=== PATIENT | male | born 1965 | race Caucasian/White ===

== ENCOUNTER 2021-09-26 20:43 | Inpatient (IN) | payer OTHER, SELFPAY ==
[2021-09-26 20:51] VITALS: BMI 26.9
[2021-09-26] MEDS: QUEtiapine Fumarate 50 MG TABLET PO (22:37)
[2021-09-26] MEDS: Doxepin HCl 10 MG CAPSULE 20 MG PO (22:37)
[2021-09-26] MEDS: QUEtiapine Fumarate 200 MG TABLET PO (22:37)
[2021-09-26] MEDS: Zolpidem Tartrate 5 MG TABLET 10 MG PO (22:37)
[2021-09-26] MEDS: Gabapentin 400 MG CAPSULE 1200 MG PO (22:37)
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
[2021-09-26] MEDS: clonazePAM 1 MG TABLET PO (22:46)
[2021-09-26 23:12] VITALS: BP 153/99; PULSE 65; RESP 16; TEMP 36.4; O2SAT 95
[2021-09-27] MEDS: clonazePAM 1 MG TABLET PO ×4 (03:37→20:26)
[2021-09-27] MEDS: hydrOXYzine HCL 25 MG TABLET PO ×2 (04:13→20:27)
[2021-09-27] MEDS: QUEtiapine Fumarate 50 MG TABLET PO ×3 (08:37→20:22)
[2021-09-27] MEDS: Gabapentin 400 MG CAPSULE 1200 MG PO ×3 (08:37→20:21)
[2021-09-27] MEDS: lisinopriL 40 MG TABLET PO (08:38)
[2021-09-27] MEDS: Cyclobenzaprine HCl 10 MG TABLET PO (08:39)
[2021-09-27] MEDS: Loratadine 10 MG TABLET PO (08:41)
[2021-09-27 09:01] VITALS: BP 168/110; PULSE 85; RESP 16
[2021-09-27] MEDS: methADONE HCl 20 MG/2 ML ORAL.CONC 165 MG PO (09:55)
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
[2021-09-27] MEDS: NaPROXEN 500 MG TABLET PO ×2 (15:24→20:22)
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
[2021-09-27 20:20] VITALS: BP 137/87; PULSE 86; TEMP 36.4
[2021-09-27] MEDS: Zolpidem Tartrate 5 MG TABLET 10 MG PO (20:20)
[2021-09-27] MEDS: Doxepin HCl 10 MG CAPSULE 20 MG PO (20:21)
[2021-09-27] MEDS: QUEtiapine Fumarate 200 MG TABLET PO (20:22)
[2021-09-28] MEDS: Throat Lozenge, Medicated LOZENGE 1 LOZENGE MUCOUS MEM ×3 (04:29→20:39)
[2021-09-28] MEDS: clonazePAM 1 MG TABLET PO ×4 (04:29→20:34)
[2021-09-28 06:00] VITALS: BP 134/91; PULSE 79; TEMP 36.3; O2SAT 95
[2021-09-28] MEDS: Gabapentin 400 MG CAPSULE 1200 MG PO ×3 (08:44→20:35)
[2021-09-28] MEDS: methADONE HCl 20 MG/2 ML ORAL.CONC 165 MG PO (08:44)
[2021-09-28] MEDS: NaPROXEN 500 MG TABLET PO ×2 (08:45→20:33)
[2021-09-28] MEDS: lisinopriL 40 MG TABLET PO (08:45)
[2021-09-28] MEDS: Loratadine 10 MG TABLET PO (08:45)
[2021-09-28] MEDS: QUEtiapine Fumarate 50 MG TABLET PO ×3 (08:45→20:35)
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
[2021-09-28] MEDS: Cyclobenzaprine HCl 10 MG TABLET PO ×2 (14:37→20:39)
[2021-09-28 17:15] VITALS: BP 134/81; PULSE 81; TEMP 36.6
[2021-09-28] MEDS: Doxepin HCl 10 MG CAPSULE 20 MG PO (20:32)
[2021-09-28] MEDS: Zolpidem Tartrate 5 MG TABLET 10 MG PO (20:32)
[2021-09-28] MEDS: QUEtiapine Fumarate 200 MG TABLET PO (20:35)
[2021-09-29] MEDS: clonazePAM 1 MG TABLET PO ×4 (03:52→19:53)
[2021-09-29] MEDS: Throat Lozenge, Medicated LOZENGE 1 LOZENGE MUCOUS MEM (03:52)
[2021-09-29 06:00] VITALS: BP 143/93; PULSE 83; RESP 18; TEMP 36.9; O2SAT 96
[2021-09-29] MEDS: NaPROXEN 500 MG TABLET PO ×2 (06:25→17:32)
[2021-09-29] MEDS: Cyclobenzaprine HCl 10 MG TABLET PO ×3 (06:26→19:53)
[2021-09-29] MEDS: Gabapentin 400 MG CAPSULE 1200 MG PO ×3 (08:23→19:54)
[2021-09-29] MEDS: Loratadine 10 MG TABLET PO (08:24)
[2021-09-29] MEDS: methADONE HCl 20 MG/2 ML ORAL.CONC 165 MG PO (08:24)
[2021-09-29] MEDS: hydrOXYzine HCL 25 MG TABLET PO (08:24)
[2021-09-29] MEDS: QUEtiapine Fumarate 50 MG TABLET PO ×3 (08:24→19:54)
[2021-09-29] MEDS: lisinopriL 40 MG TABLET PO (08:24)
[2021-09-29] MEDS: Metoprolol Tartrate 100 MG TABLET PO (12:50)
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
[2021-09-29] MEDS: Lidocaine 4 % Patch ADH..PATCH 1 PATCH TRANSDERMA (18:10)
[2021-09-29 18:50] VITALS: BP 150/80; PULSE 65; RESP 16; TEMP 36.4; O2SAT 97
[2021-09-29] MEDS: traZODone HCL 50 MG TABLET PO (19:53)
[2021-09-29] MEDS: Doxepin HCl 10 MG CAPSULE 20 MG PO (19:53)
[2021-09-29] MEDS: Zolpidem Tartrate 5 MG TABLET 10 MG PO (19:54)
[2021-09-29] MEDS: QUEtiapine Fumarate 200 MG TABLET PO (19:54)
[2021-09-30] MEDS: traZODone HCL 50 MG TABLET PO ×2 (00:53→19:38)
[2021-09-30] MEDS: clonazePAM 1 MG TABLET PO ×4 (00:53→19:38)
[2021-09-30] MEDS: Throat Lozenge, Medicated LOZENGE 1 LOZENGE MUCOUS MEM ×2 (00:53→14:07)
[2021-09-30] MEDS: NaPROXEN 500 MG TABLET PO ×2 (05:39→19:37)
[2021-09-30 05:55] VITALS: BP 145/94; PULSE 69; RESP 18; TEMP 36.3; O2SAT 98
[2021-09-30] MEDS: Loratadine 10 MG TABLET PO (07:49)
[2021-09-30] MEDS: Metoprolol Tartrate 100 MG TABLET PO (07:49)
[2021-09-30] MEDS: Gabapentin 400 MG CAPSULE 1200 MG PO ×3 (07:49→19:39)
[2021-09-30] MEDS: lisinopriL 40 MG TABLET PO (07:49)
[2021-09-30] MEDS: Lidocaine 4 % Patch ADH..PATCH 1 PATCH TRANSDERMA (07:49)
[2021-09-30] MEDS: methADONE HCl 20 MG/2 ML ORAL.CONC 165 MG PO (07:50)
[2021-09-30] MEDS: QUEtiapine Fumarate 50 MG TABLET PO ×3 (07:50→19:37)
[2021-09-30] MEDS: Cyclobenzaprine HCl 10 MG TABLET PO ×3 (08:07→19:36)
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
[2021-09-30 16:20] VITALS: BP 106/69; PULSE 60; TEMP 36.4
[2021-09-30] MEDS: Doxepin HCl 10 MG CAPSULE 20 MG PO (19:37)
[2021-09-30] MEDS: QUEtiapine Fumarate 200 MG TABLET PO (19:38)
[2021-09-30] MEDS: Zolpidem Tartrate 5 MG TABLET 10 MG PO (19:39)
[2021-10-01] MEDS: clonazePAM 1 MG TABLET PO ×3 (01:41→13:44)
[2021-10-01] MEDS: traZODone HCL 50 MG TABLET PO (01:42)
[2021-10-01] MEDS: Throat Lozenge, Medicated LOZENGE 1 LOZENGE MUCOUS MEM (05:07)
[2021-10-01] MEDS: Cyclobenzaprine HCl 10 MG TABLET PO ×2 (05:50→13:44)
[2021-10-01] MEDS: NaPROXEN 500 MG TABLET PO (05:51)
[2021-10-01 06:00] VITALS: BP 135/87; PULSE 67; TEMP 37.2; O2SAT 98
[2021-10-01] MEDS: QUEtiapine Fumarate 50 MG TABLET PO (07:57)
[2021-10-01] MEDS: Loratadine 10 MG TABLET PO (07:57)
[2021-10-01] MEDS: lisinopriL 40 MG TABLET PO (07:57)
[2021-10-01] MEDS: Metoprolol Tartrate 100 MG TABLET PO (07:58)
[2021-10-01] MEDS: methADONE HCl 20 MG/2 ML ORAL.CONC 165 MG PO (07:58)
[2021-10-01] MEDS: Lidocaine 4 % Patch ADH..PATCH 1 PATCH TRANSDERMA (07:58)
[2021-10-01] MEDS: Gabapentin 400 MG CAPSULE 1200 MG PO (07:58)
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
== END 2021-10-01 14:35 | disposition other institution (70) | DRG 755 ==
PROVIDERS: Admitting Provider Psychiatry & Neurology Psychiatry; PCP Colon & Rectal Surgery; Visit Provider Psychiatry & Neurology Psychiatry
DX: F43.25 Adjustment disorder with mixed disturbance of emotions and conduct (principal); R45.851 Suicidal ideations; F11.20 Opioid dependence, uncomplicated; F32.A Depression, unspecified; I10 Essential (primary) hypertension; G89.29 Other chronic pain; F43.12 Post-traumatic stress disorder, chronic; G47.00 Insomnia, unspecified; Z88.6 Allergy status to analgesic agent; Z79.899 Other long term (current) drug therapy

== ENCOUNTER 2021-11-14 12:23 | Emergency (ER) | payer OTHER, SELFPAY ==
[2021-11-14] MEDS: Ondansetron ODT 4 MG TAB.RAPDIS TRANSLINGU (12:58)
[2021-11-14 13:01] VITALS: BP 175/90; PULSE 80; RESP 18; TEMP 36.6; O2SAT 97; BMI 25.2
[2021-11-14 13:15] LABS: MANUAL DIFF FLAG NO
[2021-11-14 13:17] LABS: Basophils Percent Auto 0.1 % (0-2); Hematocrit 36.3 % (42.0-52.0); Hemoglobin 12.1 g/dl (14.0-18.0); Imm Gran Abs Auto 0.02 X10*3/uL (0.00-0.03); Imm Gran Pct Auto 0.3 % (0.0-0.4); Lymphocytes Absolute Auto 1.1 X10*3/uL (1.2-4.9); Lymphocytes Percent Auto 14.2 % (20-40); Mean Corpuscular HGB Conc 33.3 g/dl (31.0-36.0); Mean Corpuscular Hemoglobin 30.4 pg (27.0-33.0); Mean Corpuscular Volume 91.2 fL (80.0-98.0); Mean Platelet Volume 10.2 fL (9.4-12.4); Monocytes Absolute Auto 0.4 X10*3/uL (0.1-1.2); Monocytes Percent Auto 5.6 % (2-11); Neutrophils Absolute Auto 6.1 x10*3/uL (2.0-8.3); Neutrophils Percent Auto 79.8 % (45-73); Platelet Count 299 X10*3/uL (160-400); Red Blood Count 3.98 X10*6/uL (4.60-5.80); Red Cell Distribution Width 13.2 % (11.0-16.0); White Blood Count 7.7 X10*3/uL (4.8-10.8)
[2021-11-14 13:31] LABS: Anion Gap 16 (12-20); Blood Urea Nitrogen 6 mg/dL (9-16); Carbon Dioxide 26 mmol/L (22-29); Chloride 101 mmol/L (96-108); Creatinine Clr Calc Pharmacy 86.1; Estimated Glomerular Filt Rate > 60; Glucose Random 123 mg/dL (60-115); Potassium 3.7 mmol/L (3.3-5.1); Sodium 139 mmol/L (135-145)
--- NOTE | 2021-11-14 17:10 | PC.NURSE ---
other staff members concerned about patient orientation. patient is no longer vomiting, and is ambulating without difficulty. RN reassessing patient, patient confused to date, but oriented to place and situation and self. patient reports he would like to leave, charge made aware of patient's confusion, attempting to convice patient to remain for further assessment. patient denies any alcohol use, and is displaying no other symptoms of possible withdrawal other then mild confusion
--- NOTE | 2021-11-14 17:38 | ED.GENADULT ---
HPI - General Adult General Chief complaint: Nausea/Vomiting/Diarrhea Stated complaint: NAUSEA/VOMITING TODAY PER EMS Time Seen by Provider: 11/14/21 17:29 Source: patient Mode of arrival: EMS Limitations: no limitations History of Present Illness HPI narrative: Patient ran out of his Ativan complaining of anxiety multiple complaints throat pain very vague about symptoms also complained of body pain all over patient noncompliant with his medication has not taken his medicine for last 2- 3 days on arrival patient's blood pressure was 175/90 Related Data Home Medications Medication Instructions Recorded Confirmed albuterol sulfate 90 mcg/actuation 1 puff PO QID PRN 09/26/21 09/26/21 aerosol inhaler (ProAir HFA) cyclobenzaprine 10 mg tablet 1 tab PO TID PRN 09/26/21 09/26/21 doxepin 10 mg capsule 2 cap PO BEDTIME 09/26/21 09/26/21 gabapentin 800 mg tablet 1.5 tab PO TID 09/26/21 09/26/21 lisinopril 40 mg tablet 1 tab PO DAILY 09/26/21 09/26/21 loratadine 10 mg tablet 1 tab PO DAILY 09/26/21 09/26/21 naproxen 500 mg tablet 1 tab PO BID PRN 09/26/21 09/26/21 quetiapine 50 mg tablet 1 tab PO TID 09/26/21 09/26/21 zolpidem 10 mg tablet 1 tab PO BEDTIME 09/26/21 09/26/21 Previous Rx's Medication Instructions Recorded hydroxyzine HCl 25 mg tablet 25 mg PO TID PRN 30 Days #90 tab 10/01/21 lidocaine 4 % topical patch 1 patch TRANSDERMAL DAILY PRN 30 10/01/21 (Lidocaine Pain Relief) Days #30 ea lorazepam 1 mg tablet (Ativan) 1 mg PO BID PRN 16 Days #20 tab 10/01/21 methadone 10 mg/mL oral 165 mg (16.5 mL) PO DAILY #0 ml 10/01/21 concentrate (Methadose) metoprolol tartrate 100 mg tablet 100 mg PO DAILY 30 Days #30 tab 10/01/21 naloxone 4 mg/actuation nasal 4 mg INTRANASAL Q2M PRN 1 Days #1 10/01/21 spray (Narcan) ea quetiapine 100 mg tablet 200 mg PO BEDTIME 30 Days #60 tab 10/01/21 trazodone 50 mg tablet 50 mg PO BEDTIME PRN 30 Days #30 10/01/21 tab Allergies Allergy/AdvReac Type Severity Reaction Status Date / Time acetaminophen [From Tylenol] Allergy Shakiness Verified 09/26/21 21:06 ibuprofen [From Motrin] Allergy Abdominal Verified 09/26/21 21:06 Pain bee pollen [bee stings] AdvReac Severe Anaphylaxis Verified 09/26/21 21:06 Review of Systems Review of Systems: Yes all other systems are reviewed and are negative [facility] Past Medical History Medical History Chronic post-traumatic stress disorder (PTSD) Insomnia Social History Social History Household Members: Family Housing: Homeless Patient Tobacco Use Status: Never used Tobacco Substance Use Type: Heroin Advance Directives: No Advance Directives Information Provided: Yes service: No Sexual orientation: Straight/Heterosexual Physical Exam ED Vital Signs: Vital Signs - 24 hr 11/14/21 13:01 11/14/21 18:53 Temperature 98 F 97.5 F Pulse Rate 80 74 Respiratory Rate 18 17 Blood Pressure 175/90 H 163/113 H Pulse Oximetry 97 97 BMI result Body Mass Index 25.2 Appearance: Alert. Oriented X3. No acute distress. Anxious Eyes: PERRLA, No Nystagmus ENT: Pharynx normal. Oral Mucosa moist Neck: Normal inspection. Neck supple. CVS: Normal heart rate and rhythm. Pulses normal. Respiratory: No respiratory distress. Equal air entry bilateral, no wheezing/rales/rhonchi Abdomen: Soft and nontender. Bowel sounds are present, no mass palpable, Skin: Skin warm and dry. Normal skin color. Normal skin turgor. Extremities: No lower extremity edema. No calf tenderness Neuro: Oriented X 3. No motor deficit. No sensory deficit.No cerebellar signs , cranial nerves II-XII intact Medical Decision Making MDM Narrative Medical decision making narrative: Patient with anxiety with stable labs discharge patient home give Ativan and oxycodone in the ER Lab Data Lab results reviewed: Yes I reviewed the patient's lab results. Result diagrams: 11/14/21 13:05 11/14/21 13:05 Labs: Lab Results 11/14/21 11/14/2122 Range/Units 13:05 13:05 18:46 WBC 7.7 (4.8-10.8) X10*3/uL RBC 3.98 L (4.60-5.80) X10*6/uL Hgb 12.1 L (14.0-18.0) g/dl Hct 36.3 L (42.0-52.0) % MCV 91.2 (80.0-98.0) fL MCH 30.4 (27.0-33.0) pg MCHC 33.3 (31.0-36.0) g/dl RDW 13.2 (11.0-16.0) % Plt Count 299 (160-400) X10*3/uL MPV 10.2 (9.4-12.4) fL Immature Gran % (Auto) 0.3 (0.0-0.4) % Neut % (Auto) 79.8 H (45-73) % Lymph % (Auto) 14.2 L (20-40) % [place] % (Auto) 5.6 (2-11) % Eos % (Auto) 0.0 (0-4) % Baso % (Auto) 0.1 (0-2) % Lymph # (Auto) 1.1 L (1.2-4.9) X10*3/uL [place] # (Auto) 0.4 (0.1-1.2) X10*3/uL Eos # (Auto) 0.0 (0.0-0.4) X10*3/uL Baso # (Auto) 0.0 (0.0-0.2) X10*3/uL Abs Immat Gran (auto) 0.02 (0.00-0.03) X10*3/uL Absolute Neuts (auto) 6.1 (2.0-8.3) x10*3/uL Absolute Nucleated RBC 0.000 (0.0-0.012) X10*3/uL Nucleated RBC % (auto) 0.0 (0.0-0.2) /100WBC Sodium 139 (135-145) mmol/L Potassium 3.7 (3.3-5.1) mmol/L Chloride 101 (96-108) mmol/L Carbon Dioxide 26 (22-29) mmol/L Anion Gap 16 (12-20) BUN 6 L (9-16) mg/dL Creatinine 0.98 (0.5-1.4) mg/dL Estim Creat Clear Calc 86.1 Estimated GFR > 60 Random Glucose 123 H (60-115) mg/dL Calcium 10.0 (8.4-10.2) mg/dL Urine Color YELLOW Urine Appearance HAZY Urine pH 7.0 (5.0-8.0) Ur Specific [place] 1.020 (1.005-1.025) Urine Protein TRACE (NEG-TRACE) MG/DL Urine Glucose (UA) NEG (NEG) MG/DL Urine Ketones 5 (NEG) MG/DL Urine Blood NEG (NEG) Urine Nitrite NEG (NEG) Ur Leukocyte Esterase NEG (NEG) Urine RBC 0 (0) /HPF Urine WBC 0 (0-4) /HPF Ur Squamous Epith Cells NONE /LPF Amorphous Sediment 2+ /LPF Urine Bacteria 1+ /LPF Discharge Plan Discharge Clinical Impression: Anxiety Patient Disposition: Home, Self-Care Instructions: Anxiety (ED) Additional Instructions: Take medication as prescribed by psychiatrist and follow with them Prescriptions: No Action cyclobenzaprine 10 mg tablet 1 tab PO TID PRN (Reason: Muscle Spasm) 0RF doxepin 10 mg capsule 2 cap PO BEDTIME 0RF gabapentin 800 mg tablet 1.5 tab PO TID 0RF zolpidem 10 mg tablet 1 tab PO BEDTIME 0RF albuterol sulfate [ProAir HFA] 90 mcg/actuation HFA aerosol inhaler 1 puff PO QID PRN (Reason: wheezing) 0RF lisinopril 40 mg tablet 1 tab PO DAILY 0RF loratadine 10 mg tablet 1 tab PO DAILY 0RF naproxen 500 mg tablet 1 tab PO BID PRN (Reason: pain) 0RF quetiapine 50 mg tablet 1 tab PO TID 0RF metoprolol tartrate 100 mg Tablet 100 mg PO DAILY 30 Days Qty: 30 0RF Protocol: Hold for SBP/HR < HOLD for SBP < : 90 HOLD for HR < : 60 hydroxyzine HCl 25 mg Tablet 25 mg PO TID PRN (Reason: Anxiety) 30 Days Qty: 90 0RF trazodone 50 mg Tablet 50 mg PO BEDTIME PRN (Reason: Insomnia) 30 Days Qty: 30 0RF Rx Instructions: take if Ambien wares off methadone [Methadose] 10 mg/mL Concentrate 165 mg PO DAILY Qty: 0 0RF lidocaine [Lidocaine Pain Relief] 4 % Adhesive Patch,Medicated 1 patch transdermal DAILY PRN (Reason: back pain) 30 Days Qty: 30 0RF Protocol: Apply to: Apply to: back quetiapine 100 mg tablet 200 mg PO BEDTIME 30 Days Qty: 60 0RF lorazepam [Ativan] 1 mg tablet 1 mg PO BID PRN (Reason: anxiety/benzo withdrawal) 16 Days Qty: 20 0RF naloxone [Narcan] 4 mg/actuation spray,non-aerosol 4 mg intranasal Q2M PRN (Reason: opioid overdose) 1 Days Qty: 1 0RF Rx Instructions: spray 1 dose into ONE nostril; alternate nostrils w each dose until help arrives Interventions: ED Discharge Assessment Last Done: 11/14/21 19:19 Discharge Date/Time: 11/14/21 19:19
[2021-11-14] MEDS: oxyCODONE HCl Immed Release 5 MG TABLET PO (18:41)
[2021-11-14] MEDS: LORazepam 1 MG TABLET 2 MG PO (18:41)
[2021-11-14 18:53] VITALS: BP 163/113; PULSE 74; RESP 17; TEMP 36.4; O2SAT 97
[2021-11-14 18:54] LABS: Appearance Urine HAZY; Color Urine YELLOW; Glucose Urine UA NEG (NEG); Leukocyte Esterase Urine NEG (NEG); Nitrite Urine NEG (NEG); Urine Blood NEG (NEG); Urine Ketones 5 MG/DL (NEG); Urine Protein TRACE MG/DL (NEG-TRACE)
[2021-11-14 19:00] LABS: Amorphous Sediment Urine 2+ /LPF; Bacteria Urine 1+ /LPF; RBC Urine 0 /HPF (0); WBC Urine 0 /HPF (0-4)
[2021-11-14] MEDS: lisinopriL 40 MG TABLET PO (19:24)
[2021-11-14] MEDS: Metoprolol Tartrate 100 MG TABLET PO (19:25)
== END 2021-11-14 19:19 | disposition home or self-care (01) ==
PROVIDERS: Emergency Provider Internal Medicine
DX: F41.9 Anxiety disorder, unspecified (principal); R11.2 Nausea with vomiting, unspecified; M79.10 Myalgia, unspecified site; Z91.14 Patient's other noncompliance with medication regimen
CPT/HCPCS: 36415; 80048; 81001; 85025; 99283; 99284

== ENCOUNTER 2021-11-15 00:16 | Inpatient (IN) | payer OTHER, SELFPAY ==
--- NOTE | 2021-11-15 | ECG_ITS ---
Test Reason : MED CLEARANCE Blood Pressure : / mmHG Vent. Rate : 074 BPM Atrial Rate : 074 BPM P-R Int : 134 ms QRS Dur : 104 ms QT Int : 398 ms P-R-T Axes : 053 015 053 degrees QTc Int : 441 ms Normal sinus rhythm Incomplete right bundle branch block Borderline ECG No previous ECGs available Referred By: Hodan Zaidi Electronically Signed By:AQUILES SABA MD
--- NOTE | 2021-11-15 00:27 | ED.PSYCH ---
HPI - Psych General Chief Complaint: Psychiatric Symptoms Stated Complaint: Psych Time Seen by Provider: 11/15/21 00:26 Source: patient and old records reviewed Mode of arrival: EMS Limitations: other (poor historian confusion) History of Present Illness MD complaint: anxiety and other (delusions, found wandering) Onset (ago): month(s) (1) Duration: constant History of same: Yes Relieving factors: none Exacerbating factors: none Context: other ( I haven't been right for about a month ) Associated psychiatric symptoms: delusions Associated symptoms: denies other symptoms Treatments prior to arrival: none Related Data Home Medications Medication Instructions Recorded Confirmed doxepin 10 mg capsule 2 cap PO BEDTIME 09/26/21 11/15/21 gabapentin 800 mg tablet 1.5 tab PO TID 09/26/21 11/15/21 lisinopril 40 mg tablet 1 tab PO DAILY 09/26/21 11/15/21 naproxen 500 mg tablet 1 tab PO BID PRN 09/26/21 11/15/21 albuterol sulfate 90 mcg/actuation 1 puff PO QID PRN 11/15/21 11/15/21 aerosol inhaler (ProAir HFA) clonazepam 1 mg tablet 1 tab PO QID PRN 11/15/21 11/15/21 loratadine 10 mg tablet 1 tab PO DAILY 11/15/21 11/15/21 metoprolol succinate 100 mg 1 tab PO DAILY 11/15/21 11/15/21 tablet,extended release 24 hr primidone 50 mg tablet 1 tab PO TID 11/15/21 11/15/21 quetiapine 50 mg tablet 1 tab PO TID 11/15/21 11/15/21 umeclidinium 62.5 mcg/actuation 1 puff PO DAILY 11/15/21 11/15/21 blister powder for inhalation (Incruse Ellipta) zolpidem 10 mg tablet 1 tab PO BEDTIME 11/15/21 11/15/21 Previous Rx's Medication Instructions Recorded hydroxyzine HCl 25 mg tablet 25 mg PO TID PRN 30 Days #90 tab 10/01/21 methadone 10 mg/mL oral 165 mg (16.5 mL) PO DAILY #0 ml 10/01/21 concentrate (Methadose) Allergies Allergy/AdvReac Type Severity Reaction Status Date / Time acetaminophen [From Tylenol] Allergy Shakiness Verified 09/26/21 21:06 ibuprofen [From Motrin] Allergy Abdominal Verified 09/26/21 21:06 Pain bee pollen [bee stings] AdvReac Severe Anaphylaxis Verified 09/26/21 21:06 Review of Systems Review of Systems: ROS unable to be obtained due to poor historian and confusion PMFSH Past Medical History Attestation statement: The following information was validated with the patient. Medical History Chronic post-traumatic stress disorder (PTSD) Insomnia Social History Social History Household Members: Family Housing: Homeless Patient Tobacco Use Status: Never used Tobacco Substance Use Type: Heroin Advance Directives: No Advance Directives Information Provided: Yes service: No Sexual orientation: Straight/Heterosexual Physical Exam Vital Signs: Vital Signs: Last Vital Signs Temp 97.8 F 11/15/21 00:32 Pulse 61 11/15/21 00:32 Resp 16 11/15/21 00:32 BP 157/105 H 11/15/21 00:32 Pulse Ox 97 11/15/21 00:32 BMI result Body Mass Index 26.6 Appearance: Alert. Oriented X3. Anxious mild acute distress. Clothes are wet Eyes: Pupils equal, round and reactive to light. ENT: Pharynx normal. Neck: Normal inspection. Neck supple. CVS: tachycardic heart rate and rhythm. Pulses normal. Respiratory: No respiratory distress. Breath sounds normal. Abdomen: Soft and nontender. Skin: Skin warm and dry. Normal skin color. Normal skin turgor. Extremities: No lower extremity edema. Neuro: Oriented X 3. No motor deficit. No sensory deficit. Cn2-12 intact Psych: started to mutter to himself about not following the master and listening to his dad I know what I'm saying is not right when asked how long this has been going on he states the last month Course Course Course Narrative: Physician observation started at 207am. Patient placed in physician observation because the patient needed more time for BHN to asses the need for psych admission. At the time observation was started the patient's vitals were stable, patient is alert and oriented but slightly anxious, Neuro: nonfocal, CV RRR, Lungs clear PRN ativan and olanzapine given his agitation and delusions MDM - Psych MDM Narrative Medical decision making narrative: 55 yo male with hx of PTSD, insomnia, susbstance abuse, HTN comes in with c/o delusions, muttering to himself, found wandering in the rain. Notes he hasn't been himself for a bout a month. Admitted back in September for anxiety, insomnia and PTSD - at this time will need labs, drug screen, PO ativan for anxiety, will order N consult. Lab Data Result diagrams: 11/15/21 01:27 11/15/21 01:27 Labs: Lab Results 11/15/21 11/15/21 11/15/21 Range/Units 00:47 01:27 01:27 WBC 11.3 H (4.8-10.8) X10*3/uL RBC 4.45 L (4.60-5.80) X10*6/uL Hgb 13.7 L (14.0-18.0) g/dl Hct 41.4 L (42.0-52.0) % MCV 93.0 (80.0-98.0) fL MCH 30.8 (27.0-33.0) pg MCHC 33.1 (31.0-36.0) g/dl RDW 13.2 (11.0-16.0) % Plt Count 299 (160-400) X10*3/uL MPV 10.6 (9.4-12.4) fL Immature Gran % (Auto) 0.4 (0.0-0.4) % Neut % (Auto) 83.2 H (45-73) % Lymph % (Auto) 11.6 L (20-40) % [place] % (Auto) 4.4 (2-11) % Eos % (Auto) 0.1 (0-4) % Baso % (Auto) 0.3 (0-2) % Lymph # (Auto) 1.3 (1.2-4.9) X10*3/uL [place] # (Auto) 0.5 (0.1-1.2) X10*3/uL Eos # (Auto) 0.0 (0.0-0.4) X10*3/uL Baso # (Auto) 0.0 (0.0-0.2) X10*3/uL Abs Immat Gran (auto) 0.05 H (0.00-0.03) X10*3/uL Absolute Neuts (auto) 9.4 H (2.0-8.3) x10*3/uL Absolute Nucleated RBC 0.000 (0.0-0.012) X10*3/uL Nucleated RBC % (auto) 0.0 (0.0-0.2) /100WBC Sodium 138 (135-145) mmol/L Potassium 3.5 (3.3-5.1) mmol/L Chloride 99 (96-108) mmol/L Carbon Dioxide 25 (22-29) mmol/L Anion Gap 18 (12-20) BUN 10 D (9-16) mg/dL Creatinine 1.08 (0.5-1.4) mg/dL Estim Creat Clear Calc 73.1 Estimated GFR > 60 Random Glucose 108 (60-115) mg/dL Calcium 10.2 (8.4-10.2) mg/dL Magnesium 1.8 (1.6-2.6) mg/dL Total Bilirubin 0.8 (0.0-1.0) mg/dL Direct Bilirubin 0.3 (0.0-0.5) mg/dL AST 16 (5-37) U/L ALT 7 (0-40) U/L Alkaline Phosphatase 75 (39-117) U/L Ammonia (13-55) umol/L Total Protein 8.6 H (6.5-8.0) g/dL Albumin 4.5 (3.5-5.0) g/dL TSH (0.32-4.0) uIU/mL Urine Opiates Screen (Not Detect) Urine Fentanyl Screen (Not Detect) Ur Barbiturates Screen (Not Detect) Ur Phencyclidine Scrn (Not Detect) Ur Amphetamines Screen (Not Detect) U Benzodiazepines Scrn (Not Detect) Urine Cocaine Screen (Not Detect) U Marijuana (THC) Screen (Not Detect) Ethyl Alcohol mg/dL COVID-19 (JABARI) Negative (Negative) COVID-19 Clin Com See Note 11/15/21 11/15/21 11/15/21 Range/Units 01:27 01:27 02:05 WBC (4.8-10.8) X10*3/uL RBC (4.60-5.80) X10*6/uL Hgb (14.0-18.0) g/dl Hct (42.0-52.0) % MCV (80.0-98.0) fL MCH (27.0-33.0) pg MCHC (31.0-36.0) g/dl RDW (11.0-16.0) % Plt Count (160-400) X10*3/uL MPV (9.4-12.4) fL Immature Gran % (Auto) (0.0-0.4) % Neut % (Auto) (45-73) % Lymph % (Auto) (20-40) % [place] % (Auto) (2-11) % Eos % (Auto) (0-4) % Baso % (Auto) (0-2) % Lymph # (Auto) (1.2-4.9) X10*3/uL [place] # (Auto) (0.1-1.2) X10*3/uL Eos # (Auto) (0.0-0.4) X10*3/uL Baso # (Auto) (0.0-0.2) X10*3/uL Abs Immat Gran (auto) (0.00-0.03) X10*3/uL Absolute Neuts (auto) (2.0-8.3) x10*3/uL Absolute Nucleated RBC (0.0-0.012) X10*3/uL Nucleated RBC % (auto) (0.0-0.2) /100WBC Sodium (135-145) mmol/L Potassium (3.3-5.1) mmol/L Chloride (96-108) mmol/L Carbon Dioxide (22-29) mmol/L Anion Gap (12-20) BUN (9-16) mg/dL Creatinine (0.5-1.4) mg/dL Estim Creat Clear Calc Estimated GFR Random Glucose (60-115) mg/dL Calcium (8.4-10.2) mg/dL Magnesium (1.6-2.6) mg/dL Total Bilirubin (0.0-1.0) mg/dL Direct Bilirubin (0.0-0.5) mg/dL AST (5-37) U/L ALT (0-40) U/L Alkaline Phosphatase (39-117) U/L Ammonia 27 (13-55) umol/L Total Protein (6.5-8.0) g/dL Albumin (3.5-5.0) g/dL TSH 1.68 (0.32-4.0) uIU/mL Urine Opiates Screen (Not Detect) Urine Fentanyl Screen (Not Detect) Ur Barbiturates Screen (Not Detect) Ur Phencyclidine Scrn (Not Detect) Ur Amphetamines Screen (Not Detect) U Benzodiazepines Scrn (Not Detect) Urine Cocaine Screen (Not Detect) U Marijuana (THC) Screen (Not Detect) Ethyl Alcohol < 10 mg/dL COVID-19 (JABARI) (Negative) COVID-19 Clin Com 11/15/21 Range/Units 03:46 WBC (4.8-10.8) X10*3/uL RBC (4.60-5.80) X10*6/uL Hgb (14.0-18.0) g/dl Hct (42.0-52.0) % MCV (80.0-98.0) fL MCH (27.0-33.0) pg MCHC (31.0-36.0) g/dl RDW (11.0-16.0) % Plt Count (160-400) X10*3/uL MPV (9.4-12.4) fL Immature Gran % (Auto) (0.0-0.4) % Neut % (Auto) (45-73) % Lymph % (Auto) (20-40) % [place] % (Auto) (2-11) % Eos % (Auto) (0-4) % Baso % (Auto) (0-2) % Lymph # (Auto) (1.2-4.9) X10*3/uL [place] # (Auto) (0.1-1.2) X10*3/uL Eos # (Auto) (0.0-0.4) X10*3/uL Baso # (Auto) (0.0-0.2) X10*3/uL Abs Immat Gran (auto) (0.00-0.03) X10*3/uL Absolute Neuts (auto) (2.0-8.3) x10*3/uL Absolute Nucleated RBC (0.0-0.012) X10*3/uL Nucleated RBC % (auto) (0.0-0.2) /100WBC Sodium (135-145) mmol/L Potassium (3.3-5.1) mmol/L Chloride (96-108) mmol/L Carbon Dioxide (22-29) mmol/L Anion Gap (12-20) BUN (9-16) mg/dL Creatinine (0.5-1.4) mg/dL Estim Creat Clear Calc Estimated GFR Random Glucose (60-115) mg/dL Calcium (8.4-10.2) mg/dL Magnesium (1.6-2.6) mg/dL Total Bilirubin (0.0-1.0) mg/dL Direct Bilirubin (0.0-0.5) mg/dL AST (5-37) U/L ALT (0-40) U/L Alkaline Phosphatase (39-117) U/L Ammonia (13-55) umol/L Total Protein (6.5-8.0) g/dL Albumin (3.5-5.0) g/dL TSH (0.32-4.0) uIU/mL Urine Opiates Screen Not Detected (Not Detect) Urine Fentanyl Screen POSITIVE H (Not Detect) Ur Barbiturates Screen POSITIVE H (Not Detect) Ur Phencyclidine Scrn Not Detected (Not Detect) Ur Amphetamines Screen Not Detected (Not Detect) U Benzodiazepines Scrn Not Detected (Not Detect) Urine Cocaine Screen POSITIVE H (Not Detect) U Marijuana (THC) Screen Not Detected (Not Detect) Ethyl Alcohol mg/dL COVID-19 (JABARI) (Negative) COVID-19 Clin Com Discharge Plan Discharge Clinical Impression: Anxiety, Polysubstance abuse Patient Disposition: Still a Patient Prescriptions: No Action clonazepam 1 mg tablet 1 tab PO QID PRN (Reason: Anxiety) 0RF quetiapine 50 mg tablet 1 tab PO TID 0RF metoprolol succinate 100 mg tablet extended release 24 hr 1 tab PO DAILY 0RF primidone 50 mg tablet 1 tab PO TID 0RF zolpidem 10 mg tablet 1 tab PO BEDTIME 0RF albuterol sulfate [ProAir HFA] 90 mcg/actuation HFA aerosol inhaler 1 puff PO QID PRN (Reason: wheezing) 0RF Incruse Ellipta 62.5 mcg/actuation blister with device 1 puff PO DAILY 0RF loratadine 10 mg tablet 1 tab PO DAILY 0RF doxepin 10 mg capsule 2 cap PO BEDTIME 0RF gabapentin 800 mg tablet 1.5 tab PO TID 0RF lisinopril 40 mg tablet 1 tab PO DAILY 0RF naproxen 500 mg tablet 1 tab PO BID PRN (Reason: pain) 0RF hydroxyzine HCl 25 mg Tablet 25 mg PO TID PRN (Reason: Anxiety) 30 Days Qty: 90 0RF methadone [Methadose] 10 mg/mL Concentrate 165 mg PO DAILY Qty: 0 0RF
[2021-11-15 00:32] VITALS: BP 157/105; PULSE 61; RESP 16; TEMP 36.6; O2SAT 97; BMI 26.6
[2021-11-15] MEDS: LORazepam 1 MG TABLET 2 MG PO (01:31)
[2021-11-15 01:34] LABS: Basophils Percent Auto 0.3 % (0-2); Eosinophils Percent Auto 0.1 % (0-4); Imm Gran Pct Auto 0.4 % (0.0-0.4); Lymphocytes Percent Auto 11.6 % (20-40); Mean Corpuscular Hemoglobin 30.8 pg (27.0-33.0); Mean Platelet Volume 10.6 fL (9.4-12.4); PLT CLUMP 1; Red Cell Distribution Width 13.2 % (11.0-16.0); SCAN SMEAR FLAG 1
[2021-11-15 01:35] LABS: Hematocrit 41.4 % (42.0-52.0); Hemoglobin 13.7 g/dl (14.0-18.0); Imm Gran Abs Auto 0.05 X10*3/uL (0.00-0.03); Lymphocytes Absolute Auto 1.3 X10*3/uL (1.2-4.9); Mean Corpuscular HGB Conc 33.1 g/dl (31.0-36.0); Monocytes Absolute Auto 0.5 X10*3/uL (0.1-1.2); Monocytes Percent Auto 4.4 % (2-11); Neutrophils Absolute Auto 9.4 x10*3/uL (2.0-8.3); Neutrophils Percent Auto 83.2 % (45-73); Red Blood Count 4.45 X10*6/uL (4.60-5.80)
[2021-11-15 01:36] LABS: White Blood Count 11.3 X10*3/uL (4.8-10.8)
[2021-11-15 01:37] LABS: COVID-19 Test Negative (Negative)
[2021-11-15 01:37] LABS: MANUAL DIFF FLAG NO
[2021-11-15 01:53] LABS: Platelet Count 299 X10*3/uL (160-400)
[2021-11-15 01:55] LABS: Ethanol < 10 mg/dL
[2021-11-15 01:59] LABS: Alanine Aminotransferase 7 U/L (0-40); Albumin Level 4.5 g/dL (3.5-5.0); Alkaline Phosphatase 75 U/L (39-117); Anion Gap 18 (12-20); Aspartate Amino Transferase 16 U/L (5-37); Bilirubin Direct 0.3 mg/dL (0.0-0.5); Bilirubin Total 0.8 mg/dL (0.0-1.0); Blood Urea Nitrogen 10 mg/dL (9-16); Calcium 10.2 mg/dL (8.4-10.2); Carbon Dioxide 25 mmol/L (22-29); Chloride 99 mmol/L (96-108); Creatinine Clr Calc Pharmacy 73.1; Estimated Glomerular Filt Rate > 60; Glucose Random 108 mg/dL (60-115); Magnesium 1.8 mg/dL (1.6-2.6); Potassium 3.5 mmol/L (3.3-5.1); Sodium 138 mmol/L (135-145); Total Protein 8.6 g/dL (6.5-8.0)
[2021-11-15 02:19] LABS: Ammonia 27 umol/L (13-55)
[2021-11-15 02:19] LABS: TSH reflex Free T4 1.68 uIU/mL (0.32-4.0)
[2021-11-15 04:04] LABS: Amphetamine Screen Urine Not Detected (Not Detect); Barbiturates, Urine POSITIVE (Not Detect); Benzodiazepines Screen Urine Not Detected (Not Detect); Cannabinoid Screen Urine Not Detected (Not Detect); Cocaine Screen Urine POSITIVE (Not Detect); Fentanyl, urine POSITIVE (Not Detect); Opiate Screen Urine Not Detected (Not Detect); Phencyclidine Screen Urine Not Detected (Not Detect)
[2021-11-15] MEDS: clonazePAM 1 MG TABLET PO ×3 (04:28→23:40)
[2021-11-15] MEDS: hydrOXYzine HCL 25 MG TABLET PO (04:28)
[2021-11-15] MEDS: OLANZapine 5 MG TABLET PO (04:29)
--- NOTE | 2021-11-15 05:42 | PC.NURSE ---
Patient was awake whole night, self dialoguing at time yelling at TV show, Olanzapine 5 mg PO, Klonopin 1 mg PO, and Hydroxyzine 25 mg PO, administered with little to no effect/med compliant/little to no effect, BHN referral completed/confirmed/pending evaluation in the morning, MAR updated, VSS, will continue to monitor.
--- NOTE | 2021-11-15 07:19 | PC.NURSE ---
patient appears to remain asleep at present respirations are even and unlabored patient appears in no distress
[2021-11-15] MEDS: QUEtiapine Fumarate 50 MG TABLET PO ×3 (08:05→20:46)
[2021-11-15] MEDS: Gabapentin 400 MG CAPSULE 1200 MG PO ×4 (08:05→20:54)
[2021-11-15] MEDS: Loratadine 10 MG TABLET PO (08:05)
[2021-11-15] MEDS: Metoprolol Succinate ER 100 MG TAB.ER.24H PO (08:06)
[2021-11-15] MEDS: Primidone 50 MG TABLET PO ×3 (08:06→20:46)
[2021-11-15] MEDS: lisinopriL 40 MG TABLET PO (08:06)
[2021-11-15 08:17] VITALS: BP 149/98; PULSE 81; RESP 18; O2SAT 99
[2021-11-15 12:18] VITALS: BP 144/103; PULSE 87; O2SAT 97
[2021-11-15] MEDS: Doxepin HCl 10 MG CAPSULE 20 MG PO (20:53)
[2021-11-15 22:54] VITALS: BP 140/88; PULSE 85; RESP 20; TEMP 37.5; O2SAT 98
[2021-11-15] MEDS: NaPROXEN 500 MG TABLET PO (23:42)
[2021-11-16] MEDS: QUEtiapine Fumarate 100 MG TABLET PO (00:27)
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
[2021-11-16 06:00] VITALS: BP 156/109; PULSE 101; RESP 20; TEMP 36.7; O2SAT 96
[2021-11-16] MEDS: clonazePAM 1 MG TABLET PO ×3 (06:02→20:28)
[2021-11-16 07:50] LABS: Estimated Average Glucose 82 mg/dL; Hemoglobin A1c % 4.5 %
[2021-11-16 07:55] LABS: Alanine Aminotransferase 6 U/L (0-40); Albumin Level 3.8 g/dL (3.5-5.0); Alkaline Phosphatase 62 U/L (39-117); Anion Gap 14 (12-20); Aspartate Amino Transferase 13 U/L (5-37); Bilirubin Total 0.7 mg/dL (0.0-1.0); Blood Urea Nitrogen 15 mg/dL (9-16); Calcium 10.1 mg/dL (8.4-10.2); Carbon Dioxide 26 mmol/L (22-29); Chloride 102 mmol/L (96-108); Cholesterol 224 mg/dL; Creatinine Clr Calc Pharmacy 83.1; Estimated Glomerular Filt Rate > 60; Glucose Fasting 103 mg/dL (60-99); HDL Cholesterol 47 mg/dL; LDL Cholesterol Calculated 160 mg/dl; Potassium 3.6 mmol/L (3.3-5.1); Sodium 138 mmol/L (135-145); Total Protein 7.1 g/dL (6.5-8.0); Triglycerides 87 mg/dL
[2021-11-16] MEDS: Metoprolol Succinate ER 100 MG TAB.ER.24H PO (08:27)
[2021-11-16] MEDS: Gabapentin 400 MG CAPSULE 1200 MG PO ×3 (08:27→20:27)
[2021-11-16] MEDS: lisinopriL 40 MG TABLET PO (08:28)
[2021-11-16] MEDS: QUEtiapine Fumarate 50 MG TABLET PO ×3 (08:28→20:26)
[2021-11-16] MEDS: Primidone 50 MG TABLET PO ×3 (08:28→20:25)
[2021-11-16] MEDS: NaPROXEN 500 MG TABLET PO ×2 (08:28→20:29)
[2021-11-16] MEDS: Loratadine 10 MG TABLET PO (08:28)
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
[2021-11-16] MEDS: hydrOXYzine HCL 25 MG TABLET PO (11:14)
[2021-11-16] MEDS: Buprenorphine/Naloxone 2/0.5mg FILM 1 FILM SUBLINGUAL ×3 (12:22→20:29)
[2021-11-16] MEDS: Propranolol HCL 10 MG TABLET PO ×2 (12:23→14:36)
[2021-11-16] MEDS: Cyclobenzaprine HCl 10 MG TABLET PO (13:12)
[2021-11-16 14:38] VITALS: BP 121/80; PULSE 83
[2021-11-16 16:28] VITALS: BP 132/81; PULSE 68; RESP 16; TEMP 36; O2SAT 98
[2021-11-16] MEDS: Doxepin HCl 25 MG CAPSULE 50 MG PO (20:24)
[2021-11-16] MEDS: Zolpidem Tartrate 5 MG TABLET PO (20:25)
[2021-11-16] MEDS: QUEtiapine Fumarate 300 MG TABLET PO (20:26)
[2021-11-17] MEDS: Buprenorphine/Naloxone 2/0.5mg FILM 1 FILM SUBLINGUAL ×4 (05:02→21:08)
[2021-11-17] MEDS: clonazePAM 1 MG TABLET PO ×4 (05:04→21:07)
[2021-11-17 06:00] VITALS: BP 106/63; PULSE 73; TEMP 36.1; O2SAT 97
[2021-11-17] MEDS: Loratadine 10 MG TABLET PO (08:07)
[2021-11-17] MEDS: Gabapentin 400 MG CAPSULE 1200 MG PO ×3 (08:07→21:00)
[2021-11-17] MEDS: Metoprolol Succinate ER 100 MG TAB.ER.24H PO (08:07)
[2021-11-17] MEDS: Primidone 50 MG TABLET PO ×3 (08:08→21:01)
[2021-11-17] MEDS: lisinopriL 40 MG TABLET PO (08:08)
[2021-11-17] MEDS: Cyclobenzaprine HCl 10 MG TABLET PO ×3 (08:08→21:05)
[2021-11-17] MEDS: QUEtiapine Fumarate 50 MG TABLET PO ×3 (08:08→21:01)
--- NOTE | 2021-11-17 11:26 | P.PNPSI_ITS ---
Subjective Subjective Date of Service: 11/17/21 Reason For Visit: Disorganization Interim History: pt says still anxious but feeling better; mood is better and no SI. Patient had trouble sleeping last night but agrees to try again tonight up taking Ambien only if needed or for early waking up. Also agrees to schedule propranolol to see if can stop tremor. Patient feels that Suboxone p.r.n. was helpful for back pain and wants to continue. Denies side effects from other medication increases Mental Status Exam Mental Status Exam Narrative: Pt is alert and oriented; behavior is cooperative; patient is not in distress; well groomed and with good hygiene, wearing baseball cap; mood is described as anxious and affect congruent; eye contact appropriate; Speech is normal rate, volume and prosody and not pressured; no psychomotor agitation/retardation present; thought process is organized and goal directed; Thought content is medications and homelessness; otherwise pertinent to relevant topics and without any delusional content, paranoid ideations or grandiosity; Denies any SI/HI; There is no evidence of perceptual disturbance. ?Patients insight and judgment are fair and adequate. Diagnostics Vital Signs (24Hr): Vital Signs - 24 hr 11/16/21 14:38 11/16/21 16:28 11/17/21 06:00 Temperature 96.8 F 97.0 F Pulse Rate 83 68 73 Respiratory Rate 16 Blood Pressure 121/80 132/81 106/63 Pulse Oximetry 98 97 BMI result Body Mass Index 26.6 Labs Results: 11/15/21 01:27 11/16/21 07:11 Labs: Laboratory Results - last 48 hr 11/16/21 11/16/21 07:11 07:11 Sodium 138 Potassium 3.6 Chloride 102 Carbon Dioxide 26 Anion Gap 14 BUN 15 Creatinine 0.95 Estim Creat Clear Calc 83.1 Estimated GFR > 60 Fasting Glucose 103 H Estimat Average Glucose 82 Hemoglobin A1c % 4.5 Calcium 10.1 Total Bilirubin 0.7 AST 13 ALT 6 Alkaline Phosphatase 62 Total Protein 7.1 Albumin 3.8 Triglycerides 87 Cholesterol 224 LDL Cholesterol, Calc 160 HDL Cholesterol 47 Medications Medications Current Medications Al Hydroxide/Mg Hydroxide (Magnesium Hydrox/Alum Hydrox 30 Ml Oral.Susp) 30 ml PO Q6H PRN PRN Reason: Heartburn/Nausea Albuterol Sulfate (Albuterol Sulfate 90 Mcg 8 Gm Inhaler) 1 puff INHALE QID PRN PRN Reason: wheezing Buprenorphine/Naloxone (Buprenorphine/Naloxone 2/0.5mg Film) 1 film SUBLINGUAL QID PRN PRN Reason: pain moderate to severe Last Admin: 11/17/21 11:19 Dose: 1 film Documented by: Clonazepam (Clonazepam 1 Mg Tablet) 1 mg PO QID PRN PRN Reason: Anxiety Last Admin: 11/17/21 11:19 Dose: 1 mg Documented by: Cyclobenzaprine HCl (Cyclobenzaprine Hcl 10 Mg Tablet) 10 mg PO TID PRN PRN Reason: muscle cramps Last Admin: 11/17/21 08:08 Dose: 10 mg Documented by: Diphenhydramine HCl (Diphenhydramine Hcl 25 Mg Tablet) 50 mg PO Q4H PRN PRN Reason: agitation Doxepin HCl (Doxepin Hcl 25 Mg Capsule) 50 mg PO BEDTIME [facility] Last Admin: 11/16/21 20:24 Dose: 50 mg Documented by: Gabapentin (Gabapentin 400 Mg Capsule) 1,200 mg PO TID [facility] Last Admin: 11/17/21 08:07 Dose: 1,200 mg Documented by: Haloperidol (Haloperidol 5 Mg Tablet) 5 mg PO Q4H PRN PRN Reason: agitation Hydroxyzine HCl (Hydroxyzine Hcl 25 Mg Tablet) 25 mg PO TID PRN PRN Reason: Anxiety Last Admin: 11/16/21 11:14 Dose: 25 mg Documented by: Lisinopril (Lisinopril 40 Mg Tablet) 40 mg PO DAILY [facility]; Protocol Last Admin: 11/17/21 08:08 Dose: 40 mg Documented by: Loratadine (Loratadine 10 Mg Tablet) 10 mg PO DAILY [facility] Last Admin: 11/17/21 08:07 Dose: 10 mg Documented by: Lorazepam (Lorazepam 1 Mg Tablet) 2 mg PO Q4H PRN PRN Reason: agitation Magnesium Hydroxide (Milk Of Magnesia 30 Ml Oral.Susp) 30 ml PO DAILY PRN PRN Reason: Constipation Metoprolol Succinate (Metoprolol Succinate Er 100 Mg Tab.Er.24h) 100 mg PO DAILY [facility]; Protocol Last Admin: 11/17/21 08:07 Dose: 100 mg Documented by: Naproxen (Naproxen 500 Mg Tablet) 500 mg PO BID PRN PRN Reason: Pain, Mild (Pain Scale 1-3) Last Admin: 11/16/21 20:29 Dose: 500 mg Documented by: Nicotine Polacrilex (Nicotine Polacrilex 2 Mg Gum) 4 mg BUCCAL Q2H PRN PRN Reason: Nicotine Cravings Primidone (Primidone 50 Mg Tablet) 50 mg PO TID [facility] Last Admin: 11/17/21 08:08 Dose: 50 mg Documented by: Propranolol HCl (Propranolol Hcl 10 Mg Tablet) 10 mg PO TID [facility]; Protocol Quetiapine Fumarate (Quetiapine Fumarate 50 Mg Tablet) 50 mg PO TID [facility] Last Admin: 11/17/21 08:08 Dose: 50 mg Documented by: Quetiapine Fumarate (Quetiapine Fumarate 300 Mg Tablet) 300 mg PO BEDTIME [facility] Last Admin: 11/16/21 20:26 Dose: 300 mg Documented by: Tiotropium [place] (Tiotropium [place] 18 Mcg Cap.W.Dev) 1 puff INHALE RDAILY [facility] Last Admin: 11/17/21 09:34 Dose: 1 puff Documented by: Zolpidem Tartrate (Zolpidem Tartrate 5 Mg Tablet) 5 mg PO BEDTIME PRN PRN Reason: Insomnia Last Admin: 11/16/21 20:25 Dose: 5 mg Documented by: Allergies Allergies Allergy/AdvReac Type Severity Reaction Status Date / Time acetaminophen [From Tylenol] Allergy Shakiness Verified 09/26/21 21:06 ibuprofen [From Motrin] Allergy Abdominal Verified 09/26/21 21:06 Pain bee pollen [bee stings] AdvReac Severe Anaphylaxis Verified 09/26/21 21:06 Assessment & Plan Assessment & Plan (1) Chronic post-traumatic stress disorder (PTSD): Status: Acute Code(s): F43.12 - Post-traumatic stress disorder, chronic (2) Polysubstance abuse: Status: Acute Code(s): F19.10 - Other psychoactive substance abuse, uncomplicated (3) Hypertension: Status: Acute Code(s): I10 - Essential (primary) hypertension Plan Patient is a 55-year-old male with history of PTSD, anxiety and substance abuse, sober for several years who presents for suicide attempt in the face of homelessness. Patient was recently discharged M October 01. Patient reports SI has resolved. He wants to remain on current medication regimen. Patient feels that his anxiety quickness to become in despair is situational and if he had housing this would not be an issue. Draw Furnace Tender discussed medication regimen and how he is on several controlled substances which in the face of recent suicide attempt is concerning. Patient says this is the 1st time he has ever attempted suicide in his life. He also says that this current regimen has been helping him for years and until he was on these medications which includes clonazepam 1 mg q.i.d., primidone, gabapentin and Ambien, he was unable to function, feeling and anxious mess and agoraphobic. Patient's is other medication trials have not worked. Draw Furnace Tender acquiesced and understands that patient has been on these medications for years that abrupt discontinuation is likely more dysregulated Ng which patient at a h igher risk than otherwise. However conventional mortgage underwriter and patient agreed to try and reduce some of these sedating medications. Patient agrees to try propranolol for tremor since primidone does not seem to work. He also agrees to increase Seroquel at bedtime to see if he can get away with using less or no Ambien. 4/10 little better. Still struggles with sleep. No medication side effects. No SI PLAN: CV Q 15 minute checks Continue Seroquel 50mg TID Continue seroqeul to 300mg qhs (up from 200mg) to see if can help with insomnia and thus need less or no Ambien Continue Doxepine to 50mg qhs (up from 20mg) to see if he can help with insomnia and also to reduce anxiety so will need less clonazepam SCHEDUle propranolol 10 mg t.i.d. . for tremor since primidone does not seem to be helping much and is a barbiturate Continue Suboxone 2/0.5 mg q.i.d. p.r.n. for moderate to severe pain Ambien 5 mg p.r.n. for continued insomnia I spent minutes with the patient and/or on the patient floor today, greater than?50% of which was spent counseling/coordinating care. Patient educated on: diagnosis and medication risk/benefits Reason for contiued inpatient stay Substantial Risk for: rapid decompensation
[2021-11-17] MEDS: Propranolol HCL 10 MG TABLET PO ×3 (12:09→21:01)
[2021-11-17 14:56] VITALS: BP 121/81; PULSE 69
[2021-11-17] MEDS: hydrOXYzine HCL 25 MG TABLET PO ×2 (14:58→21:06)
[2021-11-17 18:00] VITALS: BP 103/70; PULSE 70; RESP 18; TEMP 36.3; O2SAT 97
[2021-11-17] MEDS: Doxepin HCl 25 MG CAPSULE 50 MG PO (20:59)
[2021-11-17] MEDS: QUEtiapine Fumarate 300 MG TABLET PO (21:04)
[2021-11-17] MEDS: NaPROXEN 500 MG TABLET PO (21:07)
[2021-11-17] MEDS: Zolpidem Tartrate 5 MG TABLET PO (22:05)
[2021-11-18] MEDS: clonazePAM 1 MG TABLET PO ×4 (01:37→20:04)
[2021-11-18] MEDS: Buprenorphine/Naloxone 2/0.5mg FILM 1 FILM SUBLINGUAL ×4 (01:38→20:04)
[2021-11-18] MEDS: hydrOXYzine HCL 25 MG TABLET PO ×2 (05:48→12:00)
[2021-11-18] MEDS: Cyclobenzaprine HCl 10 MG TABLET PO ×3 (05:49→20:04)
[2021-11-18 08:27] VITALS: BP 110/69; PULSE 65; TEMP 36.2; O2SAT 97
[2021-11-18] MEDS: QUEtiapine Fumarate 50 MG TABLET PO ×3 (08:32→20:04)
[2021-11-18] MEDS: Loratadine 10 MG TABLET PO (08:32)
[2021-11-18] MEDS: Gabapentin 400 MG CAPSULE 1200 MG PO ×3 (08:32→20:03)
[2021-11-18] MEDS: Primidone 50 MG TABLET PO ×3 (08:33→20:03)
[2021-11-18] MEDS: Propranolol HCL 10 MG TABLET PO ×3 (08:33→20:03)
[2021-11-18] MEDS: Metoprolol Succinate ER 100 MG TAB.ER.24H PO (08:33)
[2021-11-18] MEDS: lisinopriL 40 MG TABLET PO (08:33)
--- NOTE | 2021-11-18 12:35 | HO.PSYCHPN ---
Subjective Subjective Date of Service: 11/18/21 Reason For Visit: Disorganization Interim History: Patient reports that he is still anxious however depression remains resolved and no SI. Patient is still having trouble sleeping. He thinks that on increased dose of Seroquel Ambien 5 mg is probably enough however he wishes there could be an Ambien p.r.n. later on if needed. Patient is looking for a place to live and hopefully getting his social security check. Mental Status Exam Mental Status Exam Narrative: Pt is alert and oriented; behavior is cooperative; patient is not in distress; well groomed and with good hygiene, hair combed; mood is described as anxious and affect congruent; eye contact appropriate; Speech is normal rate, volume and prosody and not pressured; no psychomotor agitation/retardation present; thought process is organized and goal directed; Thought content is on medication management and dealing with homelessness; otherwise pertinent to relevant topics and without any delusional content, paranoid ideations or grandiosity; Denies any SI/HI; There is no evidence of perceptual disturbance. ?Patients insight and judgment are fair and adequate. Diagnostics Vital Signs (24Hr): Vital Signs - 24 hr 11/17/21 14:56 11/17/21 18:00 11/18/21 08:27 Temperature 97.4 F 97.1 F Pulse Rate 69 70 65 Respiratory Rate 18 Blood Pressure 121/81 103/70 110/69 Pulse Oximetry 97 97 BMI result Body Mass Index 26.6 Labs Results: 11/15/21 01:27 11/16/21 07:11 Medications Medications Current Medications Al Hydroxide/Mg Hydroxide (Magnesium Hydrox/Alum Hydrox 30 Ml Oral.Susp) 30 ml PO Q6H PRN PRN Reason: Heartburn/Nausea Albuterol Sulfate (Albuterol Sulfate 90 Mcg 8 Gm Inhaler) 1 puff INHALE QID PRN PRN Reason: wheezing Buprenorphine/Naloxone (Buprenorphine/Naloxone 2/0.5mg Film) 1 film SUBLINGUAL Q2H PRN PRN Reason: pain moderate to severe Clonazepam (Clonazepam 1 Mg Tablet) 1 mg PO Q4H PRN PRN Reason: Anxiety Cyclobenzaprine HCl (Cyclobenzaprine Hcl 10 Mg Tablet) 10 mg PO TID PRN PRN Reason: muscle cramps Last Admin: 11/18/21 05:49 Dose: 10 mg Documented by: Diphenhydramine HCl (Diphenhydramine Hcl 25 Mg Tablet) 50 mg PO Q4H PRN PRN Reason: agitation Doxepin HCl (Doxepin Hcl 25 Mg Capsule) 50 mg PO BEDTIME [facility] Last Admin: 11/17/21 20:59 Dose: 50 mg Documented by: Gabapentin (Gabapentin 400 Mg Capsule) 1,200 mg PO TID [facility] Last Admin: 11/18/21 08:32 Dose: 1,200 mg Documented by: Haloperidol (Haloperidol 5 Mg Tablet) 5 mg PO Q4H PRN PRN Reason: agitation Hydroxyzine HCl (Hydroxyzine Hcl 25 Mg Tablet) 25 mg PO TID PRN PRN Reason: Anxiety Last Admin: 11/18/21 12:00 Dose: 25 mg Documented by: Lisinopril (Lisinopril 40 Mg Tablet) 40 mg PO DAILY [facility]; Protocol Last Admin: 11/18/21 08:33 Dose: 40 mg Documented by: Loratadine (Loratadine 10 Mg Tablet) 10 mg PO DAILY [facility] Last Admin: 11/18/21 08:32 Dose: 10 mg Documented by: Lorazepam (Lorazepam 1 Mg Tablet) 2 mg PO Q4H PRN PRN Reason: agitation Magnesium Hydroxide (Milk Of Magnesia 30 Ml Oral.Susp) 30 ml PO DAILY PRN PRN Reason: Constipation Metoprolol Succinate (Metoprolol Succinate Er 100 Mg Tab.Er.24h) 100 mg PO DAILY [facility]; Protocol Last Admin: 11/18/21 08:33 Dose: 100 mg Documented by: Naproxen (Naproxen 500 Mg Tablet) 500 mg PO BID PRN PRN Reason: Pain, Mild (Pain Scale 1-3) Last Admin: 11/17/21 21:07 Dose: 500 mg Documented by: Nicotine Polacrilex (Nicotine Polacrilex 2 Mg Gum) 4 mg BUCCAL Q2H PRN PRN Reason: Nicotine Cravings Primidone (Primidone 50 Mg Tablet) 50 mg PO TID [facility] Last Admin: 11/18/21 08:33 Dose: 50 mg Documented by: Propranolol HCl (Propranolol Hcl 10 Mg Tablet) 10 mg PO TID [facility]; Protocol Last Admin: 11/18/21 08:33 Dose: 10 mg Documented by: Quetiapine Fumarate (Quetiapine Fumarate 50 Mg Tablet) 50 mg PO TID [facility] Last Admin: 11/18/21 08:32 Dose: 50 mg Documented by: Quetiapine Fumarate (Quetiapine Fumarate 300 Mg Tablet) 300 mg PO BEDTIME [facility] Last Admin: 11/17/21 21:04 Dose: 300 mg Documented by: Tiotropium [place] (Tiotropium [place] 18 Mcg Cap.W.Dev) 1 puff INHALE RDAILY [facility] Last Admin: 11/18/21 09:24 Dose: 1 puff Documented by: Zolpidem Tartrate (Zolpidem Tartrate 5 Mg Tablet) 5 mg PO BEDTIME [facility] Stop: 11/21/21 21:01 Allergies Allergies Allergy/AdvReac Type Severity Reaction Status Date / Time acetaminophen [From Tylenol] Allergy Shakiness Verified 09/26/21 21:06 ibuprofen [From Motrin] Allergy Abdominal Verified 09/26/21 21:06 Pain bee pollen [bee stings] AdvReac Severe Anaphylaxis Verified 09/26/21 21:06 Assessment & Plan Assessment & Plan (1) Chronic post-traumatic stress disorder (PTSD): Status: Acute Code(s): F43.12 - Post-traumatic stress disorder, chronic (2) Polysubstance abuse: Status: Acute Code(s): F19.10 - Other psychoactive substance abuse, uncomplicated (3) Hypertension: Status: Acute Code(s): I10 - Essential (primary) hypertension Plan Patient is a 55-year-old male with history of PTSD, anxiety and substance abuse, sober for several years who presents for suicide attempt in the face of homelessness. Patient was recently discharged M October 01. Patient reports SI has resolved. He wants to remain on current medication regimen. Patient feels that his anxiety quickness to become in despair is situational and if he had housing this would not be an issue. Lacquerer discussed medication regimen and how he is on several controlled substances which in the face of recent suicide attempt is concerning. Patient says this is the 1st time he has ever attempted suicide in his life. He also says that this current regimen has been helping him for years and until he was on these medications which includes clonazepam 1 mg q.i.d., primidone, gabapentin and Ambien, he was unable to function, feeling and anxious mess and agoraphobic. Patient's is other medication trials have not worked. Lacquerer acquiesced and understands that patient has been on these medications for years that abrupt discontinuation is likely more dysregulated Ng which patient at a higher risk than otherwise. However justowriter operator and patient agreed to try and reduce some of these sedating medications. Patient agrees to try propranolol for tremor since primidone does not seem to work. He also agrees to increase Seroquel at bedtime to see if he can get away with using less or no Ambien. 11/17 little better. Still struggles with sleep. No medication side effects. No SI 11/18 still struggling with sleep, still anxious and will increase doxepin. No SI PLAN: CV Q 15 minute checks Continue Seroquel 50mg TID Continue seroqeul to 300mg qhs (up from 200mg) to see if can help with insomnia and thus need less or no Ambien Increased to Doxepine to 75mg qhs (up from 20mg) to see if he can help with insomnia and also to reduce anxiety so will need less clonazepam SCHEDUled propranolol 10 mg t.i.d. . for tremor since primidone does not seem to be helping much and is a barbiturate Continue Suboxone 2/0.5 mg q2h p.r.n 4 doses max per day. for moderate to severe pain Ambien 5 mg qhs. for insomnia I spent minutes with the patient and/or on the patient floor today, greater than?50% of which was spent counseling/coordinating care. Patient educated on: medication risk/benefits Informed Consent: understands Reason for contiued inpatient stay Substantial Risk for: stable for discharge and rapid decompensation
[2021-11-18 20:00] VITALS: BP 112/75; PULSE 73; TEMP 36.3; O2SAT 96
[2021-11-18] MEDS: Doxepin HCl 25 MG CAPSULE 75 MG PO (20:03)
[2021-11-18] MEDS: QUEtiapine Fumarate 300 MG TABLET PO (20:04)
[2021-11-19] MEDS: Zolpidem Tartrate 5 MG TABLET PO (00:01)
[2021-11-19] MEDS: clonazePAM 1 MG TABLET PO ×5 (03:36→20:49)
[2021-11-19] MEDS: Cyclobenzaprine HCl 10 MG TABLET PO ×2 (03:36→14:35)
[2021-11-19] MEDS: hydrOXYzine HCL 25 MG TABLET PO ×2 (03:36→12:38)
[2021-11-19 08:05] VITALS: BP 128/78; PULSE 84; TEMP 37; O2SAT 98
[2021-11-19] MEDS: Primidone 50 MG TABLET PO ×3 (08:10→20:49)
[2021-11-19] MEDS: Gabapentin 400 MG CAPSULE 1200 MG PO ×3 (08:10→20:49)
[2021-11-19] MEDS: Propranolol HCL 10 MG TABLET PO ×3 (08:10→20:48)
[2021-11-19] MEDS: Loratadine 10 MG TABLET PO (08:11)
[2021-11-19] MEDS: Buprenorphine/Naloxone 2/0.5mg FILM 1 FILM SUBLINGUAL ×2 (08:11→12:39)
[2021-11-19] MEDS: QUEtiapine Fumarate 50 MG TABLET PO ×3 (08:11→20:48)
[2021-11-19] MEDS: Metoprolol Succinate ER 100 MG TAB.ER.24H PO (08:11)
[2021-11-19] MEDS: lisinopriL 40 MG TABLET PO (09:24)
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
[2021-11-19] MEDS: NaPROXEN 500 MG TABLET PO (14:35)
[2021-11-19] MEDS: Buprenorphine/Naloxone 4/1 mg FILM 1 FILM SUBLINGUAL ×3 (15:13→20:49)
[2021-11-19] MEDS: Primidone 50 MG TABLET 25 MG PO (20:48)
[2021-11-19] MEDS: QUEtiapine Fumarate 300 MG TABLET PO (20:49)
[2021-11-19] MEDS: Doxepin HCl 25 MG CAPSULE 100 MG PO (20:49)
[2021-11-19 21:00] VITALS: BP 116/90; PULSE 90
[2021-11-20] MEDS: clonazePAM 1 MG TABLET PO ×4 (04:35→20:18)
[2021-11-20] MEDS: Buprenorphine/Naloxone 4/1 mg FILM 1 FILM SUBLINGUAL ×4 (04:35→20:18)
[2021-11-20] MEDS: hydrOXYzine HCL 25 MG TABLET PO (04:35)
[2021-11-20 07:45] VITALS: BP 123/78; PULSE 72; TEMP 36.6; O2SAT 97
[2021-11-20] MEDS: Metoprolol Succinate ER 100 MG TAB.ER.24H PO (08:09)
[2021-11-20] MEDS: Primidone 50 MG TABLET 25 MG PO ×3 (08:09→20:15)
[2021-11-20] MEDS: Primidone 50 MG TABLET PO (08:09)
[2021-11-20] MEDS: Gabapentin 400 MG CAPSULE 1200 MG PO ×3 (08:09→20:14)
[2021-11-20] MEDS: lisinopriL 40 MG TABLET PO (08:09)
[2021-11-20] MEDS: Propranolol HCL 10 MG TABLET PO ×3 (08:09→20:14)
[2021-11-20] MEDS: Loratadine 10 MG TABLET PO (08:09)
[2021-11-20] MEDS: QUEtiapine Fumarate 50 MG TABLET PO ×3 (08:09→20:15)
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
[2021-11-20] MEDS: NaPROXEN 500 MG TABLET PO (13:17)
[2021-11-20] MEDS: Cyclobenzaprine HCl 10 MG TABLET PO ×2 (13:17→18:47)
--- NOTE | 2021-11-20 18:26 | P.PNPSI_ITS ---
Subjective Subjective Date of Service: 11/20/21 Reason For Visit: Disorganization Interim History: Good mood and anxiety has resolved. Patient thinks it is largely due to the fact that he finally got his social security money Diagnostics Vital Signs (24Hr): Vital Signs - 24 hr 11/19/21 21:00 11/20/21 07:45 Temperature 97.9 F Pulse Rate 90 72 Blood Pressure 116/90 H 123/78 Pulse Oximetry 97 BMI result Body Mass Index 26.6 Labs Results: 11/15/21 01:27 11/16/21 07:11 Medications Medications Current Medications Al Hydroxide/Mg Hydroxide (Magnesium Hydrox/Alum Hydrox 30 Ml Oral.Susp) 30 ml PO Q6H PRN PRN Reason: Heartburn/Nausea Albuterol Sulfate (Albuterol Sulfate 90 Mcg 8 Gm Inhaler) 1 puff INHALE QID PRN PRN Reason: wheezing Buprenorphine/Naloxone (Buprenorphine/Naloxone 4/1 Mg Film) 1 film SUBLINGUAL Q4H PRN PRN Reason: mod to severe pain Last Admin: 11/20/21 14:35 Dose: 1 film Documented by: Clonazepam (Clonazepam 1 Mg Tablet) 1 mg PO Q2H PRN PRN Reason: moderate to severe anxiety Last Admin: 11/20/21 13:17 Dose: 1 mg Documented by: Cyclobenzaprine HCl (Cyclobenzaprine Hcl 10 Mg Tablet) 10 mg PO TID PRN PRN Reason: muscle cramps Last Admin: 11/20/21 13:17 Dose: 10 mg Documented by: Doxepin HCl (Doxepin Hcl 25 Mg Capsule) 100 mg PO BEDTIME [facility] Last Admin: 11/19/21 20:49 Dose: 100 mg Documented by: Gabapentin (Gabapentin 400 Mg Capsule) 1,200 mg PO TID [facility] Last Admin: 11/20/21 14:35 Dose: 1,200 mg Documented by: Hydroxyzine HCl (Hydroxyzine Hcl 25 Mg Tablet) 25 mg PO TID PRN PRN Reason: Anxiety Last Admin: 11/20/21 04:35 Dose: 25 mg Documented by: Lisinopril (Lisinopril 40 Mg Tablet) 40 mg PO DAILY [facility]; Protocol Last Admin: 11/20/21 08:09 Dose: 40 mg Documented by: Loratadine (Loratadine 10 Mg Tablet) 10 mg PO DAILY [facility] Last Admin: 11/20/21 08:09 Dose: 10 mg Documented by: Magnesium Hydroxide (Milk Of Magnesia 30 Ml Oral.Susp) 30 ml PO DAILY PRN PRN Reason: Constipation Metoprolol Succinate (Metoprolol Succinate Er 100 Mg Tab.Er.24h) 100 mg PO DAILY [facility]; Protocol Last Admin: 11/20/21 08:09 Dose: 100 mg Documented by: Naproxen (Naproxen 500 Mg Tablet) 500 mg PO BID PRN PRN Reason: Pain, Mild (Pain Scale 1-3) Last Admin: 11/20/21 13:17 Dose: 500 mg Documented by: Nicotine Polacrilex (Nicotine Polacrilex 2 Mg Gum) 4 mg BUCCAL Q2H PRN PRN Reason: Nicotine Cravings Primidone (Primidone 50 Mg Tablet) 25 mg PO BID [facility] Stop: 11/20/21 23:00 Last Admin: 11/20/21 13:19 Dose: 25 mg Documented by: Primidone (Primidone 50 Mg Tablet) 25 mg PO QID [facility] Propranolol HCl (Propranolol Hcl 10 Mg Tablet) 10 mg PO TID [facility]; Protocol Last Admin: 11/20/21 14:35 Dose: 10 mg Documented by: Quetiapine Fumarate (Quetiapine Fumarate 50 Mg Tablet) 50 mg PO TID [facility] Last Admin: 11/20/21 14:35 Dose: 50 mg Documented by: Quetiapine Fumarate (Quetiapine Fumarate 300 Mg Tablet) 300 mg PO BEDTIME [facility] Last Admin: 11/19/21 20:49 Dose: 300 mg Documented by: Tiotropium [place] (Tiotropium [place] 18 Mcg Cap.W.Dev) 1 puff INHALE RDAILY [facility] Last Admin: 11/20/21 09:16 Dose: 1 puff Documented by: Zolpidem Tartrate (Zolpidem Tartrate 5 Mg Tablet) 5 mg PO BEDTIME PRN PRN Reason: Insomnia Stop: 11/21/21 21:01 Allergies Allergies Allergy/AdvReac Type Severity Reaction Status Date / Time acetaminophen [From Tylenol] Allergy Shakiness Verified 09/26/21 21:06 ibuprofen [From Motrin] Allergy Abdominal Verified 09/26/21 21:06 Pain bee pollen [bee stings] AdvReac Severe Anaphylaxis Verified 09/26/21 21:06 Assessment & Plan Assessment & Plan (1) Chronic post-traumatic stress disorder (PTSD): Status: Acute Code(s): F43.12 - Post-traumatic stress disorder, chronic (2) Polysubstance abuse: Status: Acute Code(s): F19.10 - Other psychoactive substance abuse, uncomplicated (3) Hypertension: Status: Acute Code(s): I10 - Essential (primary) hypertension Plan Patient is a 55-year-old male with history of PTSD, anxiety and substance abuse, sober for several years who presents for suicide attempt in the face of homelessness. Patient was recently discharged M October 01. Patient reports SI has resolved. He wants to remain on current medication regimen. Patient feels that his anxiety quickness to become in despair is situational and if he had housing this would not be an issue. Career Portals Teacher discussed medication regimen and how he is on several controlled substances which in the face of recent suicide attempt is concerning. Patient says this is the 1st time he has ever attempted suicide in his life. He also says that this current regimen has been helping him for years and until he was on these medications which includes clonazepam 1 mg q.i.d., primidone, gabapentin and Ambien, he was unable to function, feeling and anxious mess and agoraphobic. Patient's is other medication trials have not worked. Career Portals Teacher acquiesced and understands that patient has been on these medications for years that abrupt discontinuation is likely more dysregulated Ng which patient at a higher risk than otherwise. However commercial insurance underwriter and patient agreed to try and reduce some of these sedating medications. Patient agrees to try propranolol for tremor since primidone does not seem to work. He also agrees to increase Seroquel at bedtime to see if he can get away with using less or no Ambien. 4/10 little better. Still struggles with sleep. No medication side effects. No SI 11/18 still struggling with sleep, still anxious and will increase doxepin. No SI 11/19 stable, no SI, anxious about where he will live but resigned to push through it, knowing that it will not be for ever and that her get back on his feet. Patient is appropriate for discharge not in imminent risk of harm to self or others PLAN: CV Q 15 minute checks Continue Seroquel 50mg TID Continue seroqeul to 300mg qhs (up from 200mg) to see if can help with insomnia and thus need less or no Ambien Increased to Doxepine to 100mg qhs (up from 20mg) to see if he can help with insomnia and also to reduce anxiety so will need less clonazepam SCHEDUled propranolol 10 mg t.i.d. . for tremor since primidone does not seem to be helping much and is a barbiturate Taper down Primidone; discussed gentle taper of 25mg per week Continue Suboxone 4/1 mg q2h p.r.n 4 doses max per day. for moderate to severe pain Ambien 5 mg qhs. for insomnia I spent minutes with the patient and/or on the patient floor today, greater than?50% of which was spent counseling/coordinating care.
[2021-11-20] MEDS: QUEtiapine Fumarate 300 MG TABLET PO (20:14)
[2021-11-20] MEDS: Doxepin HCl 25 MG CAPSULE 100 MG PO (20:14)
[2021-11-20] MEDS: Zolpidem Tartrate 5 MG TABLET PO (20:18)
[2021-11-20 20:20] VITALS: BP 102/60; PULSE 76; TEMP 36.8; O2SAT 95
[2021-11-21] MEDS: Cyclobenzaprine HCl 10 MG TABLET PO ×2 (02:54→08:24)
[2021-11-21] MEDS: clonazePAM 1 MG TABLET PO ×2 (02:54→08:24)
[2021-11-21] MEDS: NaPROXEN 500 MG TABLET PO (02:54)
[2021-11-21] MEDS: Buprenorphine/Naloxone 4/1 mg FILM 1 FILM SUBLINGUAL ×2 (02:54→08:24)
[2021-11-21] MEDS: QUEtiapine Fumarate 50 MG TABLET PO (08:18)
[2021-11-21] MEDS: Gabapentin 400 MG CAPSULE 1200 MG PO (08:18)
[2021-11-21] MEDS: Loratadine 10 MG TABLET PO (08:18)
[2021-11-21] MEDS: Metoprolol Succinate ER 100 MG TAB.ER.24H PO (08:18)
[2021-11-21] MEDS: lisinopriL 40 MG TABLET PO (08:18)
[2021-11-21] MEDS: Propranolol HCL 10 MG TABLET PO (08:18)
[2021-11-21 08:20] VITALS: BP 117/74; PULSE 76
--- NOTE | 2021-11-21 09:04 | PM.PSYDC ---
DS: Providers Provider Date of Service: 11/21/21 Date of admission: 11/15/21 22:10 Date of discharge: 11/21/21 Primary care physician: Unknown Physician Attending physician on admission: Abdoul Dale Attending physician on discharge: Abdoul Dale DS: Diagnosis Discharge Diagnosis (1) Adjustment disorder with mixed disturbance of emotions and conduct in remission: Status: Acute (2) Chronic post-traumatic stress disorder (PTSD): Status: Acute (3) Polysubstance abuse: Status: Acute (4) Hypertension: Status: Acute DS: Medications Discharge Medications Home Medications: Previous Rx's Medication Instructions Recorded albuterol sulfate 90 mcg/actuation 1 puff PO QID PRN 30 Days #6.7 g 11/20/21 aerosol inhaler (ProAir HFA) buprenorphine 4 mg-naloxone 1 mg 1 film SUBLINGUAL Q4H PRN #0 ea 11/20/21 sublingual film (Suboxone) clonazepam 1 mg tablet 1 mg PO QID PRN 15 Days #60 tab 11/20/21 cyclobenzaprine 10 mg tablet 10 mg PO TID PRN 30 Days #90 tab 11/20/21 doxepin 100 mg capsule 100 mg PO BEDTIME 30 Days #30 cap 11/20/21 gabapentin 800 mg tablet 1,200 mg PO TID 30 Days #135 tab 11/20/21 hydroxyzine HCl 25 mg tablet 25 mg PO TID PRN 30 Days #90 tab 11/20/21 lisinopril 40 mg tablet 40 mg PO DAILY 30 Days #30 tab 11/20/21 loratadine 10 mg tablet 10 mg PO DAILY 30 Days #30 tab 11/20/21 metoprolol succinate 100 mg 100 mg PO DAILY 30 Days #30 tab 11/20/21 tablet,extended release 24 hr naproxen 500 mg tablet 500 mg PO BID PRN 30 Days #60 tab 11/20/21 primidone 50 mg tablet 50 mg PO BID 30 Days #60 tab 11/20/21 propranolol 10 mg tablet 10 mg PO TID 30 Days #90 tab 11/20/21 quetiapine 300 mg tablet 300 mg PO BEDTIME 30 Days #30 tab 11/20/21 quetiapine 50 mg tablet 50 mg PO TID 30 Days #90 tab 11/20/21 umeclidinium 62.5 mcg/actuation 1 inh PO DAILY 30 Days #30 ea 11/20/21 blister powder for inhalation (Incruse Ellipta) zolpidem 5 mg tablet 5 mg PO BEDTIME PRN 30 Days #30 tab 11/20/21 Mental Status Exam Mental Status Exam Narrative: Pt is alert and oriented; behavior is cooperative; patient is not in distress; well groomed and with good hygiene, hair combed; mood is described as good and affect congruent; eye contact appropriate; Speech is normal rate, volume and prosody and not pressured; no psychomotor agitation/retardation present; thought process is organized and goal directed; Thought content is on discharge and dealing with homelessness; otherwise pertinent to relevant topics and without any delusional content, paranoid ideations or grandiosity; Denies any SI/HI; There is no evidence of perceptual disturbance. ?Patients insight and judgment are fair and adequate. Data Data Completed and Pending Completed studies during hospitalization [Text1]: 11/15/21 11/15/21 11/15/21 00:47 01:27 01:27 WBC 11.3 H RBC 4.45 L Hgb 13.7 L Hct 41.4 L MCV 93.0 MCH 30.8 MCHC 33.1 RDW 13.2 Plt Count 299 MPV 10.6 Immature Gran % (Auto) 0.4 Neut % (Auto) 83.2 H Lymph % (Auto) 11.6 L [place] % (Auto) 4.4 Eos % (Auto) 0.1 Baso % (Auto) 0.3 Lymph # (Auto) 1.3 [place] # (Auto) 0.5 Eos # (Auto) 0.0 Baso # (Auto) 0.0 Abs Immat Gran (auto) 0.05 H Absolute Neuts (auto) 9.4 H Absolute Nucleated RBC 0.000 Nucleated RBC % (auto) 0.0 Sodium 138 Potassium 3.5 Chloride 99 Carbon Dioxide 25 Anion Gap 18 BUN 10 D Creatinine 1.08 Estim Creat Clear Calc 73.1 Estimated GFR > 60 Random Glucose 108 Fasting Glucose Estimat Average Glucose Hemoglobin A1c % Calcium 10.2 Magnesium 1.8 Total Bilirubin 0.8 Direct Bilirubin 0.3 AST 16 ALT 7 Alkaline Phosphatase 75 Ammonia Total Protein 8.6 H Albumin 4.5 Triglycerides Cholesterol LDL Cholesterol, Calc HDL Cholesterol TSH Urine Opiates Screen Urine Fentanyl Screen Ur Barbiturates Screen Ur Phencyclidine Scrn Ur Amphetamines Screen U Benzodiazepines Scrn Urine Cocaine Screen U Marijuana (THC) Screen Ethyl Alcohol COVID-19 ([facility]) Negative COVID-19 Clin Com See Note 11/15/21 11/15/21 11/15/21 01:27 01:27 02:05 WBC RBC Hgb Hct MCV MCH MCHC RDW Plt Count MPV Immature Gran % (Auto) Neut % (Auto) Lymph % (Auto) [place] % (Auto) Eos % (Auto) Baso % (Auto) Lymph # (Auto) [place] # (Auto) Eos # (Auto) Baso # (Auto) Abs Immat Gran (auto) Absolute Neuts (auto) Absolute Nucleated RBC Nucleated RBC % (auto) Sodium Potassium Chloride Carbon Dioxide Anion Gap BUN Creatinine Estim Creat Clear Calc Estimated GFR Random Glucose Fasting Glucose Estimat Average Glucose Hemoglobin A1c % Calcium Magnesium Total Bilirubin Direct Bilirubin AST ALT Alkaline Phosphatase Ammonia 27 Total Protein Albumin Triglycerides Cholesterol LDL Cholesterol, Calc HDL Cholesterol TSH 1.68 Urine Opiates Screen Urine Fentanyl Screen Ur Barbiturates Screen Ur Phencyclidine Scrn Ur Amphetamines Screen U Benzodiazepines Scrn Urine Cocaine Screen U Marijuana (THC) Screen Ethyl Alcohol < 10 COVID-19 ([facility]) COVID-19 BriefMe 11/15/21 11/16/21 11/16/21 03:46 07:11 07:11 WBC RBC Hgb Hct MCV MCH MCHC RDW Plt Count MPV Immature Gran % (Auto) Neut % (Auto) Lymph % (Auto) [place] % (Auto) Eos % (Auto) Baso % (Auto) Lymph # (Auto) [place] # (Auto) Eos # (Auto) Baso # (Auto) Abs Immat Gran (auto) Absolute Neuts (auto) Absolute Nucleated RBC Nucleated RBC % (auto) Sodium 138 Potassium 3.6 Chloride 102 Carbon Dioxide 26 Anion Gap 14 BUN 15 Creatinine 0.95 Estim Creat Clear Calc 83.1 Estimated GFR > 60 Random Glucose Fasting Glucose 103 H Estimat Average Glucose 82 Hemoglobin A1c % 4.5 Calcium 10.1 Magnesium Total Bilirubin 0.7 Direct Bilirubin AST 13 ALT 6 Alkaline Phosphatase 62 Ammonia Total Protein 7.1 Albumin 3.8 Triglycerides 87 Cholesterol 224 LDL Cholesterol, Calc 160 HDL Cholesterol 47 TSH Urine Opiates Screen Not Detected Urine Fentanyl Screen POSITIVE H Ur Barbiturates Screen POSITIVE H Ur Phencyclidine Scrn Not Detected Ur Amphetamines Screen Not Detected U Benzodiazepines Scrn Not Detected Urine Cocaine Screen POSITIVE H U Marijuana (THC) Screen Not Detected Ethyl Alcohol COVID-19 ([facility]) COVID-19 Clin Com DS: Summary Hospital Course Hospital Course: Patient is a 55-year-old male with history of PTSD, anxiety and substance abuse, sober for several years who presents for suicide attempt in the face of homelessness.? Patient was recently discharged M October 01. Patient reports SI has resolved.? He wants to remain on current medication regimen.? Patient feels that his anxiety quickness to become in despair is situational and if he had housing this would not be an issue.? On admission, SI fully resolved however patient was anxious. Radio Control Crane Operator discussed medication regimen and how he is on several controlled substances which in the face of recent suicide attempt is concerning.? Patient says this is the 1st time he has ever attempted suicide in his life.? He also says that this current regimen has been helping him for years and until he was on these medications which includes clonazepam 1 mg q.i.d., primidone, gabapentin and Ambien, he was unable to function, feeling and anxious mess and agoraphobic.? Patient's is other medication trials have not worked.? Radio Control Crane Operator acquiesced and understands that patient has been on these medications for years that abrupt discontinuation is likely more dysregulated Ng which patient at a higher risk than otherwise.? However newswriter and patient agreed to try and reduce some of these sedating medications.? Patient agrees to try propranolol for tremor since primidone does not seem to work.? He also agrees to increase Seroquel at bedtime to see if he can get away with using less or no Ambien. Over the following days patient's mood improved and anxiety lessened. He had struggles sleeping however he eventually was able to sleep on increased Seroquel bedtime dose and Ambien 5 mg instead of his normal 10 mg. Patient also found that propranolol was helpful for the tremor and so primidone started to be tapered down. Patient has chronic pain and so Suboxone was started as a p.r.n. to good effect; patient also has history of prescription pain medicine abuse and Suboxone offers help in staying sober as patient deals with chronic pain. Doxepin was also increased to help lower anxiety and was well tolerated. Patient was appropriate with peers and staff throughout his stay in the unit. He did not attend group much but was forthcoming during 1 on 1 sessions. He demonstrated good behavioral and impulse control throughout his time in the unit. Patient was able to get his social security money and plan to go to a homeless snf while he looked for more permanent place to stay. Patient was future oriented and optimistic on discharge. He was in a good mood without any SI. [place] like the medications were working well and want to continue with them. He was not in imminent risk of harm to self or others and appropriate for discharge and to continue treatment in the outpatient community. Patient was discharged from his outpatient clinic since he had no shows, however this was during the time when he was hospitalized 1st at [facility] and then at [facility] for an intestinal infection. Radio Control Crane Operator called his [facility] clinic and informed them of the reason he had missed appointments and supervisor rework there said she would talk to the clinician's and patient about it. Time spent discussing smoking cessation with patient: 3 to 10 minutes (non-smoker) Status at Discharge Functional status at discharge: independent ambulation Overall status at discharge: patient is back to baseline Time Spent with Patient Time attestation: Total time spent providing and/or coordinating discharge services: Time spent: Greater than 30 minutes Discharge Plan Discharge Patient Disposition: [facility]pc Discharge Diagnosis: adjustment disorder with disturbance of mood and conduct Referrals: Therapy Intake: Marianna Alvares [Other] - 11/27/21 1:00 pm (This is an in-person appointment. You must attend the therapy intake appointment to attend the follow-up psychiatric med appointment ) Psychiatric Med Evaluation: Dr. Guido [Other] - 12/05/21 3:00 pm (This is an in-person appointment ) Suboxone: Yael Gardner NP [Other] - 11/21/21 11:15 am (This is an in-office appointment ) Physician,Unknown J [Primary Care Provider] - 1 Week Discharge Medications: New cyclobenzaprine 10 mg Tablet 10 mg PO TID PRN (Reason: muscle cramps) 30 Days Qty: 90 0RF propranolol 10 mg Tablet 10 mg PO TID 30 Days Qty: 90 0RF Protocol: Hold for SBP/HR < HOLD for SBP < : 90 HOLD for HR < : 60 doxepin 100 mg capsule 100 mg PO BEDTIME 30 Days Qty: 30 0RF primidone 50 mg Tablet 50 mg PO BID 30 Days Qty: 60 0RF buprenorphine-naloxone [Suboxone] 4-1 mg Film 1 film sublingual Q4H PRN (Reason: mod to severe pain) Qty: 0 0RF quetiapine 300 mg Tablet 300 mg PO BEDTIME 30 Days Qty: 30 0RF zolpidem 5 mg Tablet 5 mg PO BEDTIME PRN (Reason: Insomnia) 30 Days Qty: 30 0RF Continued hydroxyzine HCl 25 mg Tablet 25 mg PO TID PRN (Reason: Anxiety) 30 Days Qty: 90 0RF albuterol sulfate [ProAir HFA] 90 mcg/actuation HFA aerosol inhaler 1 puff PO QID PRN (Reason: wheezing) 30 Days Qty: 6.7 0RF Changed metoprolol succinate 100 mg tablet extended release 24 hr 100 mg PO DAILY 30 Days Qty: 30 0RF clonazepam 1 mg tablet 1 mg PO QID PRN (Reason: Anxiety) 15 Days Qty: 60 1RF gabapentin 800 mg tablet 1,200 mg PO TID 30 Days Qty: 135 0RF lisinopril 40 mg tablet 40 mg PO DAILY 30 Days Qty: 30 0RF loratadine 10 mg tablet 10 mg PO DAILY 30 Days Qty: 30 0RF naproxen 500 mg tablet 500 mg PO BID PRN (Reason: pain) 30 Days Qty: 60 0RF quetiapine 50 mg tablet 50 mg PO TID 30 Days Qty: 90 0RF Incruse Ellipta 62.5 mcg/actuation blister with device 1 inh PO DAILY 30 Days Qty: 30 0RF Discontinued primidone 50 mg tablet 1 tab PO TID 0RF zolpidem 10 mg tablet 1 tab PO BEDTIME 0RF doxepin 10 mg capsule 2 cap PO BEDTIME 0RF methadone [Methadose] 10 mg/mL Concentrate 165 mg PO DAILY Qty: 0 0RF Discharge Orders: Discharge Order (Routine); Ordered 11/21/21 Ordered By: Abdoul Dale Diet: regular diet Activity on Discharge: As tolerated Stand Alone Forms: Patient Portal Discharge page Care Plan Goals: Maintain mood and safe behaviors Take medications as prescribed Continue to pursue sobriety Practice coping skills Continue with outpatient providers and reach out to them as needed Health Concerns: Mood stability and behaviors Sobriety Chronic pain Hyptension Plan of Treatment: Follow up with your PCP, psychiatric provider and other outpatient providers regarding above concerns Take medications as prescribed Assessment: Risk assessment at time of discharge:? Patient was interviewed prior to discharge and found to be fully oriented and without any SI or HI. Patient has insight and demonstrates good judgment in terms of wanting to pursue treatment. Patient is not in imminent risk of harm to self or others and has a safety plan that includes presenting to the closest ER or calling 911 if feeling unsafe.? Patient has been observed closely by nursing and unit staff throughout admission; patient has not engaged in any behaviors that suggest dangerousness to self or others and has demonstrated appropriate behaviors and impulse control
== END 2021-11-21 11:00 | disposition home or self-care (01) | DRG 755 ==
LOC: HO.ED 00:48 → HO.PM5 22:18
PROVIDERS: Admitting Provider Psychiatry & Neurology Psychiatry; Emergency Provider Emergency Medicine; Visit Provider Psychiatry & Neurology Psychiatry
DX: F43.25 Adjustment disorder with mixed disturbance of emotions and conduct (principal); F19.10 Other psychoactive substance abuse, uncomplicated; F43.12 Post-traumatic stress disorder, chronic; I10 Essential (primary) hypertension; Z20.822 Contact with and (suspected) exposure to COVID-19; Z23 Encounter for immunization; Z59.02 Unsheltered homelessness; Z88.6 Allergy status to analgesic agent; Z91.51 Personal history of suicidal behavior; Z79.899 Other long term (current) drug therapy
CPT/HCPCS: 36415; 80048; 80053; 80061; 80076; 80307; 82077; 82140; 83036; 83735; 84443; 85025; 87635; 90686; 93005; 99285

== ENCOUNTER → 2021-11-21 11:07 | Outpatient (BNVA) | payer OTHER, SELFPAY | PROVIDERS: Visit Provider Nurse Practitioner Psychiatric/Mental Health | DX: Z51.81 Encounter for therapeutic drug level monitoring (principal); F11.20 Opioid dependence, uncomplicated | CPT/HCPCS: 80305; 99212 ==

== ENCOUNTER → 2021-11-28 10:47 | Outpatient (BNVA) | payer OTHER, SELFPAY | PROVIDERS: Visit Provider Nurse Practitioner Psychiatric/Mental Health | DX: Z51.81 Encounter for therapeutic drug level monitoring (principal); F11.20 Opioid dependence, uncomplicated | CPT/HCPCS: 80305; 99211 ==

== ENCOUNTER → 2021-12-05 10:40 | Outpatient (BNVA) | payer OTHER, SELFPAY | PROVIDERS: Visit Provider Nurse Practitioner Psychiatric/Mental Health | DX: Z51.81 Encounter for therapeutic drug level monitoring (principal); F11.20 Opioid dependence, uncomplicated | CPT/HCPCS: 80305; 99211 ==

== ENCOUNTER → 2021-12-12 10:43 | Outpatient (BNVA) | payer OTHER, SELFPAY | PROVIDERS: Visit Provider Nurse Practitioner Psychiatric/Mental Health | DX: Z51.81 Encounter for therapeutic drug level monitoring (principal); F11.20 Opioid dependence, uncomplicated | CPT/HCPCS: 80305; 99212 ==

== ENCOUNTER → 2022-01-02 10:19 | Outpatient (BNVA) | payer OTHER, SELFPAY | PROVIDERS: Visit Provider Nurse Practitioner Psychiatric/Mental Health | DX: Z51.81 Encounter for therapeutic drug level monitoring (principal); F11.20 Opioid dependence, uncomplicated | CPT/HCPCS: 80305; 99211 ==

== ENCOUNTER → 2022-01-09 10:41 | Outpatient (BNVA) | payer OTHER, SELFPAY | PROVIDERS: Visit Provider Nurse Practitioner Psychiatric/Mental Health | DX: Z51.81 Encounter for therapeutic drug level monitoring (principal); F11.20 Opioid dependence, uncomplicated | CPT/HCPCS: 80305; 99211 ==

== ENCOUNTER → 2022-01-23 10:14 | Outpatient (BNVA) | payer OTHER, SELFPAY | PROVIDERS: Visit Provider Nurse Practitioner Psychiatric/Mental Health | DX: Z51.81 Encounter for therapeutic drug level monitoring (principal); F11.20 Opioid dependence, uncomplicated | CPT/HCPCS: 80305; 99211 ==

== ENCOUNTER → 2022-02-06 13:20 | Outpatient (BNVA) | payer OTHER, SELFPAY | PROVIDERS: PCP Nurse Practitioner Family; Visit Provider Nurse Practitioner Psychiatric/Mental Health | DX: F11.20 Opioid dependence, uncomplicated (principal) | CPT/HCPCS: 80305; 99212 ==

== ENCOUNTER 2023-10-29 12:26 | Outpatient (REF) | payer OTHER, SELFPAY ==
--- NOTE | ~2023-10-29 | XR_ITS ---
EXAMINATION: XR CHEST CLINICAL INFORMATION: Cough, bloody phlegm. COMPARISON: None available. TECHNIQUE: 2 views of the chest were obtained. FINDINGS: S-shaped thoracolumbar scoliosis. Degenerative changes in the thoracic spine. Superior and inferior endplate concavities with anterior loss of height of several [id number] thoracic vertebral bodies of indeterminate age. Lung volumes are low. There is no gross pneumothorax. There is asymmetric volume loss in the left hemithorax with shift of mediastinal structures to the left. Left costophrenic angle blunting and left basilar opacity obscuring the cardiac apex. Cardiac silhouette appears borderline enlarged. Deformities along the posterior aspects of multiple left lower ribs may represent prior rib fractures. XR/XR chest 2V IMPRESSION: 1. Asymmetric volume loss in the left hemithorax with shift of mediastinal structures to the left. Left costophrenic angle blunting and left basilar opacity obscuring the cardiac apex. Correlation with clinical exam and history recommended to determine further management. Differential considerations include an inflammatory/infectious process, posttreatment changes, atelectasis/scar with possible small left pleural effusion/pleural thickening. CT scan of the chest could be considered for further evaluation. 2. Superior and inferior endplate concavities with anterior loss of height of several mid to lower thoracic vertebral bodies of indeterminate age. This study was presented today 11/04/2023 for interpretation. PSA staff will provide results to referring provider at this time.
[2023-10-29 14:27] LABS: Basophils Percent Auto 0.3 % (0-2); Eosinophils Absolute Auto 0.3 X10*3/uL (0.0-0.4); Hematocrit 35.1 % (42.0-52.0); Hemoglobin 11.7 g/dl (14.0-18.0); Imm Gran Pct Auto 3.2 % (0.0-0.4); Lymphocytes Absolute Auto 2.2 X10*3/uL (1.2-4.9); MANUAL DIFF FLAG SCAN; Mean Corpuscular HGB Conc 33.3 g/dl (31.0-36.0); Mean Corpuscular Hemoglobin 30.5 pg (27.0-33.0); Mean Corpuscular Volume 91.4 fL (80.0-98.0); Mean Platelet Volume 10.1 fL (9.4-12.4); Monocytes Absolute Auto 1.5 X10*3/uL (0.1-1.2); Monocytes Percent Auto 9.7 % (2-11); Neutrophils Absolute Auto 11.3 x10*3/uL (2.0-8.3); Neutrophils Percent Auto 70.8 % (45-73); Platelet Count 326 X10*3/uL (160-400); Red Blood Count 3.84 X10*6/uL (4.60-5.80); Red Cell Distribution Width 13.6 % (11.0-16.0); SCAN SMEAR FLAG 1; White Blood Count 15.9 X10*3/uL (4.8-10.8)
[2023-10-29 14:44] LABS: SLIDE REVIEW VERIFIED
[2023-10-29 15:50] LABS: Alanine Aminotransferase 13 U/L (0-40); Alkaline Phosphatase 101 U/L (39-117); Anion Gap 17 (12-20); Aspartate Amino Transferase 14 U/L (5-37); Bilirubin Total 0.4 mg/dL (0.0-1.0); Blood Urea Nitrogen 26 mg/dL (9-16); Calcium 9.9 mg/dL (8.4-10.2); Carbon Dioxide 27 mmol/L (22-29); Chloride 99 mmol/L (96-108); Cholesterol 161 mg/dL (<200); Estimated Glomerular Filt Rate 41; Glucose Random 91 mg/dL (60-115); HDL Cholesterol 31 mg/dL (>40); LDL Cholesterol Calculated 111 mg/dL (<100); Potassium 3.8 mmol/L (3.3-5.1); Sodium 139 mmol/L (135-145); Total Protein 7.4 g/dL (6.5-8.0); Triglycerides 97 mg/dL (<150)
[2023-10-29 16:08] LABS: Prostate Specific Antigen 0.24 ng/mL (<0.05-4.0)
== END 2023-10-29 12:27 | disposition home or self-care (01) ==
LOC: HO.XRAY 12:26
PROVIDERS: PCP Internal Medicine; Visit Provider Internal Medicine
DX: Z00.01 Encounter for general adult medical examination with abnormal findings (principal); Z12.5 Encounter for screening for malignant neoplasm of prostate; R09.02 Hypoxemia; J45.40 Moderate persistent asthma, uncomplicated; I10 Essential (primary) hypertension; F43.12 Post-traumatic stress disorder, chronic; Z86.010 Personal history of colon polyps
CPT/HCPCS: 36415; 71046; 80053; 80061; 84153; 85025

== ENCOUNTER 2023-11-10 13:29 | Outpatient (AMB) | payer OTHER, SELFPAY ==
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
[2023-11-10 13:33] VITALS: BP 146/78; PULSE 67; O2SAT 97; BMI 26.9
[2023-11-10 14:36] VITALS: PULSE 74; O2SAT 96
== END 2023-11-10 14:17 | disposition home or self-care (01) ==
PROVIDERS: PCP Internal Medicine; Referring Provider Internal Medicine; Visit Provider Nurse Practitioner Family
DX: J44.9 Chronic obstructive pulmonary disease, unspecified (principal); R06.00 Dyspnea, unspecified; R93.89 Abnormal findings on diagnostic imaging of other specified body structures
CPT/HCPCS: 94618; 99204

== ENCOUNTER → 2023-11-10 13:29 | Outpatient (BNVA) | payer OTHER, SELFPAY | PROVIDERS: PCP Internal Medicine; Referring Provider Internal Medicine; Visit Provider Nurse Practitioner Family | DX: J44.9 Chronic obstructive pulmonary disease, unspecified (principal); R06.00 Dyspnea, unspecified; R93.89 Abnormal findings on diagnostic imaging of other specified body structures; Z91.09 Other allergy status, other than to drugs and biological substances | CPT/HCPCS: 94618; 99202 ==

== ENCOUNTER 2023-11-18 12:46 | Outpatient (REF) | payer OTHER, SELFPAY ==
[2023-11-18 08:49] VITALS: PULSE 67; RESP 16; O2SAT 94
[2023-11-18 13:38] LABS: MANUAL DIFF FLAG NO
[2023-11-18 14:05] LABS: Basophils Absolute Auto 0.1 X10*3/uL (0.0-0.2); Basophils Percent Auto 0.7 % (0-2); Eosinophils Absolute Auto 0.4 X10*3/uL (0.0-0.4); Eosinophils Percent Auto 6.4 % (0-4); Hematocrit 36.5 % (42.0-52.0); Hemoglobin 12.2 g/dl (14.0-18.0); Imm Gran Abs Auto 0.03 X10*3/uL (0.00-0.03); Imm Gran Pct Auto 0.4 % (0.0-0.4); Lymphocytes Absolute Auto 1.9 X10*3/uL (1.2-4.9); Mean Corpuscular HGB Conc 33.4 g/dl (31.0-36.0); Mean Corpuscular Hemoglobin 30.3 pg (27.0-33.0); Mean Corpuscular Volume 90.8 fL (80.0-98.0); Mean Platelet Volume 10.7 fL (9.4-12.4); Monocytes Absolute Auto 0.6 X10*3/uL (0.1-1.2); Monocytes Percent Auto 8.9 % (2-11); Neutrophils Absolute Auto 3.7 x10*3/uL (2.0-8.3); Neutrophils Percent Auto 55.6 % (45-73); Platelet Count 217 X10*3/uL (160-400); Red Blood Count 4.02 X10*6/uL (4.60-5.80); Red Cell Distribution Width 13.8 % (11.0-16.0); White Blood Count 6.7 X10*3/uL (4.8-10.8)
--- NOTE | 2023-11-18 14:17 | PFT_ITS ---
Flows: FEV1: 90 % of predicted at 2.93 L FVC: 95 % of predicted at 3.91 L FEV1/FVC: 75 % Bronchodilator response: Absent Volumes: Total lung capacity: 96 % of predicted at 6.02 L Residual volume: 107 % of predicted at 1.97 L Slow vital capacity: 90 % of predicted at 4.06 L Expiratory reserve volume: 144 % of predicted at 1.62 L Diffusion capacity: Normal Impression: No obstructive or restrictive ventilatory defect. No bronchodilator response. Normal pulmonary function test. MTDD
[2023-11-19 13:48] LABS: Class Alternaria alternata 0; Class Aspergillus fumigatus 0; Class Bermuda Grass 0; Class Birch 0; Class Cat Dander 2; Class Cladosporium herbarum 0; Class Cockroach 0; Class Common Ragweed 0; Class Cottonwood 0; Class Derm. pterony 2; Class Dermatophagoides farinae 2; Class Dog Dander 0/1; Class Elm 0; Class Maple Box Elder 0; Class Mountain Cedar 0; Class Mouse Urine Protein 0; Class Mugwort 0; Class Oak 0; Class Penicillium crysogenum 0; Class Rough Pigweed 0; Class Sheep Sorrel 0; Class Sycamore 0; Class Timothy Grass 0; Class Walnut Tree 0; Class White Ash 0; Class White Mulberry 0; D001 IgE D pteronyssinus 2.74 kU/L; D002 - IgE D farinae 1.77 kU/L; E001 - IgE Cat Dander 0.75 kU/L; E005 - IgE Dog Dander 0.14 kU/L; E072-IgE Mouse Urine <0.10 kU/L; G002 IgE Bermuda Grass <0.10 kU/L; G006 - IgE Timothy Grass <0.10 kU/L; I006-IgE Cockroach, German <0.10 kU/L; Immunoglobulin E 42 kU/L (<OR=114); M001 IgE Penicillium chrysogen <0.10 kU/L; M002 - IgE Cladosporium herbar <0.10 kU/L; M003 - IgE Aspergillus fumigat <0.10 kU/L; M006 - IgE Alternaria alternat <0.10 kU/L; T001 IgE Maple/Box Elder <0.10 kU/L; T003 IgE Common Silver Birch <0.10 kU/L; T006 - IgE Cedar, Mountain <0.10 kU/L; T007 - IgE Oak, White <0.10 kU/L; T008 IgE Elm, American <0.10 kU/L; T010 - IgE Walnut <0.10 kU/L; T011 - IgE Maple Leaf Sycamore <0.10 kU/L; T014 - IgE Cottonwood <0.10 kU/L; T015 - IgE Ash, White <0.10 kU/L; T070 - IgE White Mulberry <0.10 kU/L; W001 - IgE Ragweed, Short <0.10 kU/L; W006 - IgE Mugwort <0.10 kU/L; W014 IgE Pigweed, Common <0.10 kU/L; W018 IgE Sheep Sorrel <0.10 kU/L
== END 2023-11-18 12:47 | disposition home or self-care (01) ==
LOC: HO.RESP 12:46
PROVIDERS: PCP Internal Medicine; Visit Provider Nurse Practitioner Family
DX: J44.9 Chronic obstructive pulmonary disease, unspecified (principal); R06.00 Dyspnea, unspecified; Z91.09 Other allergy status, other than to drugs and biological substances
CPT/HCPCS: 36415; 82785; 85025; 86003; 94010; 94640; 94727; 94729

== ENCOUNTER → 2023-11-18 14:17 | Outpatient (BNV) | payer OTHER, SELFPAY | PROVIDERS: PCP Internal Medicine; Visit Provider Internal Medicine Pulmonary Disease | DX: J44.9 Chronic obstructive pulmonary disease, unspecified (principal) | CPT/HCPCS: 94060; 94727; 94729 ==

== ENCOUNTER 2023-11-26 11:42 | Outpatient (REF) | payer OTHER, SELFPAY ==
[2023-11-26 14:03] LABS: Creatinine Urine 55.92 mg/dL; Total Protein Urine Random < 7 mg/dL (<12)
== END 2023-11-26 11:43 | disposition home or self-care (01) ==
LOC: HO.10HDLNP 11:42
PROVIDERS: Visit Provider Internal Medicine
DX: I12.9 Hypertensive chronic kidney disease with stage 1 through stage 4 chronic kidney disease, or unspecified chronic kidney disease (principal); J44.9 Chronic obstructive pulmonary disease, unspecified; R60.0 Localized edema; N18.9 Chronic kidney disease, unspecified
CPT/HCPCS: 82570; 84156

== ENCOUNTER → 2023-12-01 13:53 | Outpatient (BNV) | payer OTHER, SELFPAY | PROVIDERS: PCP Internal Medicine; Visit Provider Internal Medicine Cardiovascular Disease | DX: R06.00 Dyspnea, unspecified (principal) | CPT/HCPCS: 93306; 93356 ==

== ENCOUNTER → 2023-12-01 13:53 | Outpatient (REF) | payer OTHER, SELFPAY ==
--- NOTE | 2023-12-01 13:53 | CA_ITS ---
Transthoracic Echocardiogram Patient (Last, First, Middle): Chalino Santos M Gender: Male Date of : 1965 Age: 57 Procedure Date: 12/01/2023 Procedure Type: Transthoracic Echocardiogram Location: OP Height: 167.64 cm Weight: 81.65 kg BSA: 1.91 m2 Heart Rate: bpm BP: 104 / 60 mmHg Seasonal Driver: MAGALI Referring MD: Reema Sears GROUP EXERCISE MANAGER Associate Programmer: Jorge Lambert MD Symptoms: R06.00 - Dyspnea, unspecified Study Quality: Adequate ECG Rhythm: Sinus Conclusions: - 1. Normal LV systolic function with LVEF of 65-70% 2. Dilated right-sided chambers with normal RV systolic function 3. Moderately dilated left atrium 4. Normal cardiac valvular Dopplers 5. Upper limits of normal RV systolic pressure 6. Mildly dilated ascending aorta at 3.7 cm 7. No gross pericardial effusion Findings Left Ventricle Normal left ventricular size, thickness, and systolic function. The visually estimated ejection fraction is between 65-70%. Spectral Doppler is indicative of a normal filling pattern. Peak GLS is -21.3%, within normal limits. Right Ventricle Mildly increased right ventricular cavity size. There is normal right ventricular systolic function. Atria The left atrium is moderately dilated. Interatrial shunt cannot be excluded. The right atrium is mildly dilated. Aortic Valve Normal aortic valve structure and function. There is no aortic valve stenosis. There is no aortic valve regurgitation. Mitral Valve Normal mitral valve structure and function. There is trace mitral valve regurgitation. There is no mitral valve stenosis. Pulmonic Valve The pulmonic valve is normal. There is trace pulmonic valve regurgitation. Tricuspid Valve Normal tricuspid valve structure. There is trace tricuspid valve regurgitation. Normal right atrial pressure. There is no evidence of pulmonary hypertension. Great Vessels The pulmonary artery was not well visualized. There is mild dilatation of the ascending aorta measuring 3.70 cm. Venous The inferior vena cava is normal in size and collapses greater than 50% with inspiration. Pericardium/Pleural There is no evidence of pericardial effusion. Prior Study Comparison No prior study available for comparison. Measurements 2D Linear Measurements IVSd: 1.02 0.6-0.9/0.6-1.0 cm LVIDd: 3.94 3.9-5.3/4.2-5.9 cm LVIDd Index: 2.06 2.4-3.2/2.2-3.1 cm/m2 LVIDs: 2.39 2.0-3.6 cm LVPWd: 1.01 0.7-1.1 cm LA Diam: 4.50 2.7-3.8/3.0-4.0 cm LAIDs Index: 2.36 1.5-2.3 cm/m2 LV Mass: 157.68 67-162/88-224 g LV Mass Index: 82.55 43-95/49-115 g/m2 LVOT Diam: 2.10 3.0+(-)1.3 cm 2D Systolic Function EF 4C: 71.80 >55% EF 2C: 61.10 >55% EF BiP: 66.90 >55% Mitral Valve MV Pk E: 0.94 MV PK A: 0.56 MV Decel Time: 189.00 E/A: 1.70 E'Lateral: 14.30 E'Medial: 10.60 E/E' Med: 8.80 E/E' Lat: 6.60 PHT: 55.00 MVA PHT: 4.00 Decel [place]: 4.96 Aortic Valve AoV Pk Buck: 1.84 AoV Mn Buck: 1.31 AoV VTI: 0.40 AoV Pk Grad: 14.00 Aov Mn Grad: 7.00 CARLO Cont.VTI: 2.94 LVOT LVOT Pk Buck: 1.58 LVOT Mn Buck: 0.94 LVOT VTI: 0.34 LVOT Pk Grad: 10.00 LVOT Mn Grad: 4.00 LVOT Diam: 2.10 LVOT Area: 3.46 Diastolic Function MV Pk E: 0.94 MV Pk A: 0.56 E/A: 1.70 E'Medial: 10.60 E/E' Med: 8.80 E' Laterial: 14.30 E/E' Lat: 6.60 Right Ventricle TAPSE (mm): 34.10 TVS' Buck: 14.80 Tricuspid Valve TR Pk Buck: 2.96 TR Pk Grad: 35.00 RA Press: 3.00 RVSP: 38.00 Great Vessels Aorta Sinus of Valsalva: 3.39 2.0-3.5 cm Ao Asc: 3.70 2.1-3.4 cm Updated in Other Vendor System with Status of Final Jorge Lambert MD electronically signed on 12/01/2023 4:29:19 PM with status of Final
== END ==
LOC: HO.CARD 13:53
PROVIDERS: PCP Internal Medicine; Visit Provider Nurse Practitioner Family
DX: I10 Essential (primary) hypertension (principal); R06.00 Dyspnea, unspecified
CPT/HCPCS: 93306; 93356

== ENCOUNTER 2023-12-03 10:52 | Outpatient (AMB) | payer OTHER, SELFPAY ==
[2023-12-03 10:59] VITALS: BP 118/82; PULSE 80; O2SAT 95; BMI 28.5
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
== END 2023-12-03 11:24 | disposition home or self-care (01) ==
PROVIDERS: PCP Internal Medicine; Referring Provider Internal Medicine; Visit Provider Internal Medicine Hypertension Specialist
DX: I10 Essential (primary) hypertension (principal); N17.9 Acute kidney failure, unspecified
CPT/HCPCS: 99204

== ENCOUNTER → 2023-12-03 10:52 | Outpatient (BNVA) | payer OTHER, SELFPAY | PROVIDERS: PCP Internal Medicine; Referring Provider Internal Medicine; Visit Provider Internal Medicine Hypertension Specialist | DX: N17.9 Acute kidney failure, unspecified (principal); I10 Essential (primary) hypertension | CPT/HCPCS: 99202 ==

== ENCOUNTER 2023-12-03 11:39 | Outpatient (REF) | payer OTHER, SELFPAY ==
[2023-12-03 13:16] LABS: MANUAL DIFF FLAG NO
[2023-12-03 13:21] LABS: Basophils Percent Auto 0.6 % (0-2); Eosinophils Absolute Auto 0.5 X10*3/uL (0.0-0.4); Eosinophils Percent Auto 8.2 % (0-4); Hematocrit 37.6 % (42.0-52.0); Hemoglobin 12.9 g/dl (14.0-18.0); Imm Gran Abs Auto 0.01 X10*3/uL (0.00-0.03); Imm Gran Pct Auto 0.2 % (0.0-0.4); Lymphocytes Absolute Auto 1.2 X10*3/uL (1.2-4.9); Lymphocytes Percent Auto 18.5 % (20-40); Mean Corpuscular HGB Conc 34.3 g/dl (31.0-36.0); Mean Corpuscular Hemoglobin 30.5 pg (27.0-33.0); Mean Corpuscular Volume 88.9 fL (80.0-98.0); Mean Platelet Volume 10.1 fL (9.4-12.4); Monocytes Absolute Auto 0.5 X10*3/uL (0.1-1.2); Monocytes Percent Auto 8.5 % (2-11); Platelet Count 219 X10*3/uL (160-400); Red Blood Count 4.23 X10*6/uL (4.60-5.80); Red Cell Distribution Width 13.9 % (11.0-16.0); White Blood Count 6.2 X10*3/uL (4.8-10.8)
[2023-12-03 13:41] LABS: Alanine Aminotransferase 11 U/L (0-40); Albumin Level 4.2 g/dL (3.5-5.0); Alkaline Phosphatase 71 U/L (39-117); Anion Gap 8 (12-20); Aspartate Amino Transferase 18 U/L (5-37); Bilirubin Total 0.7 mg/dL (0.0-1.0); Blood Urea Nitrogen 16 mg/dL (9-16); Calcium 9.7 mg/dL (8.4-10.2); Carbon Dioxide 33 mmol/L (22-29); Chloride 104 mmol/L (96-108); Estimated Glomerular Filt Rate > 60; Glucose Random 105 mg/dL (60-115); Potassium 4.3 mmol/L (3.3-5.1); Sodium 141 mmol/L (135-145); Total Protein 7.5 g/dL (6.5-8.0)
[2023-12-03 13:57] LABS: TSH reflex Free T4 2.05 uIU/mL (0.32-4.0)
[2023-12-03 15:11] LABS: Parathyroid Hormone Intact 63.9 pg/mL (8.7-77.1)
[2023-12-03 15:14] LABS: Creatinine Urine 60.26 mg/dL; Total Protein Urine Random < 7 mg/dL (<12)
== END 2023-12-03 11:40 | disposition home or self-care (01) ==
LOC: HO.10HDL 11:39
PROVIDERS: Visit Provider Internal Medicine Hypertension Specialist
DX: N05.9 Unspecified nephritic syndrome with unspecified morphologic changes (principal); N18.30 Chronic kidney disease, stage 3 unspecified; N17.9 Acute kidney failure, unspecified
CPT/HCPCS: 36415; 80053; 82570; 83970; 84156; 84443; 85025

== ENCOUNTER 2023-12-17 11:53 | Outpatient (AMB) | payer OTHER, SELFPAY ==
[2023-12-17 11:54] VITALS: BP 138/82; PULSE 73; O2SAT 97; BMI 28.3
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
== END 2023-12-17 12:15 | disposition home or self-care (01) ==
PROVIDERS: PCP Internal Medicine; Visit Provider Internal Medicine Hypertension Specialist
DX: N17.9 Acute kidney failure, unspecified (principal); I10 Essential (primary) hypertension
CPT/HCPCS: 99214

== ENCOUNTER → 2023-12-17 11:53 | Outpatient (BNVA) | payer OTHER, SELFPAY | PROVIDERS: PCP Internal Medicine; Visit Provider Internal Medicine Hypertension Specialist | DX: I10 Essential (primary) hypertension (principal); N17.9 Acute kidney failure, unspecified | CPT/HCPCS: 99212 ==

== ENCOUNTER 2023-12-30 13:14 | Outpatient (AMB) | payer OTHER, SELFPAY ==
[2023-12-30 13:24] VITALS: BP 110/64; PULSE 64; O2SAT 99; BMI 27.4
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
== END 2023-12-30 13:56 | disposition home or self-care (01) ==
LOC: HO.HPSW 13:19
PROVIDERS: PCP Internal Medicine; Visit Provider Nurse Practitioner Family
DX: J44.9 Chronic obstructive pulmonary disease, unspecified (principal); R06.00 Dyspnea, unspecified; R93.89 Abnormal findings on diagnostic imaging of other specified body structures; Z91.09 Other allergy status, other than to drugs and biological substances
CPT/HCPCS: 99214

== ENCOUNTER → 2023-12-30 13:19 | Outpatient (BNVA) | payer OTHER, SELFPAY | PROVIDERS: PCP Internal Medicine; Visit Provider Nurse Practitioner Family | DX: J44.9 Chronic obstructive pulmonary disease, unspecified (principal); R06.00 Dyspnea, unspecified; R93.89 Abnormal findings on diagnostic imaging of other specified body structures; Z91.09 Other allergy status, other than to drugs and biological substances | CPT/HCPCS: 99212 ==

== ENCOUNTER 2024-01-06 12:17 | Outpatient (REF) | payer OTHER, SELFPAY ==
[2024-01-06 13:17] LABS: Anion Gap 14 (12-20); Blood Urea Nitrogen 32 mg/dL (9-16); Calcium 9.8 mg/dL (8.4-10.2); Carbon Dioxide 27 mmol/L (22-29); Chloride 107 mmol/L (96-108); Estimated Glomerular Filt Rate 49; Glucose Random 78 mg/dL (60-115); Potassium 4.3 mmol/L (3.3-5.1); Sodium 144 mmol/L (135-145)
[2024-01-08 08:19] LABS: Immunoglobulin E 48 kU/L (<OR=114)
== END 2024-01-06 12:18 | disposition home or self-care (01) ==
LOC: HO.LAB 12:17
PROVIDERS: Nurse Practitioner Family; PCP Internal Medicine; Visit Provider Internal Medicine Hypertension Specialist
DX: N17.9 Acute kidney failure, unspecified (principal); N18.9 Chronic kidney disease, unspecified; Z91.09 Other allergy status, other than to drugs and biological substances
CPT/HCPCS: 36415; 80048; 82785; 84300

== ENCOUNTER 2024-01-07 11:24 | Outpatient (AMB) | payer OTHER, SELFPAY ==
[2024-01-07 11:44] VITALS: BP 100/64; PULSE 78; O2SAT 95; BMI 28.3
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
== END 2024-01-07 12:02 | disposition home or self-care (01) ==
PROVIDERS: PCP Internal Medicine; Visit Provider Internal Medicine Hypertension Specialist
DX: N17.9 Acute kidney failure, unspecified (principal); I10 Essential (primary) hypertension
CPT/HCPCS: 99214

== ENCOUNTER → 2024-01-07 11:24 | Outpatient (BNVA) | payer OTHER, SELFPAY | PROVIDERS: PCP Internal Medicine; Visit Provider Internal Medicine Hypertension Specialist | DX: N17.9 Acute kidney failure, unspecified (principal); I10 Essential (primary) hypertension | CPT/HCPCS: 99212 ==

== ENCOUNTER 2024-01-20 11:21 | Outpatient (REF) | payer OTHER, SELFPAY ==
[2024-01-20 12:17] LABS: Anion Gap 15 (12-20); Blood Urea Nitrogen 20 mg/dL (9-16); Calcium 9.8 mg/dL (8.4-10.2); Carbon Dioxide 26 mmol/L (22-29); Chloride 104 mmol/L (96-108); Estimated Glomerular Filt Rate > 60; Glucose Random 146 mg/dL (60-115); Potassium 4.3 mmol/L (3.3-5.1); Sodium 141 mmol/L (135-145)
== END 2024-01-20 11:22 | disposition home or self-care (01) ==
LOC: HO.LAB 11:21
PROVIDERS: PCP Internal Medicine; Visit Provider Internal Medicine Hypertension Specialist
DX: N17.9 Acute kidney failure, unspecified (principal)
CPT/HCPCS: 36415; 80048

== ENCOUNTER 2024-01-27 14:49 | Outpatient (REF) | payer OTHER, SELFPAY | END 2024-01-27 14:50 | disposition home or self-care (01) | LOC: HO.CT 14:49 | PROVIDERS: PCP Internal Medicine; Visit Provider Nurse Practitioner Family | DX: Z13.89 Encounter for screening for other disorder (principal) ==

== ENCOUNTER 2024-01-28 10:01 | Outpatient (AMB) | payer OTHER, SELFPAY ==
[2024-01-28 10:02] VITALS: BP 118/80; PULSE 75; O2SAT 97; BMI 28.7
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
== END 2024-01-28 10:17 | disposition home or self-care (01) ==
PROVIDERS: PCP Internal Medicine; Visit Provider Internal Medicine Hypertension Specialist
DX: N17.9 Acute kidney failure, unspecified (principal); I10 Essential (primary) hypertension
CPT/HCPCS: 99214

== ENCOUNTER → 2024-01-28 10:01 | Outpatient (BNVA) | payer OTHER, SELFPAY | PROVIDERS: PCP Internal Medicine; Visit Provider Internal Medicine Hypertension Specialist | DX: I10 Essential (primary) hypertension (principal); N17.9 Acute kidney failure, unspecified; F43.10 Post-traumatic stress disorder, unspecified; Z59.00 Homelessness unspecified | CPT/HCPCS: 99212 ==

== ENCOUNTER 2024-01-28 10:21 | Outpatient (REF) | payer OTHER, SELFPAY ==
[2024-01-28 11:05] LABS: Appearance Urine Clear; Color Urine Yellow; Glucose Urine UA Negative (Negative); Leukocyte Esterase Urine Trace (Negative); Nitrite Urine Negative (Negative); PH 5.5 (5.0-9.0); Specific Gravity - Urine >= 1.030 (1.005-1.025); UMIC TRIGGER UA YES; Urine Blood Negative (Negative); Urine Ketones Trace mg/dL (Negative); Urine Protein Negative (Neg-Trace)
[2024-01-28 11:08] LABS: Bacteria Urine None Seen (None Seen); Hyaline Casts Urine 0-2 /LPF (0-2); RBC Urine 0-2 /HPF (0-2); Squamous Epithelial Cell Urine 0-2 /HPF (0-2); WBC Urine 0-5 /HPF (0-5)
== END 2024-01-28 10:22 | disposition home or self-care (01) ==
LOC: HO.10HDLNP 10:21
PROVIDERS: Visit Provider Internal Medicine Hypertension Specialist
DX: N17.9 Acute kidney failure, unspecified (principal)
CPT/HCPCS: 81001; 81003

== ENCOUNTER 2024-03-30 11:50 | Outpatient (REF) | payer OTHER, SELFPAY | END 2024-03-30 11:51 | disposition home or self-care (01) | LOC: HO.10HDL 11:50 | PROVIDERS: Visit Provider Internal Medicine Hypertension Specialist | DX: Z13.89 Encounter for screening for other disorder (principal) ==

== ENCOUNTER 2024-04-04 10:46 | Outpatient (AMB) | payer OTHER, SELFPAY ==
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
[2024-04-04 10:53] VITALS: BP 160/80; PULSE 78; BMI 28.0
== END 2024-04-04 11:18 | disposition home or self-care (01) ==
PROVIDERS: PCP Internal Medicine; Visit Provider Internal Medicine
DX: R07.2 Precordial pain (principal); R06.00 Dyspnea, unspecified; J44.9 Chronic obstructive pulmonary disease, unspecified; F11.90 Opioid use, unspecified, uncomplicated
CPT/HCPCS: 99204

== ENCOUNTER → 2024-04-04 10:46 | Outpatient (BNVA) | payer OTHER, SELFPAY | PROVIDERS: PCP Internal Medicine; Visit Provider Internal Medicine | DX: R07.2 Precordial pain (principal); R06.00 Dyspnea, unspecified; J44.9 Chronic obstructive pulmonary disease, unspecified; F11.90 Opioid use, unspecified, uncomplicated | CPT/HCPCS: 99202 ==

== ENCOUNTER 2024-04-04 11:21 | Outpatient (REF) | payer OTHER, SELFPAY ==
[2024-04-04 13:30] LABS: Alanine Aminotransferase 51 U/L (0-40); Albumin Level 4.5 g/dL (3.5-5.0); Alkaline Phosphatase 79 U/L (39-117); Anion Gap 12 (12-20); Aspartate Amino Transferase 159 U/L (5-37); Bilirubin Total 0.8 mg/dL (0.0-1.0); Blood Urea Nitrogen 10 mg/dL (9-16); Blood Urea Nitrogen 11 mg/dL (9-16); Calcium 10.2 mg/dL (8.4-10.2); Calcium 10.3 mg/dL (8.4-10.2); Carbon Dioxide 29 mmol/L (22-29); Carbon Dioxide 30 mmol/L (22-29); Chloride 103 mmol/L (96-108); Estimated Glomerular Filt Rate > 60; Glucose Random 74 mg/dL (60-115); Glucose Random 75 mg/dL (60-115); Potassium 4.4 mmol/L (3.3-5.1); Sodium 140 mmol/L (135-145); Sodium 141 mmol/L (135-145); Total Protein 7.4 g/dL (6.5-8.0)
== END 2024-04-04 11:22 | disposition home or self-care (01) ==
LOC: HO.10HDL 11:21
PROVIDERS: Referring Provider Internal Medicine; Visit Provider Internal Medicine Hypertension Specialist
DX: E78.2 Mixed hyperlipidemia (principal); N17.9 Acute kidney failure, unspecified; I12.9 Hypertensive chronic kidney disease with stage 1 through stage 4 chronic kidney disease, or unspecified chronic kidney disease; N18.9 Chronic kidney disease, unspecified; J44.9 Chronic obstructive pulmonary disease, unspecified
CPT/HCPCS: 36415; 80048; 80053

== ENCOUNTER 2024-05-03 09:31 | Outpatient (AMB) | payer OTHER, SELFPAY ==
[2024-05-03 09:32] VITALS: BP 126/82; PULSE 67; O2SAT 96; BMI 28.0
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
== END 2024-05-03 09:44 | disposition home or self-care (01) ==
PROVIDERS: PCP Internal Medicine; Visit Provider Internal Medicine Hypertension Specialist
DX: N17.9 Acute kidney failure, unspecified (principal); I10 Essential (primary) hypertension
CPT/HCPCS: 99214

== ENCOUNTER → 2024-05-03 09:31 | Outpatient (BNVA) | payer OTHER, SELFPAY | PROVIDERS: PCP Internal Medicine; Visit Provider Internal Medicine Hypertension Specialist | DX: N17.9 Acute kidney failure, unspecified (principal); I10 Essential (primary) hypertension | CPT/HCPCS: 99212 ==

== ENCOUNTER → 2024-05-20 10:47 | Outpatient (REF) | payer OTHER, SELFPAY ==
--- NOTE | 2024-05-20 10:50 | CA_ITS ---
Acquisition Time: 2024-05-20 10:56:51 Total Exercise Time: 00:07:15 Test Indications: Dyspnea Medications: SEE H Protocol: DEBBI Max HR: 146 BPM 89% of Pred: 163 BPM Max BP: 180/098 mmHG Max Work Load: 8.9 METS Exercise stress test with exercise 7 min 15 sec of Debbi protocol, achieving 84% MPHR, with moderate shortness of breath, no chest discomfort, with isolated PACs, with normotensive response to exercise, without EKG changes meeting criteria for ischemia at achieved workload. Echo images obtained by tech at rest and immediately post peak exercise. Definity contrast used. Test reviewed with Dr Lambert. Referred By: Daniel Rodarte Overread By: JENNIFER LUCIANO
== END ==
LOC: HO.CARD 10:47
PROVIDERS: PCP Internal Medicine; Visit Provider Internal Medicine
DX: R07.2 Precordial pain (principal)
CPT/HCPCS: 93350; Q9957

== ENCOUNTER → 2024-05-20 10:50 | Outpatient (BNV) | payer OTHER, SELFPAY | PROVIDERS: PCP Internal Medicine; Visit Provider Nurse Practitioner Family | DX: R06.02 Shortness of breath (principal) | CPT/HCPCS: 93016; 93018; 93350; 93352 ==

== ENCOUNTER 2024-06-23 13:40 | Outpatient (AMB) | payer OTHER, SELFPAY ==
[2024-06-23 13:58] VITALS: BP 110/70; PULSE 82; BMI 26.3
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
== END 2024-06-23 14:10 | disposition home or self-care (01) ==
PROVIDERS: PCP Internal Medicine; Visit Provider Internal Medicine
DX: R07.2 Precordial pain (principal); R06.00 Dyspnea, unspecified; J44.9 Chronic obstructive pulmonary disease, unspecified; F11.90 Opioid use, unspecified, uncomplicated
CPT/HCPCS: 99213

== ENCOUNTER → 2024-06-23 13:40 | Outpatient (BNVA) | payer OTHER, SELFPAY | PROVIDERS: PCP Internal Medicine; Visit Provider Internal Medicine | DX: R07.2 Precordial pain (principal); R06.02 Shortness of breath; J44.9 Chronic obstructive pulmonary disease, unspecified; F19.20 Other psychoactive substance dependence, uncomplicated | CPT/HCPCS: 99212 ==

== ENCOUNTER 2024-08-31 18:36 | Inpatient (IN) | payer OTHER, SELFPAY ==
[2024-08-31 18:47] VITALS: BP 124/90; BP 142/89; PULSE 88; PULSE 92; RESP 18; TEMP 36.1; O2SAT 97; BMI 29.9
--- NOTE | 2024-08-31 18:52 | PC.NURSE ---
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
[2024-08-31 19:44] LABS: MANUAL DIFF FLAG NO
[2024-08-31 19:53] LABS: Basophils Percent Auto 0.3 % (0-2); Eosinophils Absolute Auto 0.1 X10*3/uL (0.0-0.4); Eosinophils Percent Auto 0.9 % (0-4); Hematocrit 43.7 % (42.0-52.0); Hemoglobin 15.2 g/dl (14.0-18.0); Imm Gran Abs Auto 0.03 X10*3/uL (0.00-0.03); Imm Gran Pct Auto 0.3 % (0.0-0.4); Lymphocytes Absolute Auto 1.5 X10*3/uL (1.2-4.9); Lymphocytes Percent Auto 13.5 % (20-40); Mean Corpuscular HGB Conc 34.8 g/dl (31.0-36.0); Mean Corpuscular Hemoglobin 30.9 pg (27.0-33.0); Mean Corpuscular Volume 88.8 fL (80.0-98.0); Mean Platelet Volume 10.6 fL (9.4-12.4); Monocytes Absolute Auto 0.9 X10*3/uL (0.1-1.2); Monocytes Percent Auto 7.6 % (2-11); Neutrophils Absolute Auto 8.9 x10*3/uL (2.0-8.3); Neutrophils Percent Auto 77.4 % (45-73); Platelet Count 223 X10*3/uL (160-400); Red Blood Count 4.92 X10*6/uL (4.60-5.80); Red Cell Distribution Width 13.6 % (11.0-16.0); White Blood Count 11.4 X10*3/uL (4.8-10.8)
[2024-08-31 20:02] LABS: Alanine Aminotransferase 26 U/L (0-40); Albumin Level 4.5 g/dL (3.5-5.0); Alkaline Phosphatase 76 U/L (39-117); Anion Gap 13 (12-20); Aspartate Amino Transferase 104 U/L (5-37); Blood Urea Nitrogen 23 mg/dL (9-16); Carbon Dioxide 23 mmol/L (22-29); Chloride 110 mmol/L (96-108); Creatinine Clr Calc Pharmacy 64.3; Estimated Glomerular Filt Rate 55; Ethanol < 10 mg/dL; Glucose Random 100 mg/dL (60-115); Potassium 3.8 mmol/L (3.3-5.1); Sodium 142 mmol/L (135-145); Total Protein 7.6 g/dL (6.5-8.0)
[2024-08-31 20:09] LABS: Bilirubin Total 1.6 mg/dL (0.0-1.0)
--- NOTE | 2024-08-31 20:15 | ED.GENADULT ---
HPI - General Adult General Chief complaint: Psychiatric Symptoms Stated complaint: Si with plan, superficial cuts to wrist Time Seen by Provider: 08/31/24 18:40 Source: patient Mode of arrival: ambulatory Limitations: no limitations History of Present Illness ED Provider: Jason Urrutia HPI narrative: [age] year male history of COPD, PTSD, hypertension presents to the ED for suicide attempt. Patient was having argument with his son in his cut his left wrist. Patient is sent to the ED for evaluation. Related Data Home Medications ?Medication ?Instructions ?Recorded ?Confirmed clonazepam 1 mg tablet (Klonopin) 1 mg PO TID 02/06/22 09/01/24 zolpidem 10 mg tablet (Ambien) 10 mg PO BEDTIME 11/10/23 09/01/24 quetiapine 50 mg tablet (Seroquel) 50 mg PO TID 12/03/23 09/01/24 albuterol sulfate 90 mcg/actuation 2 inh inhalation Q3-4H PRN Wheezing 09/01/24 09/01/24 aerosol inhaler (Ventolin HFA) amoxicillin 500 mg-potassium 1 tab PO BID 09/01/24 09/01/24 clavulanate 125 mg tablet methylprednisolone 4 mg tablets in mg 09/01/24 a dose pack oxycodone 5 mg tablet 5 mg PO TID PRN Moderate Pain 09/01/24 09/01/24 (Scale Score 5-6) quetiapine 200 mg tablet 200 mg PO BID 09/01/24 09/01/24 Previous Rx's ?Medication ?Instructions ?Recorded cyclobenzaprine 10 mg tablet 10 mg PO TID PRN muscle cramps 30 11/20/21 days #90 tabs doxepin 100 mg capsule 100 mg PO BEDTIME 30 days #30 caps 11/20/21 gabapentin 800 mg tablet 1,200 mg (1.5 x 800 mg) PO TID 30 11/20/21 days #135 tabs fluticasone furoate 100 1 inh inhalation DAILY #60 ea 08/26/24 mcg-vilanterol 25 mcg/dose inhalation powder (Breo Ellipta) Allergies Allergy/AdvReac Type Severity Reaction Status Date / Time acetaminophen [From Tylenol] Allergy Shakiness Verified 08/31/24 18:50 ibuprofen [From Motrin] Allergy Abdominal Verified 08/31/24 18:50 Pain bee pollen [bee stings] AdvReac Severe Anaphylaxis Verified 08/31/24 18:50 Review of Systems Review of Systems: Cut left wrist. SI Yes all other systems are reviewed and are negative [facility] Past Medical History Medical History (Updated 09/01/24 @ 02:56 by CHARISMA Gilbert) Adjustment disorder with mixed disturbance of emotions and conduct in remission Insomnia Chronic post-traumatic stress disorder (PTSD) Family History Family History Maternal Grandfather Heart problem Mother High blood pressure Social History Social History Household Members: None Housing: Homeless Do you presently have visiting nurse or other home services: No Alcohol intake: former Patient Tobacco Use Status: Never used Tobacco Smoked in Last 30 Days: No e-Cigarette/Vaping Use: Never Used Second Hand Smoke Exposure: No Use of substances other than those prescribed or required for medical reasons: Yes Substance Use Type: Marijuana and Opiates Substance Use Frequency: Chronic Longstanding Last Used Substance: Unknown Any prior treatment program specific to substance use: No Advance Directives: No Advance Directives Information Provided: No Do you have a plan to hurt others: Vague service: No Sexual orientation: Straight/Heterosexual Physical Exam ED Vital Signs: Vital Signs - 24 hr 08/31/24 18:47 Temperature 97 F Pulse Rate 92 Respiratory Rate 18 Blood Pressure 142/89 H Pulse Oximetry 97 Oxygen Delivery Method Room Air BMI result Body Mass Index 29.9 Const General: cooperative, healthy appearing, comfortable, no acute distress, well developed, alert, awake and Physically active Orientation/consciousness: patient oriented x3 HENMT Head: Yes normal to inspection, Yes No palpable skull fracture present, Yes normocephalic and Yes atraumatic Eyes General: appearance normal, both eyes and all related structures Neck Neck: Yes normal visual inspection, Yes full ROM, Yes no lymphadenopathy, Yes no meningeal signs, Yes trachea midline, Yes supple, No anterior neck swelling and No tender Chest Chest palpation & inspection: normal inspection of the chest and normal palpation of entire chest wall Resp Effort & Inspection: normal respiratory effort and able to speak in complete sentences Auscultation: clear to auscultation bilaterally Cardio Jugular venous distension: no JVD Heart sounds: S1 normal heart sound present and S2 normal heart sound present GI Inspection: Yes normal to inspection Palpation (GI): Soft to palpation, not firm, nontender, no guarding and not rigid General: Yes no CVA tenderness Back/Spine/Pelvis Back: no CVA tenderness and No back tenderness Skin General skin exam: no rashes or lesions noted, elasticity normal and turgor normal Neuro General: patient oriented x3, gait normal, tone normal, moves all extremities, Normal light touch and pain sensation, no meningeal signs, no focal motor deficits, CN's II-XI intact bilaterally and normal sensation to monofilament Extrem General: Yes normal to inspection, Yes full ROM and Yes capillary refill normal Hand/finger images: 1. Superficial laceration no need for laceration repair. No active bleeding. No muscle tendon exposure. Negative for signs of ligament/nerve injury/tendon injury. Rest of extremity normal. Motor/neuro/vascular exam intact Psych Appearance: grossly normal, well kempt and not disheveled Medications Administered Discontinued Medications Generic Name Dose Route Start Last Admin Trade Name Freq PRN Reason Stop Dose Admin Cyclobenzaprine HCl 10 mg 09/01/24 01:27 09/01/24 01:56 Cyclobenzaprine Hcl 10 Mg Tablet PO 09/01/24 01:28 10 mg ONCE ONE Administration Loperamide HCl 4 mg 09/01/24 01:25 09/01/24 01:55 Loperamide Hcl 2 Mg Capsule PO 09/01/24 01:26 4 mg ONCE ONE Administration Medical Decision Making Medical Decision Making [facility] Narrative: 58-year-old male presents to ED for SI attempt. Patient states up-to-date with tetanus. Patient cut his wrist while arguing with the with the son. Labs care team consult placed. 2:55pm: Patient is accepted by care team for inpatient bed search. Care team consulted states patient is decompensating. Labs are baseline Differential Diagnosis Differential Diagnoses: The differential diagnosis associated with the presentation includes (SI, depression) Admission/Observation Consideration of admission/observation: Escalation of care including admission/observation considered Consult Healthcare Provider Management of the patient was discussed with: Refining Machine Operator (Care team Jaxon) Lab Data [facility] Lab Attestation statement: I reviewed the patient's lab results. 08/31/24 19:39 08/31/24 19:39 Labs: Lab Results 08/31/24 09/01/24 Range/Units 19:39 01:40 WBC 11.4 H (4.8-10.8) X10*3/uL RBC 4.92 (4.60-5.80) X10*6/uL Hgb 15.2 (14.0-18.0) g/dl Hct 43.7 (42.0-52.0) % MCV 88.8 (80.0-98.0) fL MCH 30.9 (27.0-33.0) pg MCHC 34.8 (31.0-36.0) g/dl RDW 13.6 (11.0-16.0) % Plt Count 223 (160-400) X10*3/uL MPV 10.6 (9.4-12.4) fL Immature Gran % (Auto) 0.3 (0.0-0.4) % Neut % (Auto) 77.4 H (45-73) % Lymph % (Auto) 13.5 L (20-40) % [place] % (Auto) 7.6 (2-11) % Eos % (Auto) 0.9 (0-4) % Baso % (Auto) 0.3 (0-2) % Lymph # (Auto) 1.5 (1.2-4.9) X10*3/uL [place] # (Auto) 0.9 (0.1-1.2) X10*3/uL Eos # (Auto) 0.1 (0.0-0.4) X10*3/uL Baso # (Auto) 0.0 (0.0-0.2) X10*3/uL Abs Immat Gran (auto) 0.03 (0.00-0.03) X10*3/uL Absolute Neuts (auto) 8.9 H (2.0-8.3) x10*3/uL Absolute Nucleated RBC 0.000 (0.0-0.012) X10*3/uL Nucleated RBC % (auto) 0.0 (0.0-0.2) /100WBC Sodium 142 (135-145) mmol/L Potassium 3.8 (3.3-5.1) mmol/L Chloride 110 H (96-108) mmol/L Carbon Dioxide 23 (22-29) mmol/L Anion Gap 13 (12-20) BUN 23 H (9-16) mg/dL Creatinine 1.33 (0.5-1.4) mg/dL Estim Creat Clear Calc 64.3 Estimated GFR 55 Random Glucose 100 (60-115) mg/dL Calcium 10.0 (8.4-10.2) mg/dL Total Bilirubin 1.6 H (0.0-1.0) mg/dL AST 104 H (5-37) U/L ALT 26 (0-40) U/L Alkaline Phosphatase 76 (39-117) U/L Total Protein 7.6 (6.5-8.0) g/dL Albumin 4.5 (3.5-5.0) g/dL Urine Color Dark Yellow Urine Appearance Cloudy Urine pH 5.5 (5.0-9.0) Ur Specific [place] >= 1.030 H (1.005-1.025) Urine Protein 30 (1+) H (Neg-Trace) mg/dL Urine Glucose (UA) Negative (Negative) mg/dL Urine Ketones 15 (Negative) mg/dL Urine Blood Negative (Negative) Urine Nitrite Negative (Negative) Ur Leukocyte Esterase Trace H (Negative) Urine RBC 0-2 (0-2) /HPF Urine WBC 6-10 H (0-5) /HPF Ur Squamous Epith Cells >20 (0-2) /HPF Urine Bacteria None Seen (None Seen) Hyaline Casts >20 (0-2) /LPF Urine Opiates Screen POSITIVE H (Not Detect) Ur Buprenorphine Scrn Not Detected (Not Detect) ng/mL Ur Oxycodone Screen Not Detected (Not Detect) ng/mL Urine Methadone Screen Not Detected (Not Detect) ng/mL Urine Fentanyl Screen POSITIVE H (Not Detect) Ur Barbiturates Screen Not Detected (Not Detect) Ur Phencyclidine Scrn Not Detected (Not Detect) Ur Amphetamines Screen Not Detected (Not Detect) U Benzodiazepines Scrn POSITIVE H (Not Detect) Urine Cocaine Screen Not Detected (Not Detect) U Marijuana (THC) Screen POSITIVE H (Not Detect) Ethyl Alcohol < 10 mg/dL Influenza Type A (PCR) NEGATIVE (Negative) Influenza Type B (PCR) NEGATIVE (Negative) RSV RNA Qual (PCR) NEGATIVE (Negative) SARS-CoV-2 RNA (RT-PCR) NEGATIVE (Negative) Independent Historian Clinical information obtained from an independent historian. History obtained from or confirmed by: EMS and Other (patinet) Discharge Plan Discharge Clinical Impression: Chronic post-traumatic stress disorder (PTSD) Patient Disposition: Admitted As Inpatient Interventions: Warren-Suicide Risk Severity Scale Last Done: 08/31/24 23:40 Print Language: Bolivian
--- NOTE | 2024-08-31 21:46 | PC.NURSE ---
patient was incontinent cleaned up and ambulated back to room
--- NOTE | 2024-08-31 23:14 | PC.NURSE ---
patient was incontinent again, cleaning up patient
--- NOTE | 2024-09-01 | ECG_ITS ---
Test Reason : CHECK QT Blood Pressure : */* mmHG Vent. Rate : 90 BPM Atrial Rate : 90 BPM P-R Int : 130 ms QRS Dur : 134 ms QT Int : 402 ms P-R-T Axes : 76 -15 13 degrees QTcB Int : 491 ms Normal sinus rhythm Right bundle branch block T wave abnormality, consider lateral ischemia Abnormal ECG When compared with ECG of 15-Nov-2021 20:12, Right bundle branch block has replaced Incomplete right bundle branch block Referred By: Hira Parikh Electronically Signed By: AQUILES SABA MD
--- NOTE | 2024-09-01 01:33 | PC.NURSE ---
third episode of incontinence
[2024-09-01 01:50] LABS: Appearance Urine Cloudy; Color Urine Dark Yellow; Glucose Urine UA Negative (Negative); Leukocyte Esterase Urine Trace (Negative); Nitrite Urine Negative (Negative); PH 5.5 (5.0-9.0); Specific Gravity - Urine >= 1.030 (1.005-1.025); UMIC TRIGGER UACC YES; Urine Blood Negative (Negative); Urine Ketones 15 mg/dL (Negative); Urine Protein 30 (1+) mg/dL (Neg-Trace)
[2024-09-01] MEDS: Loperamide HCl 2 MG CAPSULE 4 MG PO (01:55)
[2024-09-01] MEDS: Cyclobenzaprine HCl 10 MG TABLET PO ×4 (01:56→20:23)
[2024-09-01 01:58] LABS: Bacteria Urine None Seen (None Seen); Hyaline Casts Urine >20 /LPF (0-2); RBC Urine 0-2 /HPF (0-2); Squamous Epithelial Cell Urine >20 /HPF (0-2); UACC Culture Trigger YES
--- NOTE | 2024-09-01 02:01 | PC.NURSE ---
client complains about choice of analgesic, t/w informed client i was working on his med rec
[2024-09-01 02:09] LABS: Amphetamine Screen Urine Not Detected (Not Detect); Barbiturates, Urine Not Detected (Not Detect); Benzodiazepines Screen Urine POSITIVE (Not Detect); Buprenorphine Scr Not Detected (Not Detect); Cannabinoid Screen Urine POSITIVE (Not Detect); Cocaine Screen Urine Not Detected (Not Detect); Fentanyl, urine POSITIVE (Not Detect); Methadone Screen, Urine Not Detected (Not Detect); Opiate Screen Urine POSITIVE (Not Detect); Oxycodone Screen Urine Not Detected (Not Detect); Phencyclidine Screen Urine Not Detected (Not Detect)
[2024-09-01 02:25] LABS: Influenza A PCR NEGATIVE (Negative); Influenza B PCR NEGATIVE (Negative); Resp Syncy Virus RNA Qual PCR NEGATIVE (Negative); SARS COV2 PCR INHOUSE NEGATIVE (Negative)
[2024-09-01] MEDS: Gabapentin 400 MG CAPSULE 1200 MG PO ×3 (05:32→20:21)
[2024-09-01] MEDS: QUEtiapine Fumarate 200 MG TABLET PO ×2 (05:35→20:21)
[2024-09-01] MEDS: oxyCODONE HCl Immed Release 5 MG TABLET PO ×3 (05:35→16:50)
[2024-09-01] MEDS: Loperamide HCl 2 MG CAPSULE PO (05:35)
[2024-09-01] MEDS: clonazePAM 1 MG TABLET PO ×3 (05:36→20:21)
[2024-09-01] MEDS: Diphth,Pertus(ACell),Tet Adult 0.5 ML SYRINGE IM (05:36)
[2024-09-01 06:21] VITALS: BP 105/67; PULSE 99; RESP 16; O2SAT 95
--- NOTE | 2024-09-01 06:31 | PC.NURSE ---
late entry-during second or third episode of incontinence clean up in restroom attending staff relayed to me client had a little tumble in the rest room client was immediately attended by staff this did result in no injury to client, when t/w went and checked in with him client did request that i cover his abbrasion on r elbow area used 2 x 4 telfa on each with cloth tape and interior left wrist where client had cut himself prior to presentation here
--- NOTE | 2024-09-01 06:42 | PC.NURSE ---
locker 6
[2024-09-01 07:46] VITALS: BP 97/59; PULSE 97; RESP 20; TEMP 36.9; O2SAT 96
[2024-09-01 08:27] VITALS: PULSE 97; RESP 18; O2SAT 100
[2024-09-01] MEDS: Fluticasone/Vilanterol 100/25 BLST.W.DEV 1 PUFF INHALE (08:27)
[2024-09-01] MEDS: Acetaminophen 325 MG TABLET 975 MG PO (08:54)
--- NOTE | 2024-09-01 09:06 | MHC.CARE ---
Pt continues to meet the criteria for MADHAVI IPLOC secondary to intentionally slicing his wrists in a suicide atttempt. Pt continues to endorse SI and hopelessness. Provider in agreement.
--- NOTE | 2024-09-01 09:29 | PC.NURSE ---
Per Psychodramatist. at [facility]- pt. is taking this med. as follows: Methylprednisolone 4mg PO QID x6 days for 08/30 - 09/04
--- NOTE | 2024-09-01 13:31 | PC.NURSE ---
RN-RN report given to M5.
--- NOTE | 2024-09-01 14:38 | PHA.MEDREC ---
Pharmacy Consult ? Medication Reconciliation Pharmacy has reviewed the medication reconciliation completed by nursing.
[2024-09-01 14:54] VITALS: BP 120/81; PULSE 112; RESP 18; TEMP 36.9; O2SAT 97; BMI 25.7
[2024-09-01] MEDS: QUEtiapine Fumarate 50 MG TABLET PO ×2 (15:08→20:21)
[2024-09-01] MEDS: Flu Vacc TS2024-25(6mos up)/PF 0.5 ML SYRINGE IM (15:10)
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
[2024-09-01] MEDS: Magnesium Hydrox/Alum Hydrox 30 ML ORAL.SUSP PO (19:54)
[2024-09-01 20:00] VITALS: BP 137/94; PULSE 118; RESP 18; TEMP 36.3; O2SAT 98
[2024-09-01] MEDS: Zolpidem Tartrate 5 MG TABLET 10 MG PO (20:22)
[2024-09-01] MEDS: Doxepin HCl 25 MG CAPSULE 100 MG PO (20:24)
[2024-09-01] MEDS: hydrOXYzine HCL 25 MG TABLET PO (21:39)
[2024-09-01] MEDS: traZODone HCL 50 MG TABLET PO (21:39)
[2024-09-02] MEDS: oxyCODONE HCl Immed Release 5 MG TABLET PO ×3 (00:43→21:24)
[2024-09-02 08:16] VITALS: BP 113/82; PULSE 108; TEMP 36.6; O2SAT 97
[2024-09-02 09:00] LABS: Estimated Average Glucose 108 mg/dL; Hemoglobin A1C 124.1147 umol/L; Hemoglobin A1c % 5.4 % (<6.0); Total Hemoglobin (HGBA1C) 3467.8046 umol/L
[2024-09-02] MEDS: clonazePAM 1 MG TABLET PO ×3 (09:09→21:14)
[2024-09-02] MEDS: QUEtiapine Fumarate 200 MG TABLET PO ×2 (09:10→21:14)
[2024-09-02] MEDS: QUEtiapine Fumarate 50 MG TABLET PO ×3 (09:10→21:14)
[2024-09-02] MEDS: Gabapentin 400 MG CAPSULE 1200 MG PO ×3 (09:11→21:14)
[2024-09-02 09:20] LABS: Cholesterol 159 mg/dL (<200); HDL Cholesterol 53 mg/dL (>40); LDL Cholesterol Calculated 93 mg/dL (<100); Magnesium 1.9 mg/dL (1.6-2.6); Triglycerides 69 mg/dL (<150)
[2024-09-02 09:31] LABS: Free T4 (Free Thyroxine) 1.28 ng/dL (0.71-1.85); Thyroid Stimulating Hormone 0.71 uIU/mL (0.32-4.0)
[2024-09-02 09:43] LABS: Folate 10.5 ng/mL (> or = 4.0); Vitamin B12 286 pg/mL (200-900)
[2024-09-02] MEDS: Ondansetron ODT 4 MG TAB.RAPDIS TRANSLINGU (11:46)
[2024-09-02] MEDS: Loperamide HCl 2 MG CAPSULE PO (11:46)
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
[2024-09-02 20:00] VITALS: BP 120/76; PULSE 106; RESP 16; TEMP 36.4; O2SAT 97
[2024-09-02] MEDS: Zolpidem Tartrate 5 MG TABLET 10 MG PO (21:13)
[2024-09-02] MEDS: Doxepin HCl 25 MG CAPSULE 100 MG PO (21:13)
[2024-09-02] MEDS: Cyclobenzaprine HCl 10 MG TABLET PO (21:14)
[2024-09-02] MEDS: hydrOXYzine HCL 25 MG TABLET PO (21:14)
--- NOTE | 2024-09-03 05:54 | P.PNPSI_ITS ---
Subjective Subjective Date of Service: 09/03/24 Reason For Visit: mixed adjustment reaction, polysubstance use diso Interim History: Pt seen and discussed with his team. Pt reports today GI sx vomiting, diarrhea,low grade fever. Resting and reports no med changes are needed today Medication Compliance: Yes Side effects from medications: No Attending Groups: No Review of Systems Acute medical concerns: No Review of Systems Review of Systems GI sx Mental Status Exam Mental Status Exam Patient Appearance: Appropriate Patient Orientation: Person, Place, Time and Situation Level of Consciousness: Alert Patient Behavior: Appropriate, Talkative, Cooperative and Good Eye Contact Mood Description: Depressed Affect Description: Flat Patient Cognition Impaired: No Ability to Follow Directions: Good Speech Pattern: Spontaneous Speech Memory Description: Intact Hallucinations: None Delusions: Not Present Perceptual Disturbances: Depersonalization Thought Process: Rumination Thought Content: positive for Perseveration Judgement: Good Diagnostics Vital Signs (24Hr): Vital Signs - 24 hr 09/02/24 08:16 09/02/24 20:00 Temperature 97.8 F 97.6 F Pulse Rate 108 H 106 H Respiratory Rate 16 Blood Pressure 113/82 120/76 Pulse Oximetry 97 97 Oxygen Delivery Method Room Air Room Air BMI result Body Mass Index 25.7 Labs 08/31/24 19:39 08/31/24 19:39 Labs: Laboratory Results - last 48 hr 09/02/24 08:25 Estimat Average Glucose 108 Hemoglobin A1c % 5.4 Magnesium 1.9 Triglycerides 69 Cholesterol 159 LDL Cholesterol, Calc 93 HDL Cholesterol 53 Vitamin B12 286 Folate 10.5 TSH 0.71 Free T4 1.28 Medications Medications Current Medications Al Hydroxide/Mg Hydroxide (Magnesium Hydrox/Alum Hydrox 30 Ml Oral.Susp) 30 ml PO Q6H PRN PRN Reason: Heartburn/Nausea Last Admin: 09/01/24 19:54 Dose: 30 ml Albuterol Sulfate (Albuterol Sulfate 90 Mcg 8 Gm Inhaler) 2 puff INHALE Q3H PRN PRN Reason: Wheezing Clonazepam (Clonazepam 1 Mg Tablet) 1 mg PO TID [facility] Last Admin: 09/02/24 21:14 Dose: 1 mg Cyclobenzaprine HCl (Cyclobenzaprine Hcl 10 Mg Tablet) 10 mg PO TID PRN PRN Reason: muscle cramps Last Admin: 09/02/24 21:14 Dose: 10 mg Doxepin HCl (Doxepin Hcl 25 Mg Capsule) 100 mg PO BEDTIME [facility] Last Admin: 09/02/24 21:13 Dose: 100 mg Fluticasone/Vilanterol (Fluticasone/Vilanterol 100/25 Blst.W.Dev) 1 puff INHALE DAILY [facility] Last Admin: 09/02/24 10:47 Dose: Not Given Gabapentin (Gabapentin 400 Mg Capsule) 1,200 mg PO TID [facility] Last Admin: 09/02/24 21:14 Dose: 1,200 mg Hydroxyzine HCl (Hydroxyzine Hcl 25 Mg Tablet) 25 mg PO Q6H PRN PRN Reason: Anxiety Last Admin: 09/02/24 21:14 Dose: 25 mg Loperamide HCl (Loperamide Hcl 2 Mg Capsule) 2 mg PO Q4H PRN PRN Reason: Nausea and Vomiting Last Admin: 09/02/24 11:46 Dose: 2 mg Magnesium Hydroxide (Milk Of Magnesia 30 Ml Oral.Susp) 30 ml PO DAILY PRN PRN Reason: Constipation Nicotine (Nicotine 21 Mg Patch.Td24) 21 mg TRANSDERMA DAILY PRN PRN Reason: nicotine cravings Nicotine Polacrilex (Nicotine Polacrilex 2 Mg Gum) 4 mg BUCCAL Q2H PRN PRN Reason: Nicotine Cravings Ondansetron HCl (Ondansetron Odt 4 Mg Tab.Rapdis) 4 mg TRANSLINGU Q6H PRN PRN Reason: Nausea and Vomiting Last Admin: 09/02/24 11:46 Dose: 4 mg Oxycodone HCl (Oxycodone Hcl Immed Release 5 Mg Tablet) 5 mg PO TID PRN PRN Reason: Moderate Pain (Scale Score 5-6) Last Admin: 09/02/24 21:24 Dose: 5 mg Quetiapine Fumarate (Quetiapine Fumarate 200 Mg Tablet) 200 mg PO BID [facility] Last Admin: 09/02/24 21:14 Dose: 200 mg Quetiapine Fumarate (Quetiapine Fumarate 50 Mg Tablet) 50 mg PO TID [facility] Last Admin: 09/02/24 21:14 Dose: 50 mg Trazodone HCl (Trazodone Hcl 50 Mg Tablet) 50 mg PO BEDTIME MRX1 PRN PRN Reason: Insomnia Last Admin: 09/01/24 21:39 Dose: 50 mg Zolpidem Tartrate (Zolpidem Tartrate 5 Mg Tablet) 10 mg PO BEDTIME [facility] Last Admin: 09/02/24 21:13 Dose: 10 mg Allergies Allergies Allergy/AdvReac Type Severity Reaction Status Date / Time acetaminophen [From Tylenol] Allergy Shakiness Verified 08/31/24 18:50 ibuprofen [From Motrin] Allergy Abdominal Verified 08/31/24 18:50 Pain bee pollen [bee stings] AdvReac Severe Anaphylaxis Verified 08/31/24 18:50 Assessment & Plan Assessment & Plan (1) Chronic post-traumatic stress disorder (PTSD): Status: Acute Code(s): F43.12 - Post-traumatic stress disorder, chronic (2) Depression: Status: Acute Code(s): F32.A - Depression, unspecified (3) Substance abuse: Status: Acute Code(s): F19.10 - Other psychoactive substance abuse, uncomplicated Plan PTSD, Major Depression, Substance Abuse. 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
[2024-09-03 08:00] VITALS: BP 115/83; PULSE 101; TEMP 37.2; O2SAT 99
[2024-09-03] MEDS: Gabapentin 400 MG CAPSULE 1200 MG PO ×3 (08:42→22:21)
[2024-09-03] MEDS: QUEtiapine Fumarate 50 MG TABLET PO ×3 (08:43→22:20)
[2024-09-03] MEDS: QUEtiapine Fumarate 200 MG TABLET PO ×2 (08:43→22:21)
[2024-09-03] MEDS: clonazePAM 1 MG TABLET PO ×3 (08:43→22:20)
[2024-09-03] MEDS: oxyCODONE HCl Immed Release 5 MG TABLET PO ×2 (08:48→15:59)
[2024-09-03] MEDS: Fluticasone/Vilanterol 100/25 BLST.W.DEV 1 PUFF INHALE (12:48)
[2024-09-03 17:40] VITALS: TEMP 36.9
[2024-09-03 17:44] VITALS: TEMP 36.9
[2024-09-03 20:00] VITALS: BP 125/67; PULSE 68; RESP 16; TEMP 36.8; O2SAT 96
[2024-09-03] MEDS: Cyclobenzaprine HCl 10 MG TABLET PO (22:19)
[2024-09-03] MEDS: hydrOXYzine HCL 25 MG TABLET PO (22:19)
[2024-09-03] MEDS: Zolpidem Tartrate 5 MG TABLET 10 MG PO (22:20)
[2024-09-03] MEDS: Doxepin HCl 25 MG CAPSULE 100 MG PO (22:20)
[2024-09-04] MEDS: traZODone HCL 50 MG TABLET PO ×2 (03:43→21:05)
--- NOTE | 2024-09-04 03:51 | PC.NURSE ---
Patient said he is not allergic to Ibuprofen or Tylenol and would like them ordered. He would also like Lidocaine patches ordered.
[2024-09-04] MEDS: Cyclobenzaprine HCl 10 MG TABLET PO (07:08)
[2024-09-04] MEDS: oxyCODONE HCl Immed Release 5 MG TABLET PO ×3 (07:08→21:15)
[2024-09-04] MEDS: hydrOXYzine HCL 25 MG TABLET PO (07:09)
[2024-09-04 07:50] VITALS: BP 152/89; PULSE 106; TEMP 37.9; O2SAT 95
--- NOTE | 2024-09-04 08:45 | P.PNPSI_ITS ---
Subjective Subjective Date of Service: 09/04/24 Reason For Visit: mixed adjustment reaction, polysubstance use diso Interim History: LPt seen, discussed with his team. Today, reports GI sx resolved, however with difficulty swallowing and sore throat. Diagnostics ordered Reports mood sx are not increased Hoping for DC 09/06 Denies SI/HI/AH/VH. No sx of acute willis or psychosis. Medication Compliance: Yes Side effects from medications: No Attending Groups: Intermittent Review of Systems Acute medical concerns: No Medical Review of Systems: unchanged Review of Systems Review of Systems sore throat, difficulty swallowing. Mental Status Exam Mental Status Exam Patient Appearance: Appropriate Patient Orientation: Person, Place, Time and Situation Level of Consciousness: Alert Patient Behavior: Appropriate, Talkative, Cooperative and Good Eye Contact Mood Description: Depressed Affect Description: Flat Patient Cognition Impaired: No Ability to Follow Directions: Good Speech Pattern: Spontaneous Speech Memory Description: Intact Hallucinations: None Delusions: Not Present Perceptual Disturbances: Depersonalization Thought Process: Rumination Thought Content: positive for Perseveration Judgement: Good Diagnostics Vital Signs (24Hr): Vital Signs - 24 hr 09/03/24 17:40 09/03/24 17:44 09/03/24 20:00 Temperature 98.4 F 98.4 F 98.2 F Pulse Rate 68 Respiratory Rate 16 Blood Pressure 125/67 Pulse Oximetry 96 Oxygen Delivery Method Room Air 09/04/24 07:50 Temperature 100.3 F Pulse Rate 106 H Respiratory Rate Blood Pressure 152/89 H Pulse Oximetry 95 Oxygen Delivery Method Room Air BMI result Body Mass Index 25.7 Labs 08/31/24 19:39 08/31/24 19:39 Labs: Laboratory Results - last 48 hr 09/02/24 08:25 Estimat Average Glucose 108 Hemoglobin A1c % 5.4 Magnesium 1.9 Triglycerides 69 Cholesterol 159 LDL Cholesterol, Calc 93 HDL Cholesterol 53 Vitamin B12 286 Folate 10.5 TSH 0.71 Free T4 1.28 Medications Medications Current Medications Al Hydroxide/Mg Hydroxide (Magnesium Hydrox/Alum Hydrox 30 Ml Oral.Susp) 30 ml PO Q6H PRN PRN Reason: Heartburn/Nausea Last Admin: 09/01/24 19:54 Dose: 30 ml Albuterol Sulfate (Albuterol Sulfate 90 Mcg 8 Gm Inhaler) 2 puff INHALE Q3H PRN PRN Reason: Wheezing Clonazepam (Clonazepam 1 Mg Tablet) 1 mg PO TID [facility] Last Admin: 09/03/24 22:20 Dose: 1 mg Cyclobenzaprine HCl (Cyclobenzaprine Hcl 10 Mg Tablet) 10 mg PO TID PRN PRN Reason: muscle cramps Last Admin: 09/04/24 07:08 Dose: 10 mg Doxepin HCl (Doxepin Hcl 25 Mg Capsule) 100 mg PO BEDTIME [facility] Last Admin: 09/03/24 22:20 Dose: 100 mg Fluticasone/Vilanterol (Fluticasone/Vilanterol 100/25 Blst.W.Dev) 1 puff INHALE DAILY [facility] Last Admin: 09/03/24 12:48 Dose: 1 puff Gabapentin (Gabapentin 400 Mg Capsule) 1,200 mg PO TID [facility] Last Admin: 09/03/24 22:21 Dose: 1,200 mg Hydroxyzine HCl (Hydroxyzine Hcl 25 Mg Tablet) 25 mg PO Q6H PRN PRN Reason: Anxiety Last Admin: 09/04/24 07:09 Dose: 25 mg Loperamide HCl (Loperamide Hcl 2 Mg Capsule) 2 mg PO Q4H PRN PRN Reason: Nausea and Vomiting Last Admin: 09/02/24 11:46 Dose: 2 mg Magnesium Hydroxide (Milk Of Magnesia 30 Ml Oral.Susp) 30 ml PO DAILY PRN PRN Reason: Constipation Nicotine (Nicotine 21 Mg Patch.Td24) 21 mg TRANSDERMA DAILY PRN PRN Reason: nicotine cravings Nicotine Polacrilex (Nicotine Polacrilex 2 Mg Gum) 4 mg BUCCAL Q2H PRN PRN Reason: Nicotine Cravings Ondansetron HCl (Ondansetron Odt 4 Mg Tab.Rapdis) 4 mg TRANSLINGU Q6H PRN PRN Reason: Nausea and Vomiting Last Admin: 09/02/24 11:46 Dose: 4 mg Oxycodone HCl (Oxycodone Hcl Immed Release 5 Mg Tablet) 5 mg PO TID PRN PRN Reason: Moderate Pain (Scale Score 5-6) Last Admin: 09/04/24 07:08 Dose: 5 mg Quetiapine Fumarate (Quetiapine Fumarate 200 Mg Tablet) 200 mg PO BID [facility] Last Admin: 09/03/24 22:21 Dose: 200 mg Quetiapine Fumarate (Quetiapine Fumarate 50 Mg Tablet) 50 mg PO TID [facility] Last Admin: 09/03/24 22:20 Dose: 50 mg Trazodone HCl (Trazodone Hcl 50 Mg Tablet) 50 mg PO BEDTIME MRX1 PRN PRN Reason: Insomnia Last Admin: 09/04/24 03:43 Dose: 50 mg Zolpidem Tartrate (Zolpidem Tartrate 5 Mg Tablet) 10 mg PO BEDTIME [facility] Last Admin: 09/03/24 22:20 Dose: 10 mg Allergies Allergies Allergy/AdvReac Type Severity Reaction Status Date / Time acetaminophen [From Tylenol] Allergy Shakiness Verified 08/31/24 18:50 ibuprofen [From Motrin] Allergy Abdominal Verified 08/31/24 18:50 Pain bee pollen [bee stings] AdvReac Severe Anaphylaxis Verified 08/31/24 18:50 Assessment & Plan Assessment & Plan (1) Chronic post-traumatic stress disorder (PTSD): Status: Acute Code(s): F43.12 - Post-traumatic stress disorder, chronic (2) Depression: Status: Acute Code(s): F32.A - Depression, unspecified (3) Substance abuse: Status: Acute Code(s): F19.10 - Other psychoactive substance abuse, uncomplicated Plan PTSD, Major Depression, Substance Abuse. 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
[2024-09-04] MEDS: Gabapentin 400 MG CAPSULE 1200 MG PO ×3 (08:55→21:05)
[2024-09-04] MEDS: QUEtiapine Fumarate 200 MG TABLET PO ×2 (08:55→21:06)
[2024-09-04] MEDS: Fluticasone/Vilanterol 100/25 BLST.W.DEV 1 PUFF INHALE (08:55)
[2024-09-04] MEDS: clonazePAM 1 MG TABLET PO ×3 (08:55→21:06)
[2024-09-04] MEDS: QUEtiapine Fumarate 50 MG TABLET PO ×3 (09:00→21:06)
[2024-09-04] MEDS: Throat Lozenge, Medicated LOZENGE 1 LOZENGE MUCOUS MEM (13:28)
[2024-09-04 20:00] VITALS: BP 132/89; PULSE 115; TEMP 36.8; O2SAT 97
[2024-09-04] MEDS: Doxepin HCl 25 MG CAPSULE 100 MG PO (21:03)
[2024-09-04] MEDS: Zolpidem Tartrate 5 MG TABLET 10 MG PO (21:04)
[2024-09-05] MEDS: oxyCODONE HCl Immed Release 5 MG TABLET PO ×4 (03:50→20:32)
[2024-09-05] MEDS: hydrOXYzine HCL 25 MG TABLET PO ×2 (03:50→10:40)
[2024-09-05] MEDS: Cyclobenzaprine HCl 10 MG TABLET PO ×3 (03:51→16:35)
[2024-09-05 07:50] VITALS: BP 136/85; PULSE 100; RESP 18; TEMP 36.8; O2SAT 96
[2024-09-05] MEDS: QUEtiapine Fumarate 200 MG TABLET PO ×2 (08:28→20:32)
[2024-09-05] MEDS: QUEtiapine Fumarate 50 MG TABLET PO ×3 (08:28→20:32)
[2024-09-05] MEDS: Fluticasone/Vilanterol 100/25 BLST.W.DEV 1 PUFF INHALE (08:28)
[2024-09-05] MEDS: Gabapentin 400 MG CAPSULE 1200 MG PO ×3 (08:28→20:32)
[2024-09-05] MEDS: clonazePAM 1 MG TABLET PO ×5 (08:28→20:32)
--- NOTE | 2024-09-05 10:45 | P.PNPSI_ITS ---
Subjective Subjective Date of Service: 09/05/24 Reason For Visit: mixed adjustment reaction, polysubstance use diso Subjective Notes: Conditional Voluntary Healthcare Proxy: No Guardianship: No Medical Problems Affecting Mental Status: No Interim History: Prepared for discharge. Denies SI/HI/AH/VH No sx of acute willis or psychosis Review of meds. No prescriptions needed per pt except hydroxyzine Medication Compliance: Yes Side effects from medications: No Attending Groups: Intermittent Review of Systems Acute medical concerns: No Review of Systems Review of Systems Arm is sore from flu shot Yes all other systems are reviewed and are negative Mental Status Exam Mental Status Exam Patient Appearance: Appropriate Patient Orientation: Person, Place, Time and Situation Level of Consciousness: Alert Patient Behavior: Appropriate, Talkative, Cooperative and Good Eye Contact Mood Description: Depressed Affect Description: Flat Patient Cognition Impaired: No Ability to Follow Directions: Good Speech Pattern: Spontaneous Speech Memory Description: Intact Hallucinations: None Delusions: Not Present Perceptual Disturbances: Depersonalization Thought Process: Rumination Thought Content: positive for Perseveration Judgement: Good Diagnostics Vital Signs (24Hr): Vital Signs - 24 hr 09/04/24 20:00 09/05/24 07:50 Temperature 98.2 F 98.3 F Pulse Rate 115 H 100 Respiratory Rate 18 Blood Pressure 132/89 136/85 Pulse Oximetry 97 96 Oxygen Delivery Method Room Air Room Air BMI result Body Mass Index 25.7 Labs 08/31/24 19:39 08/31/24 19:39 Medications Medications Current Medications Al Hydroxide/Mg Hydroxide (Magnesium Hydrox/Alum Hydrox 30 Ml Oral.Susp) 30 ml PO Q6H PRN PRN Reason: Heartburn/Nausea Last Admin: 09/01/24 19:54 Dose: 30 ml Albuterol Sulfate (Albuterol Sulfate 90 Mcg 8 Gm Inhaler) 2 puff INHALE Q3H PRN PRN Reason: Wheezing Benzocaine (Throat Lozenge, Medicated Lozenge) 1 lozenge MUCOUS MEM Q2H PRN PRN Reason: Sore Throat Last Admin: 09/04/24 13:28 Dose: 1 lozenge Clonazepam (Clonazepam 1 Mg Tablet) 1 mg PO TID [facility] Last Admin: 09/05/24 08:28 Dose: 1 mg Cyclobenzaprine HCl (Cyclobenzaprine Hcl 10 Mg Tablet) 10 mg PO TID PRN PRN Reason: muscle cramps Last Admin: 09/05/24 10:40 Dose: 10 mg Doxepin HCl (Doxepin Hcl 25 Mg Capsule) 100 mg PO BEDTIME [facility] Last Admin: 09/04/24 21:03 Dose: 100 mg Fluticasone/Vilanterol (Fluticasone/Vilanterol 100/25 Blst.W.Dev) 1 puff INHALE DAILY [facility] Last Admin: 09/05/24 08:28 Dose: 1 puff Gabapentin (Gabapentin 400 Mg Capsule) 1,200 mg PO TID [facility] Last Admin: 09/05/24 08:28 Dose: 1,200 mg Hydroxyzine HCl (Hydroxyzine Hcl 25 Mg Tablet) 25 mg PO Q6H PRN PRN Reason: Anxiety Last Admin: 09/05/24 10:40 Dose: 25 mg Loperamide HCl (Loperamide Hcl 2 Mg Capsule) 2 mg PO Q4H PRN PRN Reason: Nausea and Vomiting Last Admin: 09/02/24 11:46 Dose: 2 mg Magnesium Hydroxide (Milk Of Magnesia 30 Ml Oral.Susp) 30 ml PO DAILY PRN PRN Reason: Constipation Nicotine (Nicotine 21 Mg Patch.Td24) 21 mg TRANSDERMA DAILY PRN PRN Reason: nicotine cravings Nicotine Polacrilex (Nicotine Polacrilex 2 Mg Gum) 4 mg BUCCAL Q2H PRN PRN Reason: Nicotine Cravings Ondansetron HCl (Ondansetron Odt 4 Mg Tab.Rapdis) 4 mg TRANSLINGU Q6H PRN PRN Reason: Nausea and Vomiting Last Admin: 09/02/24 11:46 Dose: 4 mg Oxycodone HCl (Oxycodone Hcl Immed Release 5 Mg Tablet) 5 mg PO TID PRN PRN Reason: Moderate Pain (Scale Score 5-6) Last Admin: 09/05/24 10:40 Dose: 5 mg Quetiapine Fumarate (Quetiapine Fumarate 200 Mg Tablet) 200 mg PO BID [facility] Last Admin: 09/05/24 08:28 Dose: 200 mg Quetiapine Fumarate (Quetiapine Fumarate 50 Mg Tablet) 50 mg PO TID [facility] Last Admin: 09/05/24 08:28 Dose: 50 mg Trazodone HCl (Trazodone Hcl 50 Mg Tablet) 50 mg PO BEDTIME MRX1 PRN PRN Reason: Insomnia Last Admin: 09/04/24 21:05 Dose: 50 mg Zolpidem Tartrate (Zolpidem Tartrate 5 Mg Tablet) 10 mg PO BEDTIME [facility] Last Admin: 09/04/24 21:04 Dose: 10 mg Allergies Allergies Allergy/AdvReac Type Severity Reaction Status Date / Time ibuprofen [From Motrin] Allergy Abdominal Verified 08/31/24 18:50 Pain bee pollen [bee stings] AdvReac Severe Anaphylaxis Verified 08/31/24 18:50 Assessment & Plan Assessment & Plan (1) Chronic post-traumatic stress disorder (PTSD): Status: Acute Code(s): F43.12 - Post-traumatic stress disorder, chronic (2) Depression: Status: Acute Code(s): F32.A - Depression, unspecified (3) Substance abuse: Status: Acute Code(s): F19.10 - Other psychoactive substance abuse, uncomplicated Plan PTSD, Major Depression, Substance Abuse. 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
[2024-09-05] MEDS: Lidocaine 4 % Patch ADH..PATCH 2 PATCH TRANSDERMA (15:19)
[2024-09-05] MEDS: Acetaminophen 325 MG TABLET 650 MG PO (18:58)
[2024-09-05 19:40] VITALS: BP 155/96; PULSE 99; RESP 16; TEMP 36.9; O2SAT 97
[2024-09-05] MEDS: traZODone HCL 50 MG TABLET PO (20:32)
[2024-09-05] MEDS: Zolpidem Tartrate 5 MG TABLET 10 MG PO (20:32)
[2024-09-05] MEDS: Doxepin HCl 25 MG CAPSULE 100 MG PO (20:32)
[2024-09-06] MEDS: Cyclobenzaprine HCl 10 MG TABLET PO (00:24)
[2024-09-06] MEDS: hydrOXYzine HCL 25 MG TABLET PO (00:24)
[2024-09-06] MEDS: Acetaminophen 325 MG TABLET 650 MG PO (00:24)
[2024-09-06] MEDS: traZODone HCL 50 MG TABLET PO (00:25)
[2024-09-06] MEDS: oxyCODONE HCl Immed Release 5 MG TABLET PO (04:30)
[2024-09-06 08:00] VITALS: BP 146/87; PULSE 95; RESP 18; O2SAT 98
--- NOTE | 2024-09-06 08:45 | P.DS_ITS ---
DS: Providers Provider Date of admission: 09/01/24 13:17 Primary care physician: Amber Pacheco MD DS: Diagnosis Discharge Diagnosis (1) Chronic post-traumatic stress disorder (PTSD): Status: Acute (2) Depression: Status: Acute (3) Substance abuse: Status: Acute DS: Medications Discharge Medications Home Medications: Home Medications ?Medication ?Instructions ?Recorded ?Confirmed clonazepam 1 mg tablet (Klonopin) 1 mg PO TID 02/06/22 09/01/24 zolpidem 10 mg tablet (Ambien) 10 mg PO BEDTIME 11/10/23 09/01/24 quetiapine 50 mg tablet (Seroquel) 50 mg PO TID 12/03/23 09/01/24 albuterol sulfate 90 mcg/actuation 2 inh inhalation Q3-4H PRN Wheezing 09/01/24 09/01/24 aerosol inhaler (Ventolin HFA) methylprednisolone 4 mg tablets in 4 mg PO QID 09/01/24 09/01/24 a dose pack oxycodone 5 mg tablet 5 mg PO TID PRN Moderate Pain 09/01/24 09/01/24 (Scale Score 5-6) quetiapine 200 mg tablet 200 mg PO BID 09/01/24 09/01/24 Previous Rx's ?Medication ?Instructions ?Recorded cyclobenzaprine 10 mg tablet 10 mg PO TID PRN muscle cramps 30 11/20/21 days #90 tabs doxepin 100 mg capsule 100 mg PO BEDTIME 30 days #30 caps 11/20/21 gabapentin 800 mg tablet 1,200 mg (1.5 x 800 mg) PO TID 30 11/20/21 days #135 tabs fluticasone furoate 100 1 inh inhalation DAILY #60 ea 08/26/24 mcg-vilanterol 25 mcg/dose inhalation powder (Breo Ellipta) acetaminophen 325 mg tablet 650 mg (2 x 325 mg) PO Q6H PRN 09/06/24 Pain, Mild (Pain Scale 1-3) #0 tabs hydroxyzine HCl 25 mg tablet 25 mg PO Q6H PRN Anxiety #60 tabs 09/06/24 lidocaine 4 % topical patch 2 patch transdermal DAILY #60 ea 09/06/24 (Lidocaine Pain Relief) Data Data Completed and Pending Completed studies during hospitalization [Text1]: 08/31/24 09/01/24 09/02/24 19:39 01:40 08:25 WBC 11.4 H RBC 4.92 Hgb 15.2 Hct 43.7 MCV 88.8 MCH 30.9 MCHC 34.8 RDW 13.6 Plt Count 223 MPV 10.6 Immature Gran % (Auto) 0.3 Neut % (Auto) 77.4 H Lymph % (Auto) 13.5 L [place] % (Auto) 7.6 Eos % (Auto) 0.9 Baso % (Auto) 0.3 Lymph # (Auto) 1.5 [place] # (Auto) 0.9 Eos # (Auto) 0.1 Baso # (Auto) 0.0 Abs Immat Gran (auto) 0.03 Absolute Neuts (auto) 8.9 H Absolute Nucleated RBC 0.000 Nucleated RBC % (auto) 0.0 Sodium 142 Potassium 3.8 Chloride 110 H Carbon Dioxide 23 Anion Gap 13 BUN 23 H Creatinine 1.33 Estim Creat Clear Calc 64.3 Estimated GFR 55 Random Glucose 100 Estimat Average Glucose 108 Hemoglobin A1c % 5.4 Calcium 10.0 Magnesium 1.9 Total Bilirubin 1.6 H AST 104 H ALT 26 Alkaline Phosphatase 76 Total Protein 7.6 Albumin 4.5 Triglycerides 69 Cholesterol 159 LDL Cholesterol, Calc 93 HDL Cholesterol 53 Vitamin B12 286 Folate 10.5 TSH 0.71 Free T4 1.28 Urine Color Dark Yellow Urine Appearance Cloudy Urine pH 5.5 Ur Specific [place] >= 1.030 H Urine Protein 30 (1+) H Urine Glucose (UA) Negative Urine Ketones 15 Urine Blood Negative Urine Nitrite Negative Ur Leukocyte Esterase Trace H Urine RBC 0-2 Urine WBC 6-10 H Ur Squamous Epith Cells >20 Urine Bacteria None Seen Hyaline Casts >20 Urine Opiates Screen POSITIVE H Ur Buprenorphine Scrn Not Detected Ur Oxycodone Screen Not Detected Urine Methadone Screen Not Detected Urine Fentanyl Screen POSITIVE H Ur Barbiturates Screen Not Detected Ur Phencyclidine Scrn Not Detected Ur Amphetamines Screen Not Detected U Benzodiazepines Scrn POSITIVE H Urine Cocaine Screen Not Detected U Marijuana (THC) Screen POSITIVE H Ethyl Alcohol < 10 Influenza Type A (PCR) NEGATIVE Influenza Type B (PCR) NEGATIVE RSV RNA Qual (PCR) NEGATIVE SARS-CoV-2 RNA (RT-PCR) NEGATIVE 09/04/24 13:25 Throat Throat Culture - Preliminary Culture in progress. 09/01/24 Unknown Urine clean catch - Clean Catch Midstream Urine Culture - Final DS: Summary Time Spent with Patient Time attestation: Total time managing care of this patient today ____ minutes. Discharge Plan Discharge Anticipated Discharge Date/Time: 09/06/24 12:00 Patient Disposition: Home, Self-Care Discharge Diagnosis: PTSD Depression Polysubstance Use Disorder Referrals: [facility] Psychiatry with Abdoul Gould [Other] - 09/30/24 11:30 am Amber Pacheco MD [Primary Care Provider] - 1 Week Discharge Medications: New acetaminophen 325 mg Tablet 650 mg PO Q6H PRN (Reason: Pain, Mild (Pain Scale 1-3)) Qty: 0 0RF lidocaine [Lidocaine Pain Relief] 4 % Adhesive Patch,Medicated 2 patch transdermal DAILY Qty: 60 0RF Protocol: Apply to: Apply to: arm, back hydroxyzine HCl 25 mg Tablet 25 mg PO Q6H PRN (Reason: Anxiety) Qty: 60 0RF Continued fluticasone furoate-vilanterol [Breo Ellipta] 100-25 mcg/dose blister with device 1 inh inhalation DAILY Qty: 60 6RF cyclobenzaprine 10 mg Tablet 10 mg PO TID PRN (Reason: muscle cramps) 30 Days Qty: 90 0RF doxepin 100 mg capsule 100 mg PO BEDTIME 30 Days Qty: 30 0RF gabapentin 800 mg tablet 1,200 mg PO TID 30 Days Qty: 135 0RF quetiapine 200 mg tablet 200 mg PO BID methylprednisolone 4 mg tablets,dose pack 4 mg PO QID Patient Comments: Per Compliance Manager. at [facility]- pt. is taking this med. as follows: Methylprednisolone 4mg PO QID x6 days for 08/30 - 09/04 oxycodone 5 mg tablet 5 mg PO TID PRN (Reason: Moderate Pain (Scale Score 5-6)) albuterol sulfate [Ventolin HFA] 90 mcg/actuation HFA aerosol inhaler 2 inh INHALATION Q3-4H PRN (Reason: Wheezing) clonazepam [Klonopin] 1 mg tablet 1 mg PO TID zolpidem [Ambien] 10 mg tablet 10 mg PO BEDTIME quetiapine [Seroquel] 50 mg tablet 50 mg PO TID Discontinued amoxicillin-pot clavulanate 500-125 mg tablet 1 tab PO BID Discharge Orders: Discharge Order (Routine); Ordered 09/06/24 Ordered By: Clary Rachel Diet: Advance to usual diet Activity on Discharge: As tolerated Stand Alone Forms: Patient Portal Discharge page Print Language: Mauritanian Care Plan Goals: Mood and Behavioral Stabilization Abstinence from Substances Health Concerns: Mood and Behavioral Stabilization Abstinence from Substances Plan of Treatment: Attend scheduled appointments Take medications as directed Assessment: Denies SI,HI,AH,VH No sx of acute willis, psychosis Agrees with plan of care
[2024-09-06] MEDS: Lidocaine 4 % Patch ADH..PATCH 2 PATCH TRANSDERMA (08:46)
[2024-09-06] MEDS: QUEtiapine Fumarate 200 MG TABLET PO (08:46)
[2024-09-06] MEDS: Gabapentin 400 MG CAPSULE 1200 MG PO (08:46)
[2024-09-06] MEDS: clonazePAM 1 MG TABLET PO (08:46)
[2024-09-06] MEDS: QUEtiapine Fumarate 50 MG TABLET PO (08:46)
== END 2024-09-06 10:01 | disposition home or self-care (01) | DRG 754 ==
LOC: HO.ED 09-01 11:52 → HO.PM5 09-01 13:23
PROVIDERS: Physician Assistant; Admitting Provider Clinical Nurse Specialist Psychiatric/Mental Health, Adult; Emergency Provider Emergency Medicine Emergency Medical Services; PCP Internal Medicine; Visit Provider Clinical Nurse Specialist Psychiatric/Mental Health, Adult
DX: F32.A Depression, unspecified (principal); R45.851 Suicidal ideations; F43.12 Post-traumatic stress disorder, chronic; F19.10 Other psychoactive substance abuse, uncomplicated; Z20.822 Contact with and (suspected) exposure to COVID-19; Z23 Encounter for immunization; Z79.51 Long term (current) use of inhaled steroids; Z79.899 Other long term (current) drug therapy
CPT/HCPCS: 0241U; 36415; 80053; 80061; 80307; 81001; 82607; 82746; 83036; 83735; 84439; 84443; 85025; 87070; 87086; 87147; 90656; 90715; 93005; 94640; 99285; S9485

== ENCOUNTER → 2024-09-01 11:46 | Outpatient (BNV) | payer OTHER, SELFPAY | PROVIDERS: Admitting Provider Clinical Nurse Specialist Psychiatric/Mental Health, Adult; Emergency Provider Emergency Medicine Emergency Medical Services; PCP Internal Medicine; Visit Provider Internal Medicine Cardiovascular Disease | DX: R94.31 Abnormal electrocardiogram [ECG] [EKG] (principal) | CPT/HCPCS: 93010 ==

== ENCOUNTER → 2024-09-01 13:17 | Outpatient (BNV) | payer OTHER, SELFPAY | PROVIDERS: Admitting Provider Clinical Nurse Specialist Psychiatric/Mental Health, Adult; Emergency Provider Emergency Medicine Emergency Medical Services; PCP Internal Medicine; Visit Provider Clinical Nurse Specialist Psychiatric/Mental Health, Adult | DX: F43.12 Post-traumatic stress disorder, chronic (principal); F32.A Depression, unspecified; F19.10 Other psychoactive substance abuse, uncomplicated | CPT/HCPCS: 90792; 99232 ==

== ENCOUNTER 2025-03-22 16:44 | Inpatient (IN) | payer OTHER, SELFPAY ==
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
--- NOTE | ~2025-03-22 | XR_ITS ---
CLINICAL HISTORY: pt states bent finger 3 view right hand Comparison: None provided Findings: No acute fracture or dislocation is identified. Soft tissue structures appear within normal limits. IMPRESSION: No acute osseous abnormality is identified. This document has been electronically signed by: Nicole Tucker on 03/26/2025 12:15:15
--- NOTE | ~2025-03-22 | CT_ITS ---
CLINICAL HISTORY: Trauma; Tenderness; Base of Skull CT head without contrast Comparison: None provided Findings: No intra-axial mass, midline shift, hydrocephalus, or acute hemorrhage. No significant atrophy-like change or white matter disease. The visualized paranasal sinuses and mastoid air cells are normal. The orbits are within normal limits. There is no acute fracture. IMPRESSION: 1. No acute intracranial findings. This document has been electronically signed by: Elie Munoz MD on 03/22/2025 19:41:35
--- NOTE | ~2025-03-22 | CT_ITS ---
CLINICAL HISTORY: Trauma; Swelling CT cervical spine without contrast Comparison: None provided Findings: Vertebral alignment is within normal limits. No significant degenerative change. No acute fractures or dislocations. Visualized intracranial contents are unremarkable. Soft tissues of the neck are normal. No consolidation or effusion at the lung apices. IMPRESSION: No acute findings. This document has been electronically signed by: Elie Munoz MD on 03/22/2025 19:41:56
[2025-03-22 16:47] VITALS: BP 143/95; PULSE 85; O2SAT 98
[2025-03-22 17:02] VITALS: BP 161/100; PULSE 77; RESP 18; TEMP 36.8; O2SAT 90
[2025-03-22 17:23] VITALS: BP 161/100; PULSE 77; RESP 18; TEMP 36.8; O2SAT 90; BMI 29.2
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
[2025-03-22 18:04] LABS: MANUAL DIFF FLAG NO
[2025-03-22 18:09] LABS: Hematocrit 37.2 % (42.0-52.0); Hemoglobin 12.3 g/dl (14.0-18.0); Imm Gran Abs Auto 0.04 X10*3/uL (0.00-0.03); Imm Gran Pct Auto 0.4 % (0.0-0.4); Lymphocytes Absolute Auto 2.2 X10*3/uL (1.2-4.9); Mean Corpuscular HGB Conc 33.1 g/dl (31.0-36.0); Mean Corpuscular Hemoglobin 29.7 pg (27.0-33.0); Mean Corpuscular Volume 89.9 fL (80.0-98.0); NRBC Abs Auto 0.000 X10*3/uL (0.0-0.012); NRBC Pct Auto 0.0 /100WBC (0.0-0.2); Platelet Count 216 X10*3/uL (160-400); Red Blood Count 4.14 X10*6/uL (4.60-5.80); White Blood Count 11.3 X10*3/uL (4.8-10.8)
[2025-03-22 18:11] VITALS: BP 147/100; PULSE 60; RESP 20; TEMP 36.3; O2SAT 96
[2025-03-22 18:22] LABS: Alanine Aminotransferase 12 U/L (0-40); Albumin Level 4.3 g/dL (3.5-5.0); Alkaline Phosphatase 96 U/L (39-117); Anion Gap 14 (12-20); Aspartate Amino Transferase 42 U/L (5-37); Blood Urea Nitrogen 13 mg/dL (9-16); Calcium 8.9 mg/dL (8.4-10.2); Carbon Dioxide 29 mmol/L (22-29); Chloride 104 mmol/L (96-108); Creatinine Clr Calc Pharmacy 58.1; Estimated Glomerular Filt Rate 57; Potassium 3.6 mmol/L (3.3-5.1); Sodium 143 mmol/L (135-145); Total Protein 7.3 g/dL (6.5-8.0)
[2025-03-22 18:23] LABS: Acetaminophen LAB < 3 mcg/mL (<30); Salicylate < 5.0 mg/dL (15-30)
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
[2025-03-22 20:03] VITALS: BP 124/80; PULSE 75; RESP 14; O2SAT 94
[2025-03-22 22:10] VITALS: BP 139/89; PULSE 65; RESP 17; TEMP 36.5; O2SAT 94
--- NOTE | 2025-03-22 22:19 | MHC.CARE ---
Pt will be adult IPLOC. Section 12a in chart for safety
[2025-03-22 22:30] LABS: Appearance Urine Turbid; Glucose Urine UA Negative (Negative); PH 6.0 (5.0-9.0); Specific Gravity - Urine 1.025 (1.005-1.025); UMIC TRIGGER UACC YES
[2025-03-22 22:37] LABS: Cannabinoid Screen Urine Not Detected (Not Detect)
--- NOTE | 2025-03-22 22:37 | MHC.EDTECH ---
pt ambulated with a steady gait to bathroom
[2025-03-22 22:46] LABS: Other Crystals Urine Present
--- NOTE | 2025-03-23 | ECG_ITS ---
Test Reason : R/O QTC PROLONGATION Blood Pressure : */* mmHG Vent. Rate : 78 BPM Atrial Rate : 78 BPM P-R Int : 134 ms QRS Dur : 112 ms QT Int : 412 ms P-R-T Axes : 72 52 46 degrees QTcB Int : 469 ms Normal sinus rhythm Possible Left atrial enlargement Incomplete right bundle branch block Borderline ECG When compared with ECG of 01-Sep-2024 11:46, Incomplete right bundle branch block has replaced Right bundle branch block Referred By: Conrado Angelo Electronically Signed By: Patricio Wilcox
[2025-03-23 06:34] VITALS: RESP 16
--- NOTE | 2025-03-23 07:18 | PC.NURSE ---
Assumed care of patient at 0645, patient appears to be in no apparent distress this am, ambulating with steady gait around BH pod, calm and cooperative, offering no complaints to this RN. Continue plan of care for IPLOC
[2025-03-23 07:34] VITALS: BP 187/106; PULSE 84; RESP 20; TEMP 36.8; O2SAT 98
[2025-03-23 08:44] VITALS: BP 187/106
[2025-03-23] MEDS: NIFEdipine ER 60 MG TAB.ER.24 PO (08:44)
[2025-03-23] MEDS: methADONE HCl 20 MG/2 ML ORAL.CONC PO (08:44)
[2025-03-23 08:54] VITALS: BP 187/106; PULSE 84
[2025-03-23] MEDS: Metoprolol Succinate ER 50 MG TAB.ER.24H PO (08:54)
[2025-03-23 10:53] VITALS: BP 141/83; PULSE 82; RESP 20; TEMP 36.6; O2SAT 96
[2025-03-23] MEDS: Lidocaine 4 % Patch ADH..PATCH 1 PATCH TRANSDERMA (14:19)
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
[2025-03-23 19:35] VITALS: BP 152/92; PULSE 75; RESP 18; TEMP 36.8; O2SAT 99
[2025-03-24 07:15] VITALS: BP 158/92; PULSE 70; RESP 20; TEMP 36.9; O2SAT 99
[2025-03-24 07:28] VITALS: BP 158/92
[2025-03-24] MEDS: methADONE HCl 20 MG/2 ML ORAL.CONC 30 MG PO (07:50)
[2025-03-24 08:00] VITALS: PULSE 70
[2025-03-24] MEDS: Metoprolol Succinate ER 50 MG TAB.ER.24H PO (08:25)
[2025-03-24] MEDS: NIFEdipine ER 60 MG TAB.ER.24 PO (08:25)
[2025-03-24] MEDS: Lidocaine 4 % Patch ADH..PATCH 1 PATCH TRANSDERMA ×2 (08:28→11:15)
[2025-03-24 09:11] LABS: Hemoglobin A1C 122.0426 umol/L; Total Hemoglobin (HGBA1C) 3653.8361 umol/L
[2025-03-24 09:28] LABS: Alanine Aminotransferase 12 U/L (0-40); Albumin Level 4.6 g/dL (3.5-5.0); Alkaline Phosphatase 101 U/L (39-117); Anion Gap 14 (12-20); Aspartate Amino Transferase 30 U/L (5-37); Blood Urea Nitrogen 14 mg/dL (9-16); Calcium 10.0 mg/dL (8.4-10.2); Carbon Dioxide 26 mmol/L (22-29); Chloride 103 mmol/L (96-108); Cholesterol 187 mg/dL (<200); Creatinine Clr Calc Pharmacy 77.9; Estimated Glomerular Filt Rate > 60; HDL Cholesterol 65 mg/dL (>40); Potassium 4.1 mmol/L (3.3-5.1); Sodium 139 mmol/L (135-145); Total Protein 7.9 g/dL (6.5-8.0); Triglycerides 65 mg/dL (<150)
[2025-03-24 09:46] LABS: Free T4 (Free Thyroxine) 1.01 ng/dL (0.71-1.85); Thyroid Stimulating Hormone 0.57 uIU/mL (0.32-4.0)
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
[2025-03-24 19:30] VITALS: BP 173/113; PULSE 61; RESP 16; TEMP 36.8; O2SAT 99
[2025-03-24 20:38] VITALS: BP 160/100
[2025-03-24 22:28] VITALS: BP 118/78
[2025-03-25 07:46] VITALS: BP 164/108; PULSE 63; RESP 22; TEMP 36.5; O2SAT 94
[2025-03-25] MEDS: methADONE HCl 20 MG/2 ML ORAL.CONC 40 MG PO (08:01)
[2025-03-25] MEDS: NIFEdipine ER 60 MG TAB.ER.24 PO (08:28)
[2025-03-25] MEDS: Metoprolol Succinate ER 50 MG TAB.ER.24H PO (08:28)
[2025-03-25] MEDS: Lidocaine 4 % Patch ADH..PATCH 2 PATCH TRANSDERMA (08:31)
[2025-03-25 13:00] VITALS: BP 141/90
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
[2025-03-25 19:25] VITALS: BP 115/62; PULSE 56; RESP 16; TEMP 36.4; O2SAT 96
[2025-03-25 21:48] VITALS: BP 130/78
[2025-03-26] MEDS: methADONE HCl 20 MG/2 ML ORAL.CONC 40 MG PO (07:57)
[2025-03-26 08:00] VITALS: BP 158/92; PULSE 63; RESP 16; TEMP 36.6; O2SAT 98
[2025-03-26] MEDS: Metoprolol Succinate ER 50 MG TAB.ER.24H PO (08:52)
[2025-03-26] MEDS: NIFEdipine ER 60 MG TAB.ER.24 PO (08:53)
[2025-03-26] MEDS: Lidocaine 4 % Patch ADH..PATCH 2 PATCH TRANSDERMA (08:54)
[2025-03-26] MEDS: Lidocaine 4 % Patch ADH..PATCH 1 PATCH TRANSDERMA (11:17)
--- NOTE | 2025-03-26 14:09 | MHC.RECOVRN ---
Met w/ pt for a follow-up. Upon approach pt is calm and receptive to speaking with t/w. Pt stating he is feeling fantastic . Stated he hasn't felt this good in 10 years . Pt states pain and withdrawal are well managed. No methadone dose increase indicated at this time. Yael Gardner NP made aware.
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
[2025-03-26 20:00] VITALS: BP 136/82; PULSE 68; RESP 16; TEMP 36.6; O2SAT 96
[2025-03-27 07:30] VITALS: BP 130/83; PULSE 68; RESP 16; TEMP 37.2; O2SAT 98
[2025-03-27] MEDS: methADONE HCl 20 MG/2 ML ORAL.CONC 40 MG PO (07:56)
[2025-03-27 09:00] VITALS: BP 130/83
[2025-03-27] MEDS: NIFEdipine ER 60 MG TAB.ER.24 PO (09:00)
[2025-03-27 09:01] VITALS: BP 130/83
[2025-03-27] MEDS: Metoprolol Succinate ER 50 MG TAB.ER.24H PO (09:03)
[2025-03-27] MEDS: Lidocaine 4 % Patch ADH..PATCH 3 PATCH TRANSDERMA (09:19)
[2025-03-27 15:05] VITALS: BP 123/71
[2025-03-27] MEDS: methADONE HCl 20 MG/2 ML ORAL.CONC 10 MG PO (18:46)
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
[2025-03-27 20:00] VITALS: BP 101/62; PULSE 69; RESP 16; TEMP 37.1; O2SAT 97
[2025-03-28 07:27] VITALS: BP 112/69; PULSE 66; RESP 14; TEMP 36.7; O2SAT 97
[2025-03-28] MEDS: methADONE HCl 20 MG/2 ML ORAL.CONC 40 MG PO (07:55)
[2025-03-28] MEDS: NIFEdipine ER 60 MG TAB.ER.24 PO (08:33)
[2025-03-28] MEDS: Metoprolol Succinate ER 50 MG TAB.ER.24H PO (08:33)
[2025-03-28] MEDS: Lidocaine 4 % Patch ADH..PATCH 3 PATCH TRANSDERMA (08:37)
[2025-03-28] MEDS: methADONE HCl 20 MG/2 ML ORAL.CONC 10 MG PO (13:22)
[2025-03-28 20:32] VITALS: BP 117/73; PULSE 68; RESP 16; TEMP 36.8; O2SAT 94
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
[2025-03-29] MEDS: methADONE HCl 20 MG/2 ML ORAL.CONC 50 MG PO (07:53)
[2025-03-29 08:00] VITALS: BP 164/85; PULSE 79; RESP 16; TEMP 36.8; O2SAT 98
[2025-03-29] MEDS: NIFEdipine ER 60 MG TAB.ER.24 PO (08:26)
[2025-03-29] MEDS: Metoprolol Succinate ER 50 MG TAB.ER.24H PO (08:27)
[2025-03-29] MEDS: Lidocaine 4 % Patch ADH..PATCH 3 PATCH TRANSDERMA (08:27)
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
[2025-03-29] MEDS: Albuterol Sulfate 90 MCG 8 GM INHALER 2 PUFF INHALE (16:28)
[2025-03-29 19:30] VITALS: BP 113/69; PULSE 71; RESP 16; TEMP 36.8; O2SAT 94
[2025-03-29 21:42] VITALS: BP 116/68
[2025-03-30 07:00] VITALS: BMI 30.2
[2025-03-30 07:50] VITALS: BP 120/62; PULSE 70; RESP 18; TEMP 36.6; O2SAT 98
[2025-03-30] MEDS: methADONE HCl 20 MG/2 ML ORAL.CONC 50 MG PO (08:14)
[2025-03-30] MEDS: NIFEdipine ER 60 MG TAB.ER.24 PO (08:18)
[2025-03-30] MEDS: Metoprolol Succinate ER 50 MG TAB.ER.24H PO (08:19)
[2025-03-30] MEDS: Lidocaine 4 % Patch ADH..PATCH 3 PATCH TRANSDERMA (08:48)
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
[2025-03-30 19:21] VITALS: BP 123/76; PULSE 70; RESP 18; TEMP 37.1; O2SAT 95
[2025-03-30 20:54] VITALS: BP 105/70
[2025-03-31 07:44] VITALS: BP 121/74; PULSE 72; RESP 18; TEMP 36.5; O2SAT 98
[2025-03-31] MEDS: methADONE HCl 20 MG/2 ML ORAL.CONC 50 MG PO (07:51)
[2025-03-31] MEDS: NIFEdipine ER 60 MG TAB.ER.24 PO (08:35)
[2025-03-31] MEDS: Lidocaine 4 % Patch ADH..PATCH 3 PATCH TRANSDERMA (08:36)
[2025-03-31] MEDS: Metoprolol Succinate ER 50 MG TAB.ER.24H PO (08:36)
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
== END 2025-03-31 10:20 | disposition home or self-care (01) | DRG 754 ==
LOC: HO.ED 03-23 10:58 → HO.PADLT16 03-23 11:22
PROVIDERS: Admitting Provider Nurse Practitioner Psychiatric/Mental Health; Emergency Provider Internal Medicine; PCP Internal Medicine; Visit Provider Nurse Practitioner Psychiatric/Mental Health
DX: F32.A Depression, unspecified (principal); R45.851 Suicidal ideations; J44.9 Chronic obstructive pulmonary disease, unspecified; F43.12 Post-traumatic stress disorder, chronic; F11.20 Opioid dependence, uncomplicated; I10 Essential (primary) hypertension; Z79.51 Long term (current) use of inhaled steroids; Z79.899 Other long term (current) drug therapy
CPT/HCPCS: 36415; 70450; 71111; 72125; 73130; 80053; 80061; 80143; 80179; 80307; 81001; 83036; 84439; 84443; 85025; 93005; 99285; J1885; S9485

== ENCOUNTER → 2025-03-22 18:25 | Outpatient (BNV) | payer OTHER, SELFPAY | PROVIDERS: Emergency Provider Internal Medicine; PCP Internal Medicine; Visit Provider Radiology Diagnostic Radiology | DX: S19.9XXA Unspecified injury of neck, initial encounter (principal); S09.90XA Unspecified injury of head, initial encounter; R07.81 Pleurodynia | CPT/HCPCS: 70450; 71111; 72125 ==

== ENCOUNTER → 2025-03-23 07:45 | Outpatient (BNV) | payer OTHER, SELFPAY | PROVIDERS: Admitting Provider Nurse Practitioner Psychiatric/Mental Health; Emergency Provider Internal Medicine; PCP Internal Medicine; Visit Provider Internal Medicine Cardiovascular Disease | DX: I45.10 Unspecified right bundle-branch block (principal) | CPT/HCPCS: 93010 ==

== ENCOUNTER 2025-03-23 10:51 | Outpatient (BNV) | payer OTHER, SELFPAY | END 2025-03-26 10:03 | PROVIDERS: Admitting Provider Nurse Practitioner Psychiatric/Mental Health; Emergency Provider Internal Medicine; PCP Internal Medicine; Visit Provider Radiology Vascular & Interventional Radiology | DX: S69.91XA Unspecified injury of right wrist, hand and finger(s), initial encounter (principal); X50.1XXA Overexertion from prolonged static or awkward postures, initial encounter | CPT/HCPCS: 73130 ==

== ENCOUNTER → 2025-03-23 10:51 | Outpatient (BNV) | payer OTHER, SELFPAY | PROVIDERS: Admitting Provider Nurse Practitioner Psychiatric/Mental Health; Emergency Provider Internal Medicine; PCP Internal Medicine; Visit Provider Nurse Practitioner Psychiatric/Mental Health | DX: F32.2 Major depressive disorder, single episode, severe without psychotic features (principal); F19.10 Other psychoactive substance abuse, uncomplicated; F11.90 Opioid use, unspecified, uncomplicated; F43.12 Post-traumatic stress disorder, chronic; I10 Essential (primary) hypertension; J44.9 Chronic obstructive pulmonary disease, unspecified | CPT/HCPCS: 99231; 99232 ==

== ENCOUNTER 2025-07-29 10:22 | Inpatient (IN) | payer OTHER, SELFPAY ==
--- NOTE | ~2025-07-29 | XR_ITS ---
CLINICAL HISTORY: fall, lateral tenderness Radiographs of the left knee, 4 views Comparison: None available Findings: There is no acute fracture or dislocation. Well corticated 7 mm ossific fragment of the tip of the proximal fibula, chronic appearing. Contour abnormality of the proximal fibular metaphysis could be secondary to a healed fracture. No joint space narrowing. Trace patellofemoral compartment osteophytosis. No joint effusion. Soft tissue swelling. Vascular calcifications. Impression: No acute fracture or joint effusion. This document has been electronically signed by: Yolanda Kirby MD on 07/29/2025 13:22:56
--- NOTE | ~2025-07-29 | CT_ITS ---
CLINICAL HISTORY: fall with head strike CT head without contrast Comparison: CT/SR - CT HEAD/BRAIN WO IV CON - 03/22/25 18:39 EDT Findings: Image quality is degraded by patient motion with multiple scans obtained, some of which are not limited by motion. No acute hemorrhage. No extra-axial fluid collection. Cavum septum pellucidum et vergae, a normal variant. No hydrocephalus, mass-effect or herniation. Le-white differentiation is maintained. There is patchy hypoattenuation of the periventricular and deep white matter, which is most likely the sequela of moderate chronic small vessel ischemic disease and is similar to the prior study. No acute orbital pathology. Question left frontal scalp and nasal soft tissue swelling. Fracture of the base of the left nasal bone, new since the prior study. The visualized paranasal sinuses are predominantly clear. The mastoid air cells are clear. Impression: No acute intracranial findings. CT cervical spine without contrast Comparison: 03/22/25 Findings: Normal alignment. No fracture. 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 No severe central spinal canal stenosis. No epidural hematoma. Normal thickness of the prevertebral soft tissues. The lung apices are clear. Impression: No acute findings. This document has been electronically signed by: Yolanda Kirby MD on 07/29/2025 13:40:03
--- NOTE | ~2025-07-29 | XR_ITS ---
CLINICAL HISTORY: fall, lateral tenderness Radiographs of the left ankle, 3 views Comparison: None available Findings: There is no fracture or dislocation. The ankle mortise is congruent. Mild degenerative change. Soft tissue swelling. Impression: No fracture. This document has been electronically signed by: Yolanda Kirby MD on 07/29/2025 13:22:26
--- NOTE | ~2025-07-29 | CT_ITS ---
CLINICAL HISTORY: fall with head strike CT head without contrast Comparison: CT/SR - CT HEAD/BRAIN WO IV CON - 03/22/25 18:39 EDT Findings: Image quality is degraded by patient motion with multiple scans obtained, some of which are not limited by motion. No acute hemorrhage. No extra-axial fluid collection. Cavum septum pellucidum et vergae, a normal variant. No hydrocephalus, mass-effect or herniation. Le-white differentiation is maintained. There is patchy hypoattenuation of the periventricular and deep white matter, which is most likely the sequela of moderate chronic small vessel ischemic disease and is similar to the prior study. No acute orbital pathology. Question left frontal scalp and nasal soft tissue swelling. Fracture of the base of the left nasal bone, new since the prior study. The visualized paranasal sinuses are predominantly clear. The mastoid air cells are clear. Impression: No acute intracranial findings. This document has been electronically signed by: Yolanda Kirby MD on 07/29/2025 13:47:59
--- NOTE | ~2025-07-29 | XR_ITS ---
CLINICAL HISTORY: fall, midline tenderness Radiographs of the thoracic spine, 3 views Comparison: None available Findings: Trace dextrocurvature with the apex at T9/T10. No definitive acute fracture. There is mild multilevel vertebral body height loss with a chronic/degenerative appearance and large multilevel endplate osteophytosis. Predominantly moderate multilevel intervertebral disc space narrowing. The soft tissues are normal. Impression: No acute findings. Moderate degenerative change. This document has been electronically signed by: Yolanda Kirby MD on 07/29/2025 13:23:45
[2025-07-29 10:39] VITALS: BP 168/84; BP 174/110; PULSE 70; PULSE 74; RESP 16; TEMP 36.8; O2SAT 96; O2SAT 97; BMI 24.0
--- NOTE | 2025-07-29 10:41 | ED.GENADULT ---
HPI - General Adult General Chief complaint: Psychiatric Symptoms Stated complaint: fall /Si Time Seen by Provider: 07/29/25 10:41 Source: patient, EMS, RN notes reviewed and old records reviewed Mode of arrival: EMS Limitations: no limitations History of Present Illness ED Provider: Simin HPI narrative: Patient is a 59-year-old male with pmhx of OUD on methadone, polysubstance use disorder, diastolic dysfunction, COPD, HTN, PTSD, adjustment disorder, depression presenting to the emergency department after a fall at home. He states that he was going down the stairs and the top step is broken, he forgot and this caused him to fall down 10 steps. He reports positive head strike. Denies loss of consciousness. Now complaining of neck and upper back pain, left knee and ankle pain. Also notes that he was locked out of his house for 3 hours and this caused him to become suicidal with a plan to jump off the bridge in [place]. History of suicide attempt several years in the past. Denies any homicidal ideation, auditory or visual hallucinations. States that he did not picker and sorter load and unload his take home methadone today that he gets through [facility]. Denies any alcohol use. Not placed in c-collar by EMS prior to arrival. MD complaint: suicidal ideation, fall Related Data Home Medications ?Medication ?Instructions ?Recorded ?Confirmed albuterol sulfate 90 mcg/actuation 2 inh inhalation Q3-4H PRN Wheezing 09/01/24 07/29/25 aerosol inhaler (Ventolin HFA) lidocaine 4 % topical patch 1 patch topical DAILY 07/29/25 07/29/25 (Lidocaine Pain Relief) methadone 10 mg/mL oral 120 mg PO DAILY 07/29/25 07/29/25 concentrate (Methadone Intensol) Previous Rx's ?Medication ?Instructions ?Recorded clonazepam 1 mg tablet (Klonopin) 1 mg PO TID severe anxiety #90 03/30/25 tabs clonidine HCl 0.1 mg tablet 0.1 mg PO BID PRN anxiety #60 tabs 03/30/25 doxepin 100 mg capsule 100 mg PO BEDTIME insomnia 30 03/30/25 days #30 caps fluticasone propionate 50 1 spray intranasal DAILY Nasal 03/30/25 mcg/actuation nasal congestion/alllergy #16 grams spray,suspension gabapentin 800 mg tablet 1,200 mg (1.5 x 800 mg) PO TID 03/30/25 severe nerve pain 30 days #135 tabs hydroxyzine pamoate 50 mg capsule 50 mg PO TID anxiety #90 caps 03/30/25 losartan 100 mg tablet 100 mg PO DAILY elevated lipid 03/30/25 profile #30 tabs metoprolol succinate 50 mg 50 mg PO DAILY Cardicac #30 tabs 03/30/25 tablet,extended release 24 hr montelukast 10 mg tablet 10 mg PO DAILY COPD/asthma #30 03/30/25 tabs olanzapine 5 mg tablet 5 mg PO BID PRN agitation #60 tabs 03/30/25 quetiapine 200 mg tablet 400 mg (2 x 200 mg) PO BEDTIME 03/30/25 mood #60 tabs quetiapine 50 mg tablet (Seroquel) 50 mg PO TID Mood #90 tabs 03/30/25 trazodone 50 mg tablet 50 mg PO BEDTIME PRN Insomnia #30 03/30/25 tabs zolpidem 10 mg tablet (Ambien) 10 mg PO BEDTIME severe insomnia 03/30/25 #30 tabs Allergies Allergy/AdvReac Type Severity Reaction Status Date / Time ibuprofen (From Motrin) Allergy Abdominal Verified 07/29/25 10:44 Pain bee pollen (bee stings) AdvReac Severe Anaphylaxis Verified 07/29/25 10:44 Review of Systems Review of Systems: As per HPI Yes all other systems are reviewed and are negative Constitutional: Constitutional: Reports as per HPI [facility] Past Medical History Medical History Substance abuse Depression Adjustment disorder with mixed disturbance of emotions and conduct in remission Insomnia Chronic post-traumatic stress disorder (PTSD) Family History Family History Maternal Grandfather Heart problem Mother High blood pressure Social History Social History Household Members: Children Household Members Other:: Adult Son Housing: House Do you presently have visiting nurse or other home services: No Alcohol intake: current Alcohol intake frequency: holidays/special occasions only Patient Tobacco Use Status: Never used Tobacco Smoked in Last 30 Days: No e-Cigarette/Vaping Use: Never Used Second Hand Smoke Exposure: No Use of substances other than those prescribed or required for medical reasons: Yes Substance Use Type: Crack/Cocaine, Heroin and Methamphetamine Substance Use Frequency: Monthly Advance Directives: No Advance Directives Information Provided: Yes Do you have a plan to hurt others: No Plan service: No Sexual orientation: Straight/Heterosexual Physical Exam ED Vital Signs: Vital Signs - 24 hr 07/30/25 14:34 07/30/25 21:50 07/30/25 21:51 Temperature 97.5 F 97.6 F Pulse Rate 59 58 Respiratory Rate 14 16 Blood Pressure 153/97 H 155/91 H 155/91 H Pulse Oximetry 97 97 Oxygen Delivery Method Room Air Room Air 07/31/25 06:08 07/31/25 06:44 07/31/25 09:31 Temperature 97.8 F 98.1 F Pulse Rate 67 71 Respiratory Rate 16 18 Blood Pressure 140/83 H 140/83 H 121/78 Pulse Oximetry 96 97 Oxygen Delivery Method Room Air Room Air BMI result Body Mass Index 24.0 Vital signs have been reviewed and appear to be correct. Blood pressure elevated. Heart rate normal. Respiratory rate normal. Temperature normal. Oxygen saturation normal. Const General: cooperative, healthy appearing and no acute distress Orientation/consciousness: oriented to person, oriented to place, oriented to time and patient oriented x3 Limitations: no limitations HENMT Head: Yes normal to inspection and Yes normocephalic Ears: hearing grossly normal bilaterally, external ears normal, TM's normal bilaterally and EAC's normal General nose exam: Normal external nose present and Normal nasal mucous membranes and turbinates present Face and sinus: Yes face symmetric Mouth: oropharynx normal and moist mucous membranes Throat: Yes uvula midline Eyes Pupils: Equal, round and reactive pupils present Neck Neck: Yes normal visual inspection and Yes supple Resp Effort & Inspection: normal respiratory effort and able to speak in complete sentences Auscultation: clear to auscultation bilaterally Cardio Rate: regular rate Rhythm: regular rhythm Heart sounds: S1 normal heart sound present and S2 normal heart sound present GI Palpation (GI): Soft to palpation and nontender Auscultation: normoactive bowel sounds General: Yes no CVA tenderness Back/Spine/Pelvis Back: no CVA tenderness Cervical Spine: normal cervical lordosis and cervical ROM normal Thoracic/Lumbar Spine: thoracic and lumbar spine normal to inspection, Thoracic/lumbar spine scar(s), thoraco-lumbar ROM normal, pain with thoraco-lumbar ROM, thoracic spinal tenderness at T1 and at T2 and No lumbar spinal tenderness Pelvis: no pain with anterior-posterior compression and no pain with lateral compression Skin General skin exam: elasticity normal and turgor normal Neuro General: oriented to person, oriented to place, oriented to time, patient oriented x3, moves all extremities, no focal motor deficits and CN's II-XI intact bilaterally Cranial nerves: Yes Equal, round and reactive pupils present Cognition (Neuro): normal cognition Extrem General: Yes full ROM, Yes no pedal edema and Yes no calf tenderness Left lower extremity: knee Details: tenderness Location: of the proximal tibia Details: laterally, normal ROM, knee ligament exam normal and ecchymosis knee lateral Details: single and ankle Details: normal to inspection, tenderness Location: of the lateral malleolus, no edema and normal ROM; no swelling Psych Mental Status: mental status grossly normal Affect: normal affect Thought process: Normal thought process present Course Course Course Narrative: Time: 04:49 Date: 07/30/25 Provider: Jay Ruiz MD Patient in physician observation for psychiatric evaluation.? No acute events reported overnight. No current complaints. VS stable. Patient was evaluated by the care team , is on a section 12 and is an in bed search status. Will continue to monitor. Reevaluation(s) Reevaluation #1: Time: 06:20 Date: 07/31/25 Provider: Kimberly Rothman DO Patient in physician observation for psychiatric evaluation.? No acute events reported overnight. No current complaints. VS stable.? Patient is in bed search status. Will continue to monitor. Reevaluation #2: Time: : Date: 07/31/25 Provider: Kimberly Rothman DO Physician observation ended at 1222pm. Patient to be admitted as inpatient to psychiatry. Medications Administered Generic Name Dose Route Start Last Admin Trade Name Freq PRN Reason Stop Dose Admin Clonazepam 1 mg 07/29/25 21:15 07/31/25 09:04 Clonazepam 1 Mg Tablet PO 1 mg TID ELLIOT Administration Clonidine HCl 0.1 mg 07/29/25 21:04 07/31/25 06:08 Clonidine Hcl 0.1 Mg Tablet PO 0.1 mg BID PRN Administration Anxiety Protocol Doxepin HCl 100 mg 07/29/25 21:15 07/30/25 21:49 Doxepin Hcl 25 Mg Capsule PO 100 mg BEDTIME ELLIOT Administration Fluticasone Propionate 1 spray 07/30/25 09:00 07/31/25 09:09 Fluticasone Propionate Nasal 16 Gm [place] NOSTRIL-B 1 spray DAILY ELLIOT Administration Gabapentin 1,200 mg 07/29/25 21:15 07/31/25 09:04 Gabapentin 300 Mg Capsule PO 1,200 mg TID ELLIOT Administration Hydroxyzine HCl 50 mg 07/29/25 21:15 07/31/25 09:04 Hydroxyzine Hcl 50 Mg Tablet PO 50 mg TID ELLIOT Administration Lidocaine 1 patch 07/30/25 09:00 07/31/25 09:04 Lidocaine 4 % Patch Adh..Patch TRANSDERMA 1 patch DAILY ELLIOT Administration Protocol Losartan Potassium 100 mg 07/30/25 09:00 07/31/25 09:04 Losartan Potassium 50 Mg Tablet PO 100 mg DAILY ELLIOT Administration Protocol Methadone HCl 120 mg 07/30/25 11:00 07/31/25 09:10 Methadone Hcl 20 Mg/2 Ml Oral.Conc PO 120 mg DAILY ELLIOT Administration Metoprolol Succinate 50 mg 07/30/25 09:00 07/31/25 09:04 Metoprolol Succinate Er 50 Mg Tab.Er.24h PO 50 mg DAILY ELLIOT Administration Protocol Montelukast Sodium 10 mg 07/30/25 09:00 07/31/25 09:04 Montelukast Sodium 10 Mg Tablet PO 10 mg DAILY ELLIOT Administration Quetiapine Fumarate 400 mg 07/29/25 21:15 07/30/25 21:49 Quetiapine Fumarate 400 Mg Tablet PO 400 mg BEDTIME ELLIOT Administration Quetiapine Fumarate 50 mg 07/29/25 21:15 07/31/25 09:04 Quetiapine Fumarate 50 Mg Tablet PO 50 mg TID ELLIOT Administration Zolpidem Tartrate 10 mg 07/29/25 21:15 07/30/25 21:49 Zolpidem Tartrate 5 Mg Tablet PO 10 mg BEDTIME ELLIOT Administration Discontinued Medications Generic Name Dose Route Start Last Admin Trade Name Freq PRN Reason Stop Dose Admin Methadone HCl 120 mg 07/29/25 12:47 07/29/25 13:43 Methadone Hcl 20 Mg/2 Ml Oral.Conc PO 07/29/25 12:48 120 mg ONCE ONE Administration Medical Decision Making Medical Decision Making MDM Narrative: Patient is a 59-year-old male with pmhx of OUD on methadone, polysubstance use disorder, diastolic dysfunction, COPD, HTN, PTSD, adjustment disorder, depression presenting to the emergency department after a fall at home. On exam patient is awake, A+Ox3, VS WNL, afebrile, normal neurological exam without focal deficits, physical exam findings as above. Given reported symptoms and physical exam findings, initial differential includes but is not limited to ICH, skull or cervical vertebral fracture or subluxation, thoracic vertebral fracture or subluxation, left knee or ankle contusion, strain, sprain, fracture, depression, suicidal ideation, drug or alcohol intoxication or withdrawal. Labs grossly within normal limits. Urine drug screen positive for multiple substances. X-rays Left knee and ankle are without evidence of acute fracture. Thoracic x-ray without evidence of acute fracture or subluxation. CT Head and C-spine notable for no evidence of ICH, skull or cervical vertebral fracture or subluxation. My interpretation is in agreement with the radiologist's interpretation. patient medically cleared and placed on physician observation for care team observation. Per Guillermina from CARE team, patient will be inpatient bed search for suicidal ideation. Differential Diagnosis Differential Diagnoses: The differential diagnosis associated with the presentation includes as per [facility] Admission/Observation Consideration of admission/observation: Escalation of care including admission/observation considered Consult Healthcare Provider Management of the patient was discussed with: Behavioral Health Provider Lab Data [facility] Lab Attestation statement: I reviewed the patient's lab results. as per [facility] 07/29/25 11:24 07/29/25 11:24 Labs: Lab Results 07/29/25 07/29/25 Range/Units 10:56 11:24 WBC 8.5 (4.8-10.8) X10*3/uL RBC 3.79 L (4.60-5.80) X10*6/uL Hgb 11.3 L (14.0-18.0) g/dl Hct 32.8 L (42.0-52.0) % MCV 86.5 (80.0-98.0) fL MCH 29.8 (27.0-33.0) pg MCHC 34.5 (31.0-36.0) g/dl RDW 14.8 (11.0-16.0) % Plt Count 314 D (160-400) X10*3/uL MPV 9.2 L (9.4-12.4) fL Immature Gran % (Auto) 0.2 (0.0-0.4) % Neut % (Auto) 70.6 (45-73) % Lymph % (Auto) 16.3 L (20-40) % [place] % (Auto) 7.9 (2-11) % Eos % (Auto) 4.5 H (0-4) % Baso % (Auto) 0.5 (0-2) % Lymph # (Auto) 1.4 (1.2-4.9) X10*3/uL [place] # (Auto) 0.7 (0.1-1.2) X10*3/uL Eos # (Auto) 0.4 (0.0-0.4) X10*3/uL Baso # (Auto) 0.0 (0.0-0.2) X10*3/uL Abs Immat Gran (auto) 0.02 (0.00-0.03) X10*3/uL Absolute Neuts (auto) 6.0 (2.0-8.3) x10*3/uL Absolute Nucleated RBC 0.000 (0.0-0.012) X10*3/uL Nucleated RBC % (auto) 0.0 (0.0-0.2) /100WBC Sodium 141 (135-145) mmol/L Potassium 3.9 (3.3-5.1) mmol/L Chloride 109 H (96-108) mmol/L Carbon Dioxide 23 (22-29) mmol/L Anion Gap 13 (12-20) BUN 13 (9-16) mg/dL Creatinine 1.03 (0.5-1.4) mg/dL Estim Creat Clear Calc 73.0 Estimated GFR > 60 Random Glucose 95 (60-115) mg/dL Calcium 9.3 D (8.4-10.2) mg/dL Magnesium 1.9 (1.6-2.6) mg/dL Total Bilirubin 0.9 (0.0-1.0) mg/dL AST 20 (5-37) U/L ALT 6 (0-40) U/L Alkaline Phosphatase 70 (39-117) U/L Total Protein 6.7 (6.5-8.0) g/dL Albumin 4.3 (3.5-5.0) g/dL Urine Color Yellow Urine Appearance Clear Urine pH 6.5 (5.0-9.0) Ur Specific [place] 1.015 (1.005-1.025) Urine Protein Negative (Neg-Trace) mg/dL Urine Glucose (UA) Negative (Negative) mg/dL Urine Ketones Negative (Negative) mg/dL Urine Blood Negative (Negative) Urine Nitrite Negative (Negative) Ur Leukocyte Esterase Negative (Negative) Urine Opiates Screen POSITIVE H (Not Detect) Ur Buprenorphine Scrn Not Detected (Not Detect) ng/mL Ur Oxycodone Screen Not Detected (Not Detect) ng/mL Urine Methadone Screen Positive H (Not Detect) ng/mL Urine Fentanyl Screen POSITIVE H (Not Detect) Ur Barbiturates Screen Not Detected (Not Detect) Ur Phencyclidine Scrn POSITIVE H (Not Detect) Ur Amphetamines Screen Not Detected (Not Detect) U Benzodiazepines Scrn Not Detected (Not Detect) Urine Cocaine Screen POSITIVE H (Not Detect) U Marijuana (THC) Screen Not Detected (Not Detect) Ethyl Alcohol 14 mg/dL Influenza Type A (PCR) NEGATIVE (Negative) Influenza Type B (PCR) NEGATIVE (Negative) RSV RNA Qual (PCR) NEGATIVE (Negative) SARS-CoV-2 RNA (RT-PCR) NEGATIVE (Negative) Independent Interpretation I performed an independent interpretation of an: Plain X-Ray and CT Scan Interpretation: X-rays Left knee and ankle are without evidence of acute fracture. Thoracic x-ray without evidence of acute fracture or subluxation. CT Head and C-spine notable for no evidence of ICH, skull or cervical vertebral fracture or subluxation Radiology Impression Discussion of test interpretation with radiology: I have reviewed the radiologist's reading. Radiologist Impression: Radiographs of the left ankle, 3 views Comparison: None available Findings: There is no fracture or dislocation. The ankle mortise is congruent. Mild degenerative change. Soft tissue swelling. Impression: No fracture. Radiographs of the left knee, 4 views Comparison: None available Findings: There is no acute fracture or dislocation. Well corticated 7 mm ossific fragment of the tip of the proximal fibula, chronic appearing. Contour abnormality of the proximal fibular metaphysis could be secondary to a healed fracture. No joint space narrowing. Trace patellofemoral compartment osteophytosis. No joint effusion. Soft tissue swelling. Vascular calcifications. Impression: No acute fracture or joint effusion. Radiographs of the thoracic spine, 3 views Comparison: None available Findings: Trace dextrocurvature with the apex at T9/T10. No definitive acute fracture. There is mild multilevel vertebral body height loss with a chronic/degenerative appearance and large multilevel endplate osteophytosis. Predominantly moderate multilevel intervertebral disc space narrowing. The soft tissues are normal. Impression: No acute findings. Moderate degenerative change. CT head without contrast Comparison: CT/SR - CT HEAD/BRAIN WO IV CON - 03/22/25 18:39 EDT Findings: Image quality is degraded by patient motion with multiple scans obtained, some of which are not limited by motion. No acute hemorrhage. No extra-axial fluid collection. Cavum septum pellucidum et vergae, a normal variant. No hydrocephalus, mass-effect or herniation. Le-white differentiation is maintained. There is patchy hypoattenuation of the periventricular and deep white matter, which is most likely the sequela of moderate chronic small vessel ischemic disease and is similar to the prior study. No acute orbital pathology. Question left frontal scalp and nasal soft tissue swelling. Fracture of the base of the left nasal bone, new since the prior study. The visualized paranasal sinuses are predominantly clear. The mastoid air cells are clear. Impression: No acute intracranial findings. CT cervical spine without contrast Comparison: 03/22/25 Findings: Normal alignment. No fracture. 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 No severe central spinal canal stenosis. No epidural hematoma. Normal thickness of the prevertebral soft tissues. The lung apices are clear. Impression: No acute findings. External Record Review External record reviewed: Inpatient record, Office record and Outpatient record Discharge Plan Discharge Clinical Impression: Suicidal ideation, Polysubstance use disorder, Contusion of left knee, Fall down stairs Patient Disposition: Admitted As Inpatient Additional Instructions: You were seen in our Emergency Department today for treatment of a behavioral health issue. It is important after your visit that you follow up with either your behavioral health provider or a primary care doctor within 7 days.? If you have trouble finding a therapist you can reach out to [address] [phone] The National Suicide and Crisis Lifeline can be reached 7 days a week 24 hours a day.? Call 988 to speak with someone.? Return for any worsening symptoms or concerns such as thoughts of self harm or harm to others. Please call 911 if you feel your mental health is worsening.? Interventions: [place]-Suicide Risk Severity Scale Last Done: 07/31/25 07:17 Print Language: Welsh
--- NOTE | 2025-07-29 10:42 | ECG_ITS ---
Test Reason : FALL Blood Pressure : */* mmHG Vent. Rate : 71 BPM Atrial Rate : 71 BPM P-R Int : 138 ms QRS Dur : 108 ms QT Int : 422 ms P-R-T Axes : 58 -3 19 degrees QTcB Int : 458 ms Normal sinus rhythm Normal ECG When compared with ECG of 23-Mar-2025 07:45, ST no longer elevated in Anterior leads Referred By: Buffy Duval Electronically Signed By: Patricio Wilcox
[2025-07-29 10:45] VITALS: BP 168/84; PULSE 70; RESP 16; TEMP 36.8; O2SAT 96
[2025-07-29 11:03] LABS: Appearance Urine Clear; Glucose Urine UA Negative (Negative); PH 6.5 (5.0-9.0); Specific Gravity - Urine 1.015 (1.005-1.025)
[2025-07-29 11:18] LABS: Cannabinoid Screen Urine Not Detected (Not Detect)
[2025-07-29 11:29] LABS: Hematocrit 32.8 % (42.0-52.0); Hemoglobin 11.3 g/dl (14.0-18.0); Imm Gran Abs Auto 0.02 X10*3/uL (0.00-0.03); Imm Gran Pct Auto 0.2 % (0.0-0.4); Lymphocytes Absolute Auto 1.4 X10*3/uL (1.2-4.9); MANUAL DIFF FLAG NO; Mean Corpuscular HGB Conc 34.5 g/dl (31.0-36.0); Mean Corpuscular Hemoglobin 29.8 pg (27.0-33.0); Mean Corpuscular Volume 86.5 fL (80.0-98.0); NRBC Abs Auto 0.000 X10*3/uL (0.0-0.012); NRBC Pct Auto 0.0 /100WBC (0.0-0.2); Platelet Count 314 X10*3/uL (160-400); Red Blood Count 3.79 X10*6/uL (4.60-5.80); White Blood Count 8.5 X10*3/uL (4.8-10.8)
[2025-07-29 11:42] LABS: Alanine Aminotransferase 6 U/L (0-40); Albumin Level 4.3 g/dL (3.5-5.0); Alkaline Phosphatase 70 U/L (39-117); Anion Gap 13 (12-20); Aspartate Amino Transferase 20 U/L (5-37); Blood Urea Nitrogen 13 mg/dL (9-16); Calcium 9.3 mg/dL (8.4-10.2); Carbon Dioxide 23 mmol/L (22-29); Chloride 109 mmol/L (96-108); Creatinine Clr Calc Pharmacy 73.0; Estimated Glomerular Filt Rate > 60; Magnesium 1.9 mg/dL (1.6-2.6); Potassium 3.9 mmol/L (3.3-5.1); Sodium 141 mmol/L (135-145); Total Protein 6.7 g/dL (6.5-8.0)
[2025-07-29 12:09] LABS: Resp Syncy Virus RNA Qual PCR NEGATIVE (Negative); SARS COV2 PCR INHOUSE NEGATIVE (Negative)
--- NOTE | 2025-07-29 13:26 | HE.PHANOTE ---
Re Methadone Pt receives 120mg from [facility] [employer]. Last dose was 07/24/25 and they got 6 take home bottles.
[2025-07-29] MEDS: methADONE HCl 20 MG/2 ML ORAL.CONC 120 MG PO (13:43)
--- NOTE | 2025-07-29 14:15 | MHC.CARE ---
Pt be will adult IPLOC. Section 12a in chart for safety.
--- NOTE | 2025-07-29 16:10 | PC.NURSE ---
RN to RN jassi Rose. Pt moved to Pod
[2025-07-29 18:31] VITALS: BP 174/109; PULSE 69; RESP 16; TEMP 36.2; O2SAT 98
--- NOTE | 2025-07-29 21:24 | PHA.MEDREC ---
Pharmacy Consult ? Medication Reconciliation Pharmacy has reviewed the medication reconciliation completed by nursing.
--- NOTE | 2025-07-29 22:14 | PC.NURSE ---
Assumed care at 1845. Patient visible on the POD, watching tv. Medicated per OCT. No PRN's utilized. No apparent distress noted. Continue plan of care.
[2025-07-30] VITALS (7 sets, daily range): BP systolic 134–155; BP diastolic 91–97; PULSE 58–83; RESP 14–20; TEMP 36.4–36.7; O2SAT 96–98
[2025-07-30] MEDS: Metoprolol Succinate ER 50 MG TAB.ER.24H PO (09:07)
[2025-07-30] MEDS: Lidocaine 4 % Patch ADH..PATCH 1 PATCH TRANSDERMA (09:09)
--- NOTE | 2025-07-30 10:10 | PC.NURSE ---
Care of Pt assumed at change of shift (0700.) Pt is awake and watching TV early this AM. Pt eats breakfast without issue. AM med pass completed; Pt takes medication whole with water. Will consult with re: Pts methadone order. No order for today present. Pt continues to rest quietly.
[2025-07-30] MEDS: methADONE HCl 20 MG/2 ML ORAL.CONC 120 MG PO (11:07)
--- NOTE | 2025-07-30 22:24 | PC.NURSE ---
Assumed care at 1845. Patient reports anxious mood. C/o 5/10 pain to L mid back. No prior patch found. Requested additional Lidocaine patch and states he prefers the patch over PO medications. MD Ovalle made aware of patient request, awaiting order. Given hot pack for comfort. Provided liquid/snacks. Adherent to HS scheduled medications. Utilized PRN Clonidine for anxiety. Agreeable to alert staff if feeling unsafe. Will continue to monitor for safety.
[2025-07-31 06:08] VITALS: BP 140/83
--- NOTE | 2025-07-31 06:18 | PC.NURSE ---
Patient woke up requesting food/snacks. Requested a medication for anxiety. Utilized PRN Clonidine, pending effectiveness.
[2025-07-31 06:44] VITALS: BP 140/83; PULSE 67; RESP 16; TEMP 36.6; O2SAT 96
--- NOTE | 2025-07-31 07:15 | PC.NURSE ---
Assumed care of patient at 0645, patient appears to be in no apparent distress this am, calm and cooperative, resting in chair in room eating breakfast. Continue plan of care for inpatient bedsearch
[2025-07-31] MEDS: Metoprolol Succinate ER 50 MG TAB.ER.24H PO (09:04)
[2025-07-31] MEDS: Lidocaine 4 % Patch ADH..PATCH 1 PATCH TRANSDERMA (09:04)
[2025-07-31] MEDS: methADONE HCl 20 MG/2 ML ORAL.CONC 120 MG PO (09:10)
[2025-07-31 09:31] VITALS: BP 121/78; PULSE 71; RESP 18; TEMP 36.7; O2SAT 97
--- NOTE | 2025-07-31 13:57 | PHA.MEDREC ---
Pharmacy Consult ? Medication Reconciliation Pharmacy has reviewed the medication reconciliation completed by nursing. Confirmed pt is still taking nifedipine, this was added to the med list.
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
[2025-07-31 16:01] VITALS: BP 104/84; PULSE 58; RESP 16; O2SAT 100
[2025-07-31 16:02] VITALS: BMI 25.2
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
--- NOTE | 2025-07-31 17:30 | PC.NURSE ---
RN attempted to wake pt three times for flu vaccine, however pt was asleep and snoring soundly.
[2025-07-31 20:00] VITALS: BP 124/70; PULSE 69; RESP 20; TEMP 37.2; O2SAT 96
[2025-08-01 08:07] VITALS: BP 113/81; PULSE 75; RESP 16; TEMP 36.2; O2SAT 96
[2025-08-01 08:36] LABS: Alanine Aminotransferase 14 U/L (0-40); Albumin Level 4.2 g/dL (3.5-5.0); Alkaline Phosphatase 78 U/L (39-117); Anion Gap 11 (12-20); Aspartate Amino Transferase 37 U/L (5-37); Blood Urea Nitrogen 34 mg/dL (9-16); Calcium 9.4 mg/dL (8.4-10.2); Carbon Dioxide 31 mmol/L (22-29); Chloride 102 mmol/L (96-108); Cholesterol 164 mg/dL (<200); Creatinine Clr Calc Pharmacy 68.4; Estimated Glomerular Filt Rate > 60; HDL Cholesterol 50 mg/dL (>40); Potassium 4.6 mmol/L (3.3-5.1); Sodium 139 mmol/L (135-145); Total Protein 6.6 g/dL (6.5-8.0); Triglycerides 160 mg/dL (<150)
--- NOTE | 2025-08-01 08:46 | MHC.CLN ---
CONSULT HT 67 WT 73KG IBW 148#+/-10% BMI 25 PT IS 108% IBW RANGE INDICATES ADEQUATE WT FOR HT PT REPORTS 15# WT LOSS R/T POOR PO ALSO NOTED COCAINE AND HEROIN USE WHICH WILL CAUSE DECREASED PO INTAKE PREVIOUS WT HX 76.2KG (06/23/25) PT WITH 4% NON SIGNIFICANT WT CHANGE X 1 YEAR REGULAR DIET MONITOR PO INTAKE PT WITH LOW NUTRITION RISK CONTINUE CURRENT CARE PLAN
[2025-08-01] MEDS: methADONE HCl 20 MG/2 ML ORAL.CONC 120 MG PO (09:06)
[2025-08-01] MEDS: NIFEdipine ER 60 MG TAB.ER.24 PO (09:14)
[2025-08-01] MEDS: Metoprolol Succinate ER 50 MG TAB.ER.24H PO (09:14)
[2025-08-01] MEDS: Lidocaine 4 % Patch ADH..PATCH 2 PATCH TRANSDERMA (09:24)
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
--- NOTE | 2025-08-01 13:44 | P.PNPSI_ITS ---
Subjective Subjective Date of Service: 08/01/25 Reason For Visit: SI Subjective Notes: Conditional Voluntary Interim History: Patient reports feeling better today; he reports no longer feeling suicidal. denies HI/VH/AH. Per nursing, pt observed sedated throughout the evening yesterday and this morning. Gabapentin decreased to 900mg PO TID and Seroquel 50mg PO TID DC'd; pt aware his medications were decreased d/t sedation level and is understanding. Patient reports he is sedated d/t not sleeping well the past 3 nights , he does not believe it is from his medications. Will continue to monitor sedation level, if continues heavily sedated, plan to continue tapering sedating medications. Continue tx plan. Medication Compliance: Yes Side effects from medications: No Mental Status Exam Mental Status Exam Patient Appearance: Appropriate Patient Orientation: Person, Place, Time and Situation Level of Consciousness: Sedated Patient Behavior: Cooperative Mood Description: Calm Affect Description: Calm Ability to Follow Directions: Good Speech Pattern: Clear Memory Description: Intact Hallucinations: None Delusions: Not Present Thought Process: Intact Thought Content: positive for Intact Diagnostics Vital Signs (24Hr): Vital Signs - 24 hr 07/31/25 16:01 07/31/25 20:00 08/01/25 08:07 Temperature 98.9 F 97.1 F Pulse Rate 58 69 75 Respiratory Rate 16 20 16 Blood Pressure 104/84 124/70 113/81 Pulse Oximetry 100 96 96 Oxygen Delivery Method Room Air Room Air Room Air BMI result Body Mass Index 25.2 Labs 07/29/25 11:24 08/01/25 08:05 Labs: Laboratory Results - last 48 hr 08/01/25 08:05 Sodium 139 Potassium 4.6 Chloride 102 Carbon Dioxide 31 H Anion Gap 11 L BUN 34 H Creatinine 1.10 Estim Creat Clear Calc 68.4 Estimated GFR > 60 Random Glucose 93 Estimat Average Glucose 105 Hemoglobin A1c % 5.3 Calcium 9.4 Total Bilirubin 0.2 AST 37 ALT 14 Alkaline Phosphatase 78 Total Protein 6.6 Albumin 4.2 Triglycerides 160 H Cholesterol 164 LDL Cholesterol, Calc 82 HDL Cholesterol 50 Medications Medications Current Medications Acetaminophen (Acetaminophen 325 Mg Tablet) 650 mg PO Q6H PRN PRN Reason: Headache/Pain, Scale 1-10 Last Admin: 07/31/25 20:51 Dose: 650 mg Al Hydroxide/Mg Hydroxide (Magnesium Hydrox/Alum Hydrox 30 Ml Oral.Susp) 30 ml PO Q6H PRN PRN Reason: Heartburn/Nausea Albuterol Sulfate (Albuterol Sulfate 90 Mcg 8 Gm Inhaler) 2 puff INHALE Q3H PRN PRN Reason: Wheezing Clonazepam (Clonazepam 1 Mg Tablet) 1 mg PO TID [facility] Last Admin: 08/01/25 10:08 Dose: Not Given Clonidine HCl (Clonidine Hcl 0.1 Mg Tablet) 0.1 mg PO BID PRN; Protocol PRN Reason: Anxiety Last Admin: 07/31/25 06:08 Dose: 0.1 mg Doxepin HCl (Doxepin Hcl 25 Mg Capsule) 100 mg PO BEDTIME [facility] Last Admin: 07/31/25 20:54 Dose: 100 mg Fluticasone Propionate (Fluticasone Propionate Nasal 16 Gm [place]) 1 spray NOSTRIL-B DAILY [facility] Last Admin: 08/01/25 10:09 Dose: Not Given Gabapentin (Gabapentin 300 Mg Capsule) 900 mg PO TID [facility] Hydroxyzine HCl (Hydroxyzine Hcl 50 Mg Tablet) 50 mg PO TID [facility] Last Admin: 08/01/25 10:09 Dose: Not Given Lidocaine (Lidocaine 4 % Patch Adh..Patch) 2 patch TRANSDERMA DAILY [facility]; Protocol Last Admin: 08/01/25 09:24 Dose: 2 patch Losartan Potassium (Losartan Potassium 50 Mg Tablet) 100 mg PO DAILY [facility]; Protocol Last Admin: 08/01/25 09:14 Dose: 100 mg Magnesium Hydroxide (Milk Of Magnesia 30 Ml Oral.Susp) 30 ml PO DAILY PRN PRN Reason: Constipation Methadone HCl (Methadone Hcl 20 Mg/2 Ml Oral.Conc) 120 mg PO DAILY [facility] Last Admin: 08/01/25 09:06 Dose: 120 mg Metoprolol Succinate (Metoprolol Succinate Er 50 Mg Tab.Er.24h) 50 mg PO DAILY [facility]; Protocol Last Admin: 08/01/25 09:14 Dose: 50 mg Montelukast Sodium (Montelukast Sodium 10 Mg Tablet) 10 mg PO DAILY [facility] Last Admin: 08/01/25 09:14 Dose: 10 mg Nifedipine (Nifedipine Er 60 Mg Tab.Er.24) 60 mg PO DAILY [facility] Last Admin: 08/01/25 09:14 Dose: 60 mg Olanzapine (Olanzapine 5 Mg Tablet) 5 mg PO BID PRN PRN Reason: agitation Last Admin: 08/01/25 03:20 Dose: 5 mg Quetiapine Fumarate (Quetiapine Fumarate 400 Mg Tablet) 400 mg PO BEDTIME [facility] Last Admin: 07/31/25 20:53 Dose: 400 mg Zolpidem Tartrate (Zolpidem Tartrate 5 Mg Tablet) 10 mg PO BEDTIME [facility] Last Admin: 07/31/25 20:52 Dose: 10 mg Allergies Allergies Allergy/AdvReac Type Severity Reaction Status Date / Time ibuprofen (From Motrin) Allergy Abdominal Verified 07/29/25 10:44 Pain bee pollen (bee stings) AdvReac Severe Anaphylaxis Verified 07/29/25 10:44 Assessment & Plan Assessment & Plan (1) MDD (major depressive disorder), recurrent episode: Status: Acute Code(s): F33.9 - Major depressive disorder, recurrent, unspecified (2) Chronic post-traumatic stress disorder (PTSD): Status: Acute Code(s): F43.12 - Post-traumatic stress disorder, chronic (3) Opioid use disorder: Status: Acute Code(s): F11.90 - Opioid use, unspecified, uncomplicated (4) Cocaine use disorder: Status: Acute Code(s): F14.90 - Cocaine use, unspecified, uncomplicated (5) Polysubstance use disorder: Status: Acute Code(s): F19.90 - Other psychoactive substance use, unspecified, uncomplicated Plan Patient is a 59 year old male with hx of MDD, PTSD, opioid use d/o, cocaine use d/o who presented to ER via ambulance d/t suicidal ideation with a plan to jump off the [facility] secondary to increased depression and chronic pain. Plan: CV 15 minute safety checks Continue home medications Obtain collateral Referral to outpatient therapist Encourage groups Discharge planning 08/01: Patient reports feeling better today; he reports no longer feeling suicidal. denies HI/VH/AH. Per nursing, pt observed sedated throughout the evening yesterday and this morning. Gabapentin decreased to 900mg PO TID and Seroquel 50mg PO TID DC'd; pt aware his medications were decreased d/t sedation level and is understanding. Patient reports he is sedated d/t not sleeping well the past 3 nights , he does not believe it is from his medications. Will continue to monitor sedation level, if continues heavily sedated, plan to continue tapering sedating medications. Continue tx plan Patient educated on: diagnosis and medication risk/benefits Reason for continued inpatient stay Substantial Risk for: med/psych decompensation Time Spent With Patient Time: Total time managing care of this patient today _20___ minutes.
[2025-08-01 21:19] VITALS: BP 117/66; PULSE 69; RESP 16; TEMP 36.4; O2SAT 98
[2025-08-02 08:00] VITALS: BP 103/57; PULSE 63; RESP 18; TEMP 36.6; O2SAT 98
[2025-08-02] MEDS: methADONE HCl 20 MG/2 ML ORAL.CONC 120 MG PO (08:14)
[2025-08-02 08:21] VITALS: BP 103/57; PULSE 63
[2025-08-02] MEDS: Metoprolol Succinate ER 50 MG TAB.ER.24H PO (08:21)
[2025-08-02] MEDS: NIFEdipine ER 60 MG TAB.ER.24 PO (08:21)
[2025-08-02] MEDS: Lidocaine 4 % Patch ADH..PATCH 2 PATCH TRANSDERMA (08:23)
--- NOTE | 2025-08-02 10:54 | HO.PSYCHPN ---
Subjective Subjective Date of Service: 08/02/25 Reason For Visit: SI Subjective Notes: Conditional Voluntary Interim History: Active on unit. Patient continues to report feeling depressed today but states he is feeling better everyday . He reports sleeping well last night. denies SI/HI/VH/AH. Less sedated today. encouraged to attend groups. Continue tx plan. Medication Compliance: Yes Side effects from medications: No Mental Status Exam Mental Status Exam Patient Appearance: Appropriate Patient Orientation: Person, Place, Time and Situation Level of Consciousness: Awake Patient Behavior: Appropriate, Cooperative and Good Eye Contact Mood Description: Depressed Affect Description: Calm Ability to Follow Directions: Good Speech Pattern: Clear Memory Description: Intact Hallucinations: None Delusions: Not Present Thought Process: Intact Thought Content: positive for Intact Diagnostics Vital Signs (24Hr): Vital Signs - 24 hr 08/01/25 21:19 08/02/25 08:00 08/02/25 08:21 Temperature 97.6 F 97.9 F Pulse Rate 69 63 Respiratory Rate 16 18 Blood Pressure 117/66 103/57 L 103/57 L Pulse Oximetry 98 98 Oxygen Delivery Method Room Air Room Air 08/02/25 08:21 08/02/25 08:21 Temperature Pulse Rate 63 Respiratory Rate Blood Pressure 103/57 L 103/57 L Pulse Oximetry Oxygen Delivery Method BMI result Body Mass Index 25.2 Labs 07/29/25 11:24 08/01/25 08:05 Labs: Laboratory Results - last 48 hr 08/01/25 08:05 Sodium 139 Potassium 4.6 Chloride 102 Carbon Dioxide 31 H Anion Gap 11 L BUN 34 H Creatinine 1.10 Estim Creat Clear Calc 68.4 Estimated GFR > 60 Random Glucose 93 Estimat Average Glucose 105 Hemoglobin A1c % 5.3 Calcium 9.4 Total Bilirubin 0.2 AST 37 ALT 14 Alkaline Phosphatase 78 Total Protein 6.6 Albumin 4.2 Triglycerides 160 H Cholesterol 164 LDL Cholesterol, Calc 82 HDL Cholesterol 50 Medications Medications Current Medications Acetaminophen (Acetaminophen 325 Mg Tablet) 650 mg PO Q6H PRN PRN Reason: Headache/Pain, Scale 1-10 Last Admin: 08/02/25 08:22 Dose: 650 mg Al Hydroxide/Mg Hydroxide (Magnesium Hydrox/Alum Hydrox 30 Ml Oral.Susp) 30 ml PO Q6H PRN PRN Reason: Heartburn/Nausea Albuterol Sulfate (Albuterol Sulfate 90 Mcg 8 Gm Inhaler) 2 puff INHALE Q3H PRN PRN Reason: Wheezing Clonazepam (Clonazepam 1 Mg Tablet) 1 mg PO TID [facility] Last Admin: 08/02/25 08:22 Dose: 1 mg Clonidine HCl (Clonidine Hcl 0.1 Mg Tablet) 0.1 mg PO BID PRN; Protocol PRN Reason: Anxiety Last Admin: 07/31/25 06:08 Dose: 0.1 mg Doxepin HCl (Doxepin Hcl 25 Mg Capsule) 100 mg PO BEDTIME [facility] Last Admin: 08/01/25 22:04 Dose: 100 mg Fluticasone Propionate (Fluticasone Propionate Nasal 16 Gm [place]) 1 spray NOSTRIL-B DAILY [facility] Last Admin: 08/02/25 10:13 Dose: Not Given Gabapentin (Gabapentin 300 Mg Capsule) 900 mg PO TID [facility] Last Admin: 08/02/25 08:21 Dose: 900 mg Hydroxyzine HCl (Hydroxyzine Hcl 50 Mg Tablet) 50 mg PO TID [facility] Last Admin: 08/02/25 08:22 Dose: 50 mg Lidocaine (Lidocaine 4 % Patch Adh..Patch) 2 patch TRANSDERMA DAILY [facility]; Protocol Last Admin: 08/02/25 08:23 Dose: 2 patch Losartan Potassium (Losartan Potassium 50 Mg Tablet) 100 mg PO DAILY [facility]; Protocol Last Admin: 08/02/25 08:21 Dose: 100 mg Magnesium Hydroxide (Milk Of Magnesia 30 Ml Oral.Susp) 30 ml PO DAILY PRN PRN Reason: Constipation Methadone HCl (Methadone Hcl 20 Mg/2 Ml Oral.Conc) 120 mg PO DAILY [facility] Last Admin: 08/02/25 08:14 Dose: 120 mg Metoprolol Succinate (Metoprolol Succinate Er 50 Mg Tab.Er.24h) 50 mg PO DAILY [facility]; Protocol Last Admin: 08/02/25 08:21 Dose: 50 mg Montelukast Sodium (Montelukast Sodium 10 Mg Tablet) 10 mg PO DAILY [facility] Last Admin: 08/02/25 08:21 Dose: 10 mg Nifedipine (Nifedipine Er 60 Mg Tab.Er.24) 60 mg PO DAILY [facility] Last Admin: 08/02/25 08:21 Dose: 60 mg Olanzapine (Olanzapine 5 Mg Tablet) 5 mg PO BID PRN PRN Reason: agitation Last Admin: 08/01/25 03:20 Dose: 5 mg Quetiapine Fumarate (Quetiapine Fumarate 400 Mg Tablet) 400 mg PO BEDTIME [facility] Last Admin: 08/01/25 22:04 Dose: 400 mg Zolpidem Tartrate (Zolpidem Tartrate 5 Mg Tablet) 10 mg PO BEDTIME [facility] Last Admin: 08/01/25 22:03 Dose: 10 mg Allergies Allergies Allergy/AdvReac Type Severity Reaction Status Date / Time ibuprofen (From Motrin) Allergy Abdominal Verified 07/29/25 10:44 Pain bee pollen (bee stings) AdvReac Severe Anaphylaxis Verified 07/29/25 10:44 Assessment & Plan Assessment & Plan (1) MDD (major depressive disorder), recurrent episode: Status: Acute Code(s): F33.9 - Major depressive disorder, recurrent, unspecified (2) Chronic post-traumatic stress disorder (PTSD): Status: Acute Code(s): F43.12 - Post-traumatic stress disorder, chronic (3) Opioid use disorder: Status: Acute Code(s): F11.90 - Opioid use, unspecified, uncomplicated (4) Cocaine use disorder: Status: Acute Code(s): F14.90 - Cocaine use, unspecified, uncomplicated (5) Polysubstance use disorder: Status: Acute Code(s): F19.90 - Other psychoactive substance use, unspecified, uncomplicated Plan Patient is a 59 year old male with hx of MDD, PTSD, opioid use d/o, cocaine use d/o who presented to ER via ambulance d/t suicidal ideation with a plan to jump [place] the [facility] bridge secondary to increased depression and chronic pain. Plan: CV 15 minute safety checks Continue home medications Obtain collateral Referral to outpatient therapist Encourage groups Discharge planning 08/01: Patient reports feeling better today; he reports no longer feeling suicidal. denies HI/VH/AH. Per nursing, pt observed sedated throughout the evening yesterday and this morning. Gabapentin decreased to 900mg PO TID and Seroquel 50mg PO TID DC'd; pt aware his medications were decreased d/t sedation level and is understanding. Patient reports he is sedated d/t not sleeping well the past 3 nights , he does not believe it is from his medications. Will continue to monitor sedation level, if continues heavily sedated, plan to continue tapering sedating medications. Continue tx plan 08/02: Active on unit. Patient continues to report feeling depressed today but states he is feeling better everyday . He reports sleeping well last night. denies SI/HI/VH/AH. Less sedated today. encouraged to attend groups. Continue tx plan. Patient educated on: diagnosis, medication risk/benefits and therapeutic strategies Reason for continued inpatient stay Substantial Risk for: med/psych decompensation Time Spent With Patient Time: Total time managing care of this patient today _20___ minutes.
[2025-08-02 20:00] VITALS: BP 119/76; PULSE 69; RESP 16; TEMP 36.6; O2SAT 96
[2025-08-03 07:00] VITALS: BMI 27.3
[2025-08-03] MEDS: methADONE HCl 20 MG/2 ML ORAL.CONC 120 MG PO (07:55)
[2025-08-03 08:45] VITALS: BP 121/70; PULSE 72; RESP 18; TEMP 36.6; O2SAT 94
[2025-08-03] MEDS: Metoprolol Succinate ER 50 MG TAB.ER.24H PO (08:57)
[2025-08-03] MEDS: NIFEdipine ER 60 MG TAB.ER.24 PO (08:57)
[2025-08-03] MEDS: Lidocaine 4 % Patch ADH..PATCH 2 PATCH TRANSDERMA (09:04)
--- NOTE | 2025-08-03 10:22 | P.PNPSI_ITS ---
Subjective Subjective Date of Service: 08/03/25 Reason For Visit: SI Subjective Notes: Conditional Voluntary Interim History: Patient was seen and discussed in rounds today. Records and plans were reviewed. He is eating and sleeping adequately. Endorses depression and anxiety. No complaints or side effects. No SI. No changes were made today Review of Systems Review of Systems Yes all other systems are reviewed and are negative Mental Status Exam Mental Status Exam Patient Appearance: Appropriate Patient Orientation: Person, Place, Time and Situation Level of Consciousness: Awake Patient Behavior: Appropriate, Cooperative and Good Eye Contact Mood Description: Depressed Affect Description: Calm Ability to Follow Directions: Good Speech Pattern: Clear Memory Description: Intact Hallucinations: None Delusions: Not Present Thought Process: Intact Thought Content: positive for Intact Diagnostics Vital Signs (24Hr): Vital Signs - 24 hr 08/02/25 20:00 08/03/25 08:45 Temperature 97.9 F 97.8 F Pulse Rate 69 72 Respiratory Rate 16 18 Blood Pressure 119/76 121/70 Pulse Oximetry 96 94 Oxygen Delivery Method Room Air Room Air BMI result Body Mass Index 27.3 Labs 07/29/25 11:24 08/01/25 08:05 Medications Medications Current Medications Acetaminophen (Acetaminophen 325 Mg Tablet) 650 mg PO Q6H PRN PRN Reason: Headache/Pain, Scale 1-10 Last Admin: 08/02/25 21:03 Dose: 650 mg Al Hydroxide/Mg Hydroxide (Magnesium Hydrox/Alum Hydrox 30 Ml Oral.Susp) 30 ml PO Q6H PRN PRN Reason: Heartburn/Nausea Albuterol Sulfate (Albuterol Sulfate 90 Mcg 8 Gm Inhaler) 2 puff INHALE Q3H PRN PRN Reason: Wheezing Clonazepam (Clonazepam 1 Mg Tablet) 1 mg PO TID [facility] Last Admin: 08/03/25 08:57 Dose: 1 mg Clonidine HCl (Clonidine Hcl 0.1 Mg Tablet) 0.1 mg PO BID PRN; Protocol PRN Reason: Anxiety Last Admin: 07/31/25 06:08 Dose: 0.1 mg Doxepin HCl (Doxepin Hcl 25 Mg Capsule) 100 mg PO BEDTIME [facility] Last Admin: 08/02/25 21:02 Dose: 100 mg Fluticasone Propionate (Fluticasone Propionate Nasal 16 Gm [place]) 1 spray NOSTRIL-B DAILY [facility] Last Admin: 08/03/25 08:56 Dose: 1 spray Gabapentin (Gabapentin 300 Mg Capsule) 900 mg PO TID [facility] Last Admin: 08/03/25 08:57 Dose: 900 mg Hydroxyzine HCl (Hydroxyzine Hcl 50 Mg Tablet) 50 mg PO TID [facility] Last Admin: 08/03/25 08:57 Dose: 50 mg Lidocaine (Lidocaine 4 % Patch Adh..Patch) 2 patch TRANSDERMA DAILY [facility]; Protocol Last Admin: 08/03/25 09:04 Dose: 2 patch Losartan Potassium (Losartan Potassium 50 Mg Tablet) 100 mg PO DAILY [facility]; Protocol Last Admin: 08/03/25 08:57 Dose: 100 mg Magnesium Hydroxide (Milk Of Magnesia 30 Ml Oral.Susp) 30 ml PO DAILY PRN PRN Reason: Constipation Methadone HCl (Methadone Hcl 20 Mg/2 Ml Oral.Conc) 120 mg PO DAILY [facility] Last Admin: 08/03/25 07:55 Dose: 120 mg Metoprolol Succinate (Metoprolol Succinate Er 50 Mg Tab.Er.24h) 50 mg PO DAILY [facility]; Protocol Last Admin: 08/03/25 08:57 Dose: 50 mg Montelukast Sodium (Montelukast Sodium 10 Mg Tablet) 10 mg PO DAILY [facility] Last Admin: 08/03/25 08:57 Dose: 10 mg Nifedipine (Nifedipine Er 60 Mg Tab.Er.24) 60 mg PO DAILY [facility] Last Admin: 08/03/25 08:57 Dose: 60 mg Olanzapine (Olanzapine 5 Mg Tablet) 5 mg PO BID PRN PRN Reason: agitation Last Admin: 08/01/25 03:20 Dose: 5 mg Quetiapine Fumarate (Quetiapine Fumarate 400 Mg Tablet) 400 mg PO BEDTIME [facility] Last Admin: 08/02/25 21:03 Dose: 400 mg Zolpidem Tartrate (Zolpidem Tartrate 5 Mg Tablet) 10 mg PO BEDTIME [facility] Last Admin: 08/02/25 21:02 Dose: 10 mg Allergies Allergies Allergy/AdvReac Type Severity Reaction Status Date / Time ibuprofen (From Motrin) Allergy Abdominal Verified 07/29/25 10:44 Pain bee pollen (bee stings) AdvReac Severe Anaphylaxis Verified 07/29/25 10:44 Assessment & Plan Assessment & Plan (1) MDD (major depressive disorder), recurrent episode: Status: Acute Code(s): F33.9 - Major depressive disorder, recurrent, unspecified (2) Chronic post-traumatic stress disorder (PTSD): Status: Acute Code(s): F43.12 - Post-traumatic stress disorder, chronic (3) Opioid use disorder: Status: Acute Code(s): F11.90 - Opioid use, unspecified, uncomplicated (4) Cocaine use disorder: Status: Acute Code(s): F14.90 - Cocaine use, unspecified, uncomplicated (5) Polysubstance use disorder: Status: Acute Code(s): F19.90 - Other psychoactive substance use, unspecified, uncomplicated Plan Patient is a 59 year old male with hx of MDD, PTSD, opioid use d/o, cocaine use d/o who presented to ER via ambulance d/t suicidal ideation with a plan to jump off the [facility] bridge secondary to increased depression and chronic pain. Plan: CV 15 minute safety checks Continue home medications Obtain collateral Referral to outpatient therapist Encourage groups Discharge planning 08/01: Patient reports feeling better today; he reports no longer feeling suicidal. denies HI/VH/AH. Per nursing, pt observed sedated throughout the evening yesterday and this morning. Gabapentin decreased to 900mg PO TID and Seroquel 50mg PO TID DC'd; pt aware his medications were decreased d/t sedation level and is understanding. Patient reports he is sedated d/t not sleeping well the past 3 nights , he does not believe it is from his medications. Will continue to monitor sedation level, if continues heavily sedated, plan to continue tapering sedating medications. Continue tx plan 08/02: Active on unit. Patient continues to report feeling depressed today but states he is feeling better everyday . He reports sleeping well last night. denies SI/HI/VH/AH. Less sedated today. encouraged to attend groups. Continue tx plan. Reason for continued inpatient stay Substantial Risk for: med/psych decompensation Time Spent With Patient Time: Total time managing care of this patient today ____ minutes.
[2025-08-03 11:30] VITALS: BP 122/79
[2025-08-03 21:10] VITALS: BP 102/72; PULSE 95
[2025-08-04] MEDS: methADONE HCl 20 MG/2 ML ORAL.CONC 120 MG PO (08:25)
[2025-08-04 09:00] VITALS: BP 112/57; PULSE 60; RESP 16; TEMP 36.7; O2SAT 96
[2025-08-04 09:33] VITALS: BP 112/57; PULSE 60
[2025-08-04] MEDS: Metoprolol Succinate ER 50 MG TAB.ER.24H PO (09:33)
[2025-08-04 09:34] VITALS: BP 112/57
[2025-08-04] MEDS: NIFEdipine ER 60 MG TAB.ER.24 PO (09:34)
[2025-08-04] MEDS: Lidocaine 4 % Patch ADH..PATCH 2 PATCH TRANSDERMA (09:37)
--- NOTE | 2025-08-04 12:40 | P.PNPSI_ITS ---
Subjective Subjective Date of Service: 08/04/25 Reason For Visit: SI Interim History: Met with patient; discussed with team; reviewed chart Patient reports that he is feeling better. He says this time this time of year is always difficult for him given it is the anniversary of the deaths of several beloved people. Patient denies any SI saying it is fully resolved and depression getting better. He just needed some time to sort his feelings. Patient wanted to discuss medications. He says that he has been on gabapentin 1200 mg t.i.d. and higher dose of Seroquel for quite awhile and both have significantly helped with his pain and stability. Sales Clerk Supervisor discussed staff's concern that he was sedated. Patient reiterated that he was only tired because he had not slept for about 3 days prior to this admission and was catching up on sleep. Patient agreed to titrating back these medications expecting that he will be able to demonstrate he can tolerate them without being sedated. Sales Clerk Supervisor agreed to increase Seroquel to 25 mg t.i.d. (normally on 50 mg t.i.d.) Sales Clerk Supervisor agreed to increasing bedtime gabapentin dose to 1200 mg (will leave the daytime gabapentin doses at 900 mg which can be increased if patient can tolerate Mental Status Exam Mental Status Exam Narrative: Pt is alert and oriented; behavior is cooperative, friendly and calm; patient is not in distress; dressed in casual attire with unkempt hair but adequate hygiene; mood is described as better and affect congruent; eye contact appropriate; Speech is normal rate, volume and prosody and not pressured; no psychomotor agitation/retardation present; thought process is organized and goal directed; Thought content is on tx; otherwise pertinent to relevant topics and without any delusional content, paranoid ideations or grandiosity; denies any SI/HI. Denies AVH and there is no evidence of perceptual disturbance. Patients insight and judgment appear intact. Diagnostics Vital Signs (24Hr): Vital Signs - 24 hr 08/03/25 21:10 08/04/25 09:00 08/04/25 09:33 Temperature 98.1 F Pulse Rate 95 60 60 Respiratory Rate 16 Blood Pressure 102/72 112/57 L 112/57 L Pulse Oximetry 96 Oxygen Delivery Method Room Air 08/04/25 09:33 08/04/25 09:34 Temperature Pulse Rate Respiratory Rate Blood Pressure 112/57 L 112/57 L Pulse Oximetry Oxygen Delivery Method BMI result Body Mass Index 27.3 Labs 07/29/25 11:24 08/01/25 08:05 Medications Medications Current Medications Acetaminophen (Acetaminophen 325 Mg Tablet) 650 mg PO Q6H PRN PRN Reason: Headache/Pain, Scale 1-10 Last Admin: 08/04/25 05:50 Dose: 650 mg Al Hydroxide/Mg Hydroxide (Magnesium Hydrox/Alum Hydrox 30 Ml Oral.Susp) 30 ml PO Q6H PRN PRN Reason: Heartburn/Nausea Albuterol Sulfate (Albuterol Sulfate 90 Mcg 8 Gm Inhaler) 2 puff INHALE Q3H PRN PRN Reason: Wheezing Clonazepam (Clonazepam 1 Mg Tablet) 1 mg PO TID [facility] Last Admin: 08/04/25 09:33 Dose: 1 mg Clonidine HCl (Clonidine Hcl 0.1 Mg Tablet) 0.1 mg PO BID PRN; Protocol PRN Reason: Anxiety Last Admin: 08/03/25 21:25 Dose: 0.1 mg Doxepin HCl (Doxepin Hcl 25 Mg Capsule) 100 mg PO BEDTIME [facility] Last Admin: 08/03/25 21:14 Dose: 100 mg Fluticasone Propionate (Fluticasone Propionate Nasal 16 Gm [place]) 1 spray NOSTRIL-B DAILY [facility] Last Admin: 08/04/25 10:24 Dose: 1 spray Gabapentin (Gabapentin 300 Mg Capsule) 900 mg PO TID [facility] Last Admin: 08/04/25 09:33 Dose: 900 mg Hydroxyzine HCl (Hydroxyzine Hcl 50 Mg Tablet) 50 mg PO TID [facility] Last Admin: 08/04/25 09:33 Dose: 50 mg Lidocaine (Lidocaine 4 % Patch Adh..Patch) 2 patch TRANSDERMA DAILY [facility]; Protocol Last Admin: 08/04/25 09:37 Dose: 2 patch Losartan Potassium (Losartan Potassium 50 Mg Tablet) 100 mg PO DAILY [facility]; Protocol Last Admin: 08/04/25 09:33 Dose: 100 mg Magnesium Hydroxide (Milk Of Magnesia 30 Ml Oral.Susp) 30 ml PO DAILY PRN PRN Reason: Constipation Methadone HCl (Methadone Hcl 20 Mg/2 Ml Oral.Conc) 120 mg PO DAILY [facility] Last Admin: 08/04/25 08:25 Dose: 120 mg Metoprolol Succinate (Metoprolol Succinate Er 50 Mg Tab.Er.24h) 50 mg PO DAILY [facility]; Protocol Last Admin: 08/04/25 09:33 Dose: 50 mg Montelukast Sodium (Montelukast Sodium 10 Mg Tablet) 10 mg PO DAILY [facility] Last Admin: 08/04/25 09:33 Dose: 10 mg Nifedipine (Nifedipine Er 60 Mg Tab.Er.24) 60 mg PO DAILY [facility] Last Admin: 08/04/25 09:34 Dose: 60 mg Olanzapine (Olanzapine 5 Mg Tablet) 5 mg PO BID PRN PRN Reason: agitation Last Admin: 08/03/25 21:25 Dose: 5 mg Quetiapine Fumarate (Quetiapine Fumarate 400 Mg Tablet) 400 mg PO BEDTIME [facility] Last Admin: 08/03/25 21:14 Dose: 400 mg Allergies Allergies Allergy/AdvReac Type Severity Reaction Status Date / Time ibuprofen (From Motrin) Allergy Abdominal Verified 07/29/25 10:44 Pain bee pollen (bee stings) AdvReac Severe Anaphylaxis Verified 07/29/25 10:44 Assessment & Plan Assessment & Plan (1) MDD (major depressive disorder), recurrent episode: Status: Acute Code(s): F33.9 - Major depressive disorder, recurrent, unspecified (2) Chronic post-traumatic stress disorder (PTSD): Status: Acute Code(s): F43.12 - Post-traumatic stress disorder, chronic (3) Opioid use disorder: Status: Acute Code(s): F11.90 - Opioid use, unspecified, uncomplicated (4) Cocaine use disorder: Status: Acute Code(s): F14.90 - Cocaine use, unspecified, uncomplicated (5) Polysubstance use disorder: Status: Acute Code(s): F19.90 - Other psychoactive substance use, unspecified, uncomplicated Plan Patient is a 59 year old male with hx of MDD, PTSD, opioid use d/o, cocaine use d/o who presented to ER via ambulance d/t suicidal ideation with a plan to jump off the [facility] bridge secondary to increased depression and chronic pain. 08/01: Patient reports feeling better today; he reports no longer feeling suicidal. denies HI/VH/AH. Per nursing, pt observed sedated throughout the evening yesterday and this morning. Gabapentin decreased to 900mg PO TID and Seroquel 50mg PO TID DC'd; pt aware his medications were decreased d/t sedation level and is understanding. Patient reports he is sedated d/t not sleeping well the past 3 nights , he does not believe it is from his medications. Will continue to monitor sedation level, if continues heavily sedated, plan to continue tapering sedating medications. Continue tx plan 08/02: Active on unit. Patient continues to report feeling depressed today but states he is feeling better everyday . He reports sleeping well last night. denies SI/HI/VH/AH. Less sedated today. encouraged to attend groups. Continue tx plan. 08/04 Patient reports that he is feeling better. He says this time this time of year is always difficult for him given it is the anniversary of the deaths of several beloved people. Patient denies any SI saying it is fully resolved and depression getting better. He just needed some time to sort his feelings. Patient wanted to discuss medications. He says that he has been on gabapentin 1200 mg t.i.d. and higher dose of Seroquel for quite awhile and both have significantly helped with his pain and stability. Sales Clerk Supervisor discussed staff's concern that he was sedated. Patient reiterated that he was only tired because he had not slept for about 3 days prior to this admission and was catching up on sleep. Patient agreed to titrating back these medications expecting that he will be able to demonstrate he can tolerate them without being sedated. Sales Clerk Supervisor agreed to increase Seroquel to 25 mg t.i.d. (normally on 50 mg t.i.d.) Sales Clerk Supervisor agreed to increasing bedtime gabapentin dose to 1200 mg (will leave the daytime gabapentin doses at 900 mg which can be increased if patient can tolerate Medications: Start Seroquel 25 mg t.i.d. (normally 50 mg t.i.d.) Continue Seroquel 400 mg q.h.s. Increase bedtime dose of gabapentin to 1200 mg -provider can increase gabapentin to 1200 mg t.i.d. as patient tolerates CV 15 minute safety checks Continue home medications Obtain collateral Referral to outpatient therapist Encourage groups Discharge planning Patient educated on: diagnosis, medication risk/benefits and therapeutic strategies Informed Consent: understands Reason for continued inpatient stay Substantial Risk for: rapid decompensation Time Spent With Patient Time: Total time managing care of this patient today ____ minutes.
[2025-08-04 20:00] VITALS: BP 130/76; PULSE 64; RESP 16; TEMP 36.3; O2SAT 95
[2025-08-05] MEDS: methADONE HCl 20 MG/2 ML ORAL.CONC 120 MG PO (07:52)
[2025-08-05 08:10] VITALS: BP 134/78; PULSE 71; RESP 16; TEMP 36.7; O2SAT 97
[2025-08-05] MEDS: Metoprolol Succinate ER 50 MG TAB.ER.24H PO (08:26)
[2025-08-05] MEDS: NIFEdipine ER 60 MG TAB.ER.24 PO (08:26)
[2025-08-05] MEDS: Lidocaine 4 % Patch ADH..PATCH 2 PATCH TRANSDERMA (08:35)
--- NOTE | 2025-08-05 18:49 | P.PNPSI_ITS ---
Subjective Subjective Date of Service: 08/05/25 Reason For Visit: SI Subjective Notes: Conditional Voluntary Healthcare Proxy: No Guardianship: No Medical Problems Affecting Mental Status: No Interim History: Medical record and nursing notes reviewed; case discussed during rounds with team/nursing staff, and met with patient for supportive therapy/psychoeducation, as well as medication management. Patient has been visible, attended groups, social with peers and staff and being appropriate. No sedation observed. Denies SI/SIB/HI/AVH. He is happy with current regimens and feeling less anxious or depressed. Patient says he is ready to go home and asks when he will be discharged. He got annoyed by one of male peers but able to stay away from this peer. Compliant with meds, no side effects. no sedation, slept for 7 hours. Medication Compliance: Yes Side effects from medications: No Attending Groups: Yes Review of Systems Acute medical concerns: No Medical Review of Systems: unchanged Review of Systems Review of Systems No complaint. Yes all other systems are reviewed and are negative Mental Status Exam Mental Status Exam Narrative: A+O x3, wearing hospital attire, No ADL's issues. Speech is WNL, no manic behavior. No SI/SIB/HI/AVH. Fair judgment and insight. Less irritable, anxious and depressed. Organized. Diagnostics Vital Signs (24Hr): Vital Signs - 24 hr 08/04/25 20:00 08/05/25 08:10 Temperature 97.4 F 98.0 F Pulse Rate 64 71 Respiratory Rate 16 16 Blood Pressure 130/76 134/78 Pulse Oximetry 95 97 Oxygen Delivery Method Room Air Room Air BMI result Body Mass Index 27.3 Labs 07/29/25 11:24 08/01/25 08:05 Medications Medications Current Medications Acetaminophen (Acetaminophen 325 Mg Tablet) 650 mg PO Q6H PRN PRN Reason: Headache/Pain, Scale 1-10 Last Admin: 08/04/25 05:50 Dose: 650 mg Al Hydroxide/Mg Hydroxide (Magnesium Hydrox/Alum Hydrox 30 Ml Oral.Susp) 30 ml PO Q6H PRN PRN Reason: Heartburn/Nausea Albuterol Sulfate (Albuterol Sulfate 90 Mcg 8 Gm Inhaler) 2 puff INHALE Q3H PRN PRN Reason: Wheezing Clonazepam (Clonazepam 1 Mg Tablet) 1 mg PO TID [facility] Last Admin: 08/05/25 15:32 Dose: 1 mg Clonidine HCl (Clonidine Hcl 0.1 Mg Tablet) 0.1 mg PO BID PRN; Protocol PRN Reason: Anxiety Last Admin: 08/03/25 21:25 Dose: 0.1 mg Doxepin HCl (Doxepin Hcl 25 Mg Capsule) 100 mg PO BEDTIME [facility] Last Admin: 08/04/25 20:43 Dose: 100 mg Fluticasone Propionate (Fluticasone Propionate Nasal 16 Gm [place]) 1 spray NOSTRIL-B DAILY [facility] Last Admin: 08/05/25 08:24 Dose: 1 spray Gabapentin (Gabapentin 300 Mg Capsule) 900 mg PO TID [facility] Last Admin: 08/05/25 15:32 Dose: 900 mg Gabapentin (Gabapentin 300 Mg Capsule) 300 mg PO BEDTIME [facility] Last Admin: 08/04/25 20:45 Dose: 300 mg Hydroxyzine HCl (Hydroxyzine Hcl 50 Mg Tablet) 50 mg PO TID [facility] Last Admin: 08/05/25 15:32 Dose: 50 mg Lidocaine (Lidocaine 4 % Patch Adh..Patch) 2 patch TRANSDERMA DAILY [facility]; Protocol Last Admin: 08/05/25 08:35 Dose: 2 patch Losartan Potassium (Losartan Potassium 50 Mg Tablet) 100 mg PO DAILY [facility]; Protocol Last Admin: 08/05/25 08:26 Dose: 100 mg Magnesium Hydroxide (Milk Of Magnesia 30 Ml Oral.Susp) 30 ml PO DAILY PRN PRN Reason: Constipation Methadone HCl (Methadone Hcl 20 Mg/2 Ml Oral.Conc) 120 mg PO DAILY [facility] Last Admin: 08/05/25 07:52 Dose: 120 mg Metoprolol Succinate (Metoprolol Succinate Er 50 Mg Tab.Er.24h) 50 mg PO DAILY [facility]; Protocol Last Admin: 08/05/25 08:26 Dose: 50 mg Montelukast Sodium (Montelukast Sodium 10 Mg Tablet) 10 mg PO DAILY [facility] Last Admin: 08/05/25 08:26 Dose: 10 mg Nifedipine (Nifedipine Er 60 Mg Tab.Er.24) 60 mg PO DAILY [facility] Last Admin: 08/05/25 08:26 Dose: 60 mg Olanzapine (Olanzapine 5 Mg Tablet) 5 mg PO BID PRN PRN Reason: agitation Last Admin: 08/03/25 21:25 Dose: 5 mg Quetiapine Fumarate (Quetiapine Fumarate 400 Mg Tablet) 400 mg PO BEDTIME [facility] Last Admin: 08/04/25 20:43 Dose: 400 mg Quetiapine Fumarate (Quetiapine Fumarate 25 Mg Tablet) 25 mg PO TID [facility] Last Admin: 08/05/25 15:32 Dose: 25 mg Zolpidem Tartrate (Zolpidem Tartrate 5 Mg Tablet) 10 mg PO BEDTIME [facility] Last Admin: 08/04/25 22:08 Dose: 10 mg Allergies Allergies Allergy/AdvReac Type Severity Reaction Status Date / Time ibuprofen (From Motrin) Allergy Abdominal Verified 07/29/25 10:44 Pain bee pollen (bee stings) AdvReac Severe Anaphylaxis Verified 07/29/25 10:44 Assessment & Plan Assessment & Plan (1) MDD (major depressive disorder), recurrent episode: Status: Acute Code(s): F33.9 - Major depressive disorder, recurrent, unspecified (2) Chronic post-traumatic stress disorder (PTSD): Status: Acute Code(s): F43.12 - Post-traumatic stress disorder, chronic (3) Opioid use disorder: Status: Acute Code(s): F11.90 - Opioid use, unspecified, uncomplicated (4) Cocaine use disorder: Status: Acute Code(s): F14.90 - Cocaine use, unspecified, uncomplicated (5) Polysubstance use disorder: Status: Acute Code(s): F19.90 - Other psychoactive substance use, unspecified, uncomplicated Plan Patient is a 59 year old male with hx of MDD, PTSD, opioid use d/o, cocaine use d/o who presented to ER via ambulance d/t suicidal ideation with a plan to jump off the [facility] bridge secondary to increased depression and chronic pain. 08/01: Patient reports feeling better today; he reports no longer feeling suicidal. denies HI/VH/AH. Per nursing, pt observed sedated throughout the evening yesterday and this morning. Gabapentin decreased to 900mg PO TID and Seroquel 50mg PO TID DC'd; pt aware his medications were decreased d/t sedation level and is understanding. Patient reports he is sedated d/t not sleeping well the past 3 nights , he does not believe it is from his medications. Will continue to monitor sedation level, if continues heavily sedated, plan to continue tapering sedating medications. Continue tx plan 08/02: Active on unit. Patient continues to report feeling depressed today but states he is feeling better everyday . He reports sleeping well last night. denies SI/HI/VH/AH. Less sedated today. encouraged to attend groups. Continue tx plan. 08/04 Patient reports that he is feeling better. He says this time this time of year is always difficult for him given it is the anniversary of the deaths of several beloved people. Patient denies any SI saying it is fully resolved and depression getting better. He just needed some time to sort his feelings. Patient wanted to discuss medications. He says that he has been on gabapentin 1200 mg t.i.d. and higher dose of Seroquel for quite awhile and both have significantly helped with his pain and stability. Educational Advisor discussed staff's concern that he was sedated. Patient reiterated that he was only tired because he had not slept for about 3 days prior to this admission and was catching up on sleep. Patient agreed to titrating back these medications expecting that he will be able to demonstrate he can tolerate them without being sedated. Educational Advisor agreed to increase Seroquel to 25 mg t.i.d. (normally on 50 mg t.i.d.) Educational Advisor agreed to increasing bedtime gabapentin dose to 1200 mg (will leave the daytime gabapentin doses at 900 mg which can be increased if patient can tolerate 08/05/25: Patient has been visible, attended groups, social with peers and staff and being appropriate. No sedation observed. Denies SI/SIB/HI/AVH. He is happy with current regimens and feeling less anxious or depressed. Patient says he is ready to go home and asks when he will be discharged. He got annoyed by one of male peers but able to stay away from this peer. Compliant with meds, no side effects. no sedation, slept for 7 hours. Continue with current plan. Ambien renewed: was dropped which patient was irritable last night. Medications: Start Seroquel 25 mg t.i.d. (normally 50 mg t.i.d.) Continue Seroquel 400 mg q.h.s. Increase bedtime dose of gabapentin to 1200 mg -provider can increase gabapentin to 1200 mg t.i.d. as patient tolerates CV 15 minute safety checks Continue home medications Obtain collateral Referral to outpatient therapist Encourage groups Discharge planning Patient educated on: diagnosis, medication risk/benefits, substance abuse and therapeutic strategies Informed Consent: understands and further education needed Reason for continued inpatient stay Substantial Risk for: med/psych decompensation Time Spent With Patient Time: Total time managing care of this patient today ____ minutes.
[2025-08-05 20:00] VITALS: BP 107/71; PULSE 65; RESP 16; TEMP 36.9; O2SAT 95
[2025-08-06] MEDS: methADONE HCl 20 MG/2 ML ORAL.CONC 120 MG PO (07:50)
[2025-08-06 08:18] VITALS: BP 121/71; PULSE 67; RESP 16; TEMP 36.4; O2SAT 97
[2025-08-06] MEDS: Metoprolol Succinate ER 50 MG TAB.ER.24H PO (08:21)
[2025-08-06] MEDS: NIFEdipine ER 60 MG TAB.ER.24 PO (08:21)
[2025-08-06] MEDS: Lidocaine 4 % Patch ADH..PATCH 2 PATCH TRANSDERMA (08:22)
[2025-08-06] MEDS: Flu Vacc TS2025-26(6mo up)/PF 0.5 ML SYRINGE IM (13:32)
--- NOTE | 2025-08-06 18:20 | HO.PSYCHPN ---
Subjective Subjective Date of Service: 08/06/25 Reason For Visit: SI Subjective Notes: Bunch Warning and Conditional Voluntary Healthcare Proxy: No Guardianship: No Medical Problems Affecting Mental Status: No Interim History: Medical record and nursing notes reviewed; case discussed during rounds with team/nursing staff, and met with patient for supportive therapy/psychoeducation, as well as medication management. Visible, social and appropriate, helpful with some peers on the unit. Request Flu Vaccine. Wants clothes to be washed which patient was asked to touch base with nursing staff. Patient is not sedated. Bright, not irritable mood, pleasant and cooperative. Take meds and slept for 8 hours last night. No side effects. Patient would like to be discharged and think he is good to be home. No SI/SIB/HI/AVH. Will defer to primary team to make decision regarding discharge. Mood and sleep continue to improve. Thursday would be an appropriate day this week. Medication Compliance: Yes Side effects from medications: No Attending Groups: Yes Review of Systems Acute medical concerns: No Medical Review of Systems: unchanged Review of Systems Review of Systems No complaint. Yes all other systems are reviewed and are negative Mental Status Exam Mental Status Exam Narrative: A+O x3, wearing hospital attire, No ADL's issues. Speech is WNL, no manic behavior. No SI/SIB/HI/AVH. Fair judgment and insight. No irritable mood, less anxious and depressed. Organized, linear. Diagnostics Vital Signs (24Hr): Vital Signs - 24 hr 08/05/25 20:00 08/06/25 08:18 Temperature 98.4 F 97.6 F Pulse Rate 65 67 Respiratory Rate 16 16 Blood Pressure 107/71 121/71 Pulse Oximetry 95 97 Oxygen Delivery Method Room Air Room Air BMI result Body Mass Index 27.3 Labs 07/29/25 11:24 08/01/25 08:05 Medications Medications Current Medications Acetaminophen (Acetaminophen 325 Mg Tablet) 650 mg PO Q6H PRN PRN Reason: Headache/Pain, Scale 1-10 Last Admin: 08/04/25 05:50 Dose: 650 mg Al Hydroxide/Mg Hydroxide (Magnesium Hydrox/Alum Hydrox 30 Ml Oral.Susp) 30 ml PO Q6H PRN PRN Reason: Heartburn/Nausea Albuterol Sulfate (Albuterol Sulfate 90 Mcg 8 Gm Inhaler) 2 puff INHALE Q3H PRN PRN Reason: Wheezing Clonazepam (Clonazepam 1 Mg Tablet) 1 mg PO TID [facility] Last Admin: 08/06/25 15:47 Dose: 1 mg Clonidine HCl (Clonidine Hcl 0.1 Mg Tablet) 0.1 mg PO BID PRN; Protocol PRN Reason: Anxiety Last Admin: 08/03/25 21:25 Dose: 0.1 mg Doxepin HCl (Doxepin Hcl 25 Mg Capsule) 100 mg PO BEDTIME [facility] Last Admin: 08/05/25 20:22 Dose: 100 mg Fluticasone Propionate (Fluticasone Propionate Nasal 16 Gm [place]) 1 spray NOSTRIL-B DAILY [facility] Last Admin: 08/06/25 08:20 Dose: 1 spray Gabapentin (Gabapentin 300 Mg Capsule) 900 mg PO TID [facility] Last Admin: 08/06/25 15:47 Dose: 900 mg Gabapentin (Gabapentin 300 Mg Capsule) 300 mg PO BEDTIME [facility] Last Admin: 08/05/25 20:20 Dose: 300 mg Hydroxyzine HCl (Hydroxyzine Hcl 50 Mg Tablet) 50 mg PO TID [facility] Last Admin: 08/06/25 15:47 Dose: 50 mg Lidocaine (Lidocaine 4 % Patch Adh..Patch) 2 patch TRANSDERMA DAILY [facility]; Protocol Last Admin: 08/06/25 08:22 Dose: 2 patch Losartan Potassium (Losartan Potassium 50 Mg Tablet) 100 mg PO DAILY [facility]; Protocol Last Admin: 08/06/25 08:21 Dose: 100 mg Magnesium Hydroxide (Milk Of Magnesia 30 Ml Oral.Susp) 30 ml PO DAILY PRN PRN Reason: Constipation Methadone HCl (Methadone Hcl 20 Mg/2 Ml Oral.Conc) 120 mg PO DAILY [facility] Last Admin: 08/06/25 07:50 Dose: 120 mg Metoprolol Succinate (Metoprolol Succinate Er 50 Mg Tab.Er.24h) 50 mg PO DAILY [facility]; Protocol Last Admin: 08/06/25 08:21 Dose: 50 mg Montelukast Sodium (Montelukast Sodium 10 Mg Tablet) 10 mg PO DAILY [facility] Last Admin: 08/06/25 08:21 Dose: 10 mg Nifedipine (Nifedipine Er 60 Mg Tab.Er.24) 60 mg PO DAILY [facility] Last Admin: 08/06/25 08:21 Dose: 60 mg Olanzapine (Olanzapine 5 Mg Tablet) 5 mg PO BID PRN PRN Reason: agitation Last Admin: 08/03/25 21:25 Dose: 5 mg Quetiapine Fumarate (Quetiapine Fumarate 400 Mg Tablet) 400 mg PO BEDTIME [facility] Last Admin: 08/05/25 20:21 Dose: 400 mg Quetiapine Fumarate (Quetiapine Fumarate 25 Mg Tablet) 25 mg PO TID [facility] Last Admin: 08/06/25 15:47 Dose: 25 mg Zolpidem Tartrate (Zolpidem Tartrate 5 Mg Tablet) 10 mg PO BEDTIME [facility] Last Admin: 08/05/25 20:21 Dose: 10 mg Allergies Allergies Allergy/AdvReac Type Severity Reaction Status Date / Time ibuprofen (From Motrin) Allergy Abdominal Verified 07/29/25 10:44 Pain bee pollen (bee stings) AdvReac Severe Anaphylaxis Verified 07/29/25 10:44 Assessment & Plan Assessment & Plan (1) MDD (major depressive disorder), recurrent episode: Status: Acute Code(s): F33.9 - Major depressive disorder, recurrent, unspecified (2) Chronic post-traumatic stress disorder (PTSD): Status: Acute Code(s): F43.12 - Post-traumatic stress disorder, chronic (3) Opioid use disorder: Status: Acute Code(s): F11.90 - Opioid use, unspecified, uncomplicated (4) Cocaine use disorder: Status: Acute Code(s): F14.90 - Cocaine use, unspecified, uncomplicated (5) Polysubstance use disorder: Status: Acute Code(s): F19.90 - Other psychoactive substance use, unspecified, uncomplicated Plan Patient is a 59 year old male with hx of MDD, PTSD, opioid use d/o, cocaine use d/o who presented to ER via ambulance d/t suicidal ideation with a plan to jump off the [facility] secondary to increased depression and chronic pain. 08/01: Patient reports feeling better today; he reports no longer feeling suicidal. denies HI/VH/AH. Per nursing, pt observed sedated throughout the evening yesterday and this morning. Gabapentin decreased to 900mg PO TID and Seroquel 50mg PO TID DC'd; pt aware his medications were decreased d/t sedation level and is understanding. Patient reports he is sedated d/t not sleeping well the past 3 nights , he does not believe it is from his medications. Will continue to monitor sedation level, if continues heavily sedated, plan to continue tapering sedating medications. Continue tx plan 08/02: Active on unit. Patient continues to report feeling depressed today but states he is feeling better everyday . He reports sleeping well last night. denies SI/HI/VH/AH. Less sedated today. encouraged to attend groups. Continue tx plan. 08/04 Patient reports that he is feeling better. He says this time this time of year is always difficult for him given it is the anniversary of the deaths of several beloved people. Patient denies any SI saying it is fully resolved and depression getting better. He just needed some time to sort his feelings. Patient wanted to discuss medications. He says that he has been on gabapentin 1200 mg t.i.d. and higher dose of Seroquel for quite awhile and both have significantly helped with his pain and stability. Software Asset Management Analyst discussed staff's concern that he was sedated. Patient reiterated that he was only tired because he had not slept for about 3 days prior to this admission and was catching up on sleep. Patient agreed to titrating back these medications expecting that he will be able to demonstrate he can tolerate them without being sedated. Software Asset Management Analyst agreed to increase Seroquel to 25 mg t.i.d. (normally on 50 mg t.i.d.) Software Asset Management Analyst agreed to increasing bedtime gabapentin dose to 1200 mg (will leave the daytime gabapentin doses at 900 mg which can be increased if patient can tolerate 08/05/25: Patient has been visible, attended groups, social with peers and staff and being appropriate. No sedation observed. Denies SI/SIB/HI/AVH. He is happy with current regimens and feeling less anxious or depressed. Patient says he is ready to go home and asks when he will be discharged. He got annoyed by one of male peers but able to stay away from this peer. Compliant with meds, no side effects. no sedation, slept for 7 hours. Continue with current plan. Ambien renewed: was dropped which patient was irritable last night. 08/06/25: Visible, social and appropriate, helpful with some peers on the unit. Request Flu Vaccine. Wants clothes to be washed which patient was asked to touch base with nursing staff. Patient is not sedated. Bright, not irritable mood, pleasant and cooperative. Take meds and slept for 8 hours last night. No side effects. Patient would like to be discharged and think he is good to be home. No SI/SIB/HI/AVH. Will defer to primary team to make decision regarding discharge. Mood and sleep continue to improve. Thursday would be an appropriate day this week. Medications: Start Seroquel 25 mg t.i.d. (normally 50 mg t.i.d.) Continue Seroquel 400 mg q.h.s. Increase bedtime dose of gabapentin to 1200 mg -provider can increase gabapentin to 1200 mg t.i.d. as patient tolerates CV 15 minute safety checks Continue home medications Obtain collateral Referral to outpatient therapist Encourage groups Discharge planning Patient educated on: diagnosis, medication risk/benefits, substance abuse and therapeutic strategies Informed Consent: understands and further education needed Reason for continued inpatient stay Substantial Risk for: med/psych decompensation Time Spent With Patient Time: Total time managing care of this patient today ____ minutes.
[2025-08-06 21:28] VITALS: BP 128/81; PULSE 65; RESP 16; O2SAT 95
[2025-08-07] MEDS: methADONE HCl 20 MG/2 ML ORAL.CONC 120 MG PO (08:31)
[2025-08-07 09:07] VITALS: BP 153/83; PULSE 95; RESP 16; TEMP 36.4; O2SAT 97
[2025-08-07] MEDS: Metoprolol Succinate ER 50 MG TAB.ER.24H PO (09:09)
[2025-08-07] MEDS: NIFEdipine ER 60 MG TAB.ER.24 PO (09:09)
[2025-08-07] MEDS: Lidocaine 4 % Patch ADH..PATCH 2 PATCH TRANSDERMA (09:12)
--- NOTE | 2025-08-07 15:11 | P.PNPSI_ITS ---
Subjective Subjective Date of Service: 08/07/25 Reason For Visit: SI Subjective Notes: Conditional Voluntary Interim History: Patient focused on his mediation dose for Seroquel and Gabapentin; pt was re- educated on why his doses were decreased initially; pt stated, I'll just have my outpatient doctor bring them back up . Patient is appreciative of explanation regarding decrease in medications and expressed understanding. Patient reports feeling good and ready to return home ; denies SI/HI/VH/AH. Patient reports he plans on having his methadone clinic increase his methadone dose to help him in preventing relapse on substances. Patient reports he plans on following up with his outpatient providers. Medication Compliance: Yes Side effects from medications: No Attending Groups: Intermittent Mental Status Exam Mental Status Exam Narrative: Pt is alert and oriented; behavior is cooperative and calm; dressed in casual attire; mood is described as good ; eye contact appropriate; Speech is normal rate, volume and not pressured; thought process is organized; Thought content is on tx/discharge; denies SI/HI/VH/AH. Diagnostics Vital Signs (24Hr): Vital Signs - 24 hr 08/06/25 21:28 08/07/25 09:07 Temperature 97.6 F Pulse Rate 65 95 Respiratory Rate 16 16 Blood Pressure 128/81 153/83 H Pulse Oximetry 95 97 Oxygen Delivery Method Room Air Room Air BMI result Body Mass Index 27.3 Labs 07/29/25 11:24 08/01/25 08:05 Medications Medications Current Medications Acetaminophen (Acetaminophen 325 Mg Tablet) 650 mg PO Q6H PRN PRN Reason: Headache/Pain, Scale 1-10 Last Admin: 08/04/25 05:50 Dose: 650 mg Al Hydroxide/Mg Hydroxide (Magnesium Hydrox/Alum Hydrox 30 Ml Oral.Susp) 30 ml PO Q6H PRN PRN Reason: Heartburn/Nausea Albuterol Sulfate (Albuterol Sulfate 90 Mcg 8 Gm Inhaler) 2 puff INHALE Q3H PRN PRN Reason: Wheezing Clonazepam (Clonazepam 1 Mg Tablet) 1 mg PO TID [facility] Last Admin: 08/07/25 15:02 Dose: 1 mg Clonidine HCl (Clonidine Hcl 0.1 Mg Tablet) 0.1 mg PO BID PRN; Protocol PRN Reason: Anxiety Last Admin: 08/07/25 09:08 Dose: 0.1 mg Doxepin HCl (Doxepin Hcl 25 Mg Capsule) 100 mg PO BEDTIME [facility] Last Admin: 08/06/25 21:55 Dose: 100 mg Fluticasone Propionate (Fluticasone Propionate Nasal 16 Gm [place]) 1 spray NOSTRIL-B DAILY [facility] Last Admin: 08/07/25 09:13 Dose: 1 spray Gabapentin (Gabapentin 300 Mg Capsule) 900 mg PO TID [facility] Last Admin: 08/07/25 15:02 Dose: 900 mg Gabapentin (Gabapentin 300 Mg Capsule) 300 mg PO BEDTIME [facility] Last Admin: 08/06/25 21:55 Dose: 300 mg Hydroxyzine HCl (Hydroxyzine Hcl 50 Mg Tablet) 50 mg PO TID [facility] Last Admin: 08/07/25 15:02 Dose: 50 mg Lidocaine (Lidocaine 4 % Patch Adh..Patch) 2 patch TRANSDERMA DAILY [facility]; Protocol Last Admin: 08/07/25 09:12 Dose: 2 patch Losartan Potassium (Losartan Potassium 50 Mg Tablet) 100 mg PO DAILY [facility]; Protocol Last Admin: 08/07/25 09:08 Dose: 100 mg Magnesium Hydroxide (Milk Of Magnesia 30 Ml Oral.Susp) 30 ml PO DAILY PRN PRN Reason: Constipation Methadone HCl (Methadone Hcl 20 Mg/2 Ml Oral.Conc) 120 mg PO DAILY [facility] Last Admin: 08/07/25 08:31 Dose: 120 mg Metoprolol Succinate (Metoprolol Succinate Er 50 Mg Tab.Er.24h) 50 mg PO DAILY [facility]; Protocol Last Admin: 08/07/25 09:09 Dose: 50 mg Montelukast Sodium (Montelukast Sodium 10 Mg Tablet) 10 mg PO DAILY [facility] Last Admin: 08/07/25 09:09 Dose: 10 mg Nifedipine (Nifedipine Er 60 Mg Tab.Er.24) 60 mg PO DAILY [facility] Last Admin: 08/07/25 09:09 Dose: 60 mg Olanzapine (Olanzapine 5 Mg Tablet) 5 mg PO BID PRN PRN Reason: agitation Last Admin: 08/03/25 21:25 Dose: 5 mg Quetiapine Fumarate (Quetiapine Fumarate 400 Mg Tablet) 400 mg PO BEDTIME [facility] Last Admin: 08/06/25 21:54 Dose: 400 mg Quetiapine Fumarate (Quetiapine Fumarate 25 Mg Tablet) 25 mg PO TID [facility] Last Admin: 08/07/25 15:02 Dose: 25 mg Zolpidem Tartrate (Zolpidem Tartrate 5 Mg Tablet) 10 mg PO BEDTIME [facility] Last Admin: 08/06/25 21:55 Dose: 10 mg Allergies Allergies Allergy/AdvReac Type Severity Reaction Status Date / Time ibuprofen (From Motrin) Allergy Abdominal Verified 07/29/25 10:44 Pain bee pollen (bee stings) AdvReac Severe Anaphylaxis Verified 07/29/25 10:44 Assessment & Plan Assessment & Plan (1) MDD (major depressive disorder), recurrent episode: Status: Acute Code(s): F33.9 - Major depressive disorder, recurrent, unspecified (2) Chronic post-traumatic stress disorder (PTSD): Status: Acute Code(s): F43.12 - Post-traumatic stress disorder, chronic (3) Opioid use disorder: Status: Acute Code(s): F11.90 - Opioid use, unspecified, uncomplicated (4) Cocaine use disorder: Status: Acute Code(s): F14.90 - Cocaine use, unspecified, uncomplicated (5) Polysubstance use disorder: Status: Acute Code(s): F19.90 - Other psychoactive substance use, unspecified, uncomplicated Plan Patient is a 59 year old male with hx of MDD, PTSD, opioid use d/o, cocaine use d/o who presented to ER via ambulance d/t suicidal ideation with a plan to jump off the [facility] secondary to increased depression and chronic pain. Plan: CV 15 minute safety checks Continue home medications Obtain collateral Referral to outpatient therapist Encourage groups Discharge planning 08/01: Patient reports feeling better today; he reports no longer feeling suicidal. denies HI/VH/AH. Per nursing, pt observed sedated throughout the evening yesterday and this morning. Gabapentin decreased to 900mg PO TID and Seroquel 50mg PO TID DC'd; pt aware his medications were decreased d/t sedation level and is understanding. Patient reports he is sedated d/t not sleeping well the past 3 nights , he does not believe it is from his medications. Will continue to monitor sedation level, if continues heavily sedated, plan to continue tapering sedating medications. Continue tx plan 08/02: Active on unit. Patient continues to report feeling depressed today but states he is feeling better everyday . He reports sleeping well last night. denies SI/HI/VH/AH. Less sedated today. encouraged to attend groups. Continue tx plan. 08/04 Patient reports that he is feeling better. He says this time this time of year is always difficult for him given it is the anniversary of the deaths of several beloved people. Patient denies any SI saying it is fully resolved and depression getting better. He just needed some time to sort his feelings. Patient wanted to discuss medications. He says that he has been on gabapentin 1200 mg t.i.d. and higher dose of Seroquel for quite awhile and both have significantly helped with his pain and stability. Telephone Maintainer discussed staff's concern that he was sedated. Patient reiterated that he was only tired because he had not slept for about 3 days prior to this admission and was catching up on sleep. Patient agreed to titrating back these medications expecting that he will be able to demonstrate he can tolerate them without being sedated. Telephone Maintainer agreed to increase Seroquel to 25 mg t.i.d. (normally on 50 mg t.i.d.) Telephone Maintainer agreed to increasing bedtime gabapentin dose to 1200 mg (will leave the daytime gabapentin doses at 900 mg which can be increased if patient can tolerate 08/05/25: Patient has been visible, attended groups, social with peers and staff and being appropriate. No sedation observed. Denies SI/SIB/HI/AVH. He is happy with current regimens and feeling less anxious or depressed. Patient says he is ready to go home and asks when he will be discharged. He got annoyed by one of male peers but able to stay away from this peer. Compliant with meds, no side effects. no sedation, slept for 7 hours. Continue with current plan. Ambien renewed: was dropped which patient was irritable last night. 08/06/25: Visible, social and appropriate, helpful with some peers on the unit. Request Flu Vaccine. Wants clothes to be washed which patient was asked to touch base with nursing staff. Patient is not sedated. Bright, not irritable mood, pleasant and cooperative. Take meds and slept for 8 hours last night. No side effects. Patient would like to be discharged and think he is good to be home. No SI/SIB/HI/AVH. Will defer to primary team to make decision regarding discharge. Mood and sleep continue to improve. Thursday would be an appropriate day this week. 08/07: Patient focused on his mediation dose for Seroquel and Gabapentin; pt was re-educated on why his doses were decreased initially; pt stated, I'll just have my outpatient doctor bring them back up . Patient is appreciative of explanation regarding decrease in medications and expressed understanding. Patient reports feeling good and ready to return home ; denies SI/HI/VH/AH. Patient reports he plans on having his methadone clinic increase his methadone dose to help him in preventing relapse on substances. Patient reports he plans on following up with his outpatient providers. Patient educated on: diagnosis, medication risk/benefits and substance abuse Reason for continued inpatient stay Substantial Risk for: stable for discharge Time Spent With Patient Time: Total time managing care of this patient today _20___ minutes.
[2025-08-07] MEDS: Albuterol Sulfate 90 MCG 8 GM INHALER 2 PUFF INHALE (15:55)
[2025-08-07 19:20] VITALS: BP 105/73; PULSE 64; RESP 16; O2SAT 91
[2025-08-08] MEDS: methADONE HCl 20 MG/2 ML ORAL.CONC 120 MG PO (08:01)
[2025-08-08 08:38] VITALS: BP 107/63; PULSE 70
[2025-08-08] MEDS: Metoprolol Succinate ER 50 MG TAB.ER.24H PO (08:38)
[2025-08-08] MEDS: NIFEdipine ER 60 MG TAB.ER.24 PO (08:38)
[2025-08-08 08:39] VITALS: BP 107/63
[2025-08-08] MEDS: Naloxone HCl Nasal TAKE HOME 4 MG SPRAY 8 MG NOSTRILALT (08:41)
--- NOTE | 2025-08-08 09:11 | PM.PSYDC ---
DS: Providers Provider Date of admission: 07/31/25 12:11 Date of discharge: 08/08/25 Primary care physician: Amber Pacheco MD Admitting clinician: Mechelle Carranza Attending physician on admission: Lalit Johns Attending physician on discharge: Lalit Johns Discharging clinician: Mechelle Carranza DS: Diagnosis Discharge Diagnosis (1) MDD (major depressive disorder), recurrent episode: Status: Acute (2) Chronic post-traumatic stress disorder (PTSD): Status: Acute (3) Opioid use disorder: Status: Acute (4) Cocaine use disorder: Status: Acute (5) Polysubstance use disorder: Status: Acute DS: Medications Discharge Medications Home Medications: Home Medications ?Medication ?Instructions ?Recorded ?Confirmed albuterol sulfate 90 mcg/actuation 2 inh inhalation Q3-4H PRN Wheezing 09/01/24 07/29/25 aerosol inhaler (Ventolin HFA) lidocaine 4 % topical patch 1 patch topical DAILY 07/29/25 07/29/25 (Lidocaine Pain Relief) methadone 10 mg/mL oral 120 mg PO DAILY 07/29/25 07/29/25 concentrate (Methadone Intensol) nifedipine 60 mg tablet,extended 60 mg PO DAILY 07/31/25 07/31/25 release Previous Rx's ?Medication ?Instructions ?Recorded clonazepam 1 mg tablet (Klonopin) 1 mg PO TID severe anxiety #90 03/30/25 tabs clonidine HCl 0.1 mg tablet 0.1 mg PO BID PRN anxiety #60 tabs 03/30/25 doxepin 100 mg capsule 100 mg PO BEDTIME insomnia 30 03/30/25 days #30 caps fluticasone propionate 50 1 spray intranasal DAILY Nasal 03/30/25 mcg/actuation nasal congestion/alllergy #16 grams spray,suspension gabapentin 800 mg tablet 1,200 mg (1.5 x 800 mg) PO TID 03/30/25 severe nerve pain 30 days #135 tabs hydroxyzine pamoate 50 mg capsule 50 mg PO TID anxiety #90 caps 03/30/25 losartan 100 mg tablet 100 mg PO DAILY elevated lipid 03/30/25 profile #30 tabs metoprolol succinate 50 mg 50 mg PO DAILY Cardicac #30 tabs 03/30/25 tablet,extended release 24 hr montelukast 10 mg tablet 10 mg PO DAILY COPD/asthma #30 03/30/25 tabs olanzapine 5 mg tablet 5 mg PO BID PRN agitation #60 tabs 03/30/25 quetiapine 200 mg tablet 400 mg (2 x 200 mg) PO BEDTIME 03/30/25 mood #60 tabs quetiapine 50 mg tablet (Seroquel) 50 mg PO TID Mood #90 tabs 03/30/25 zolpidem 10 mg tablet (Ambien) 10 mg PO BEDTIME severe insomnia 03/30/25 #30 tabs Mental Status Exam Mental Status Exam Narrative: Pt is alert and oriented; behavior is cooperative and calm; dressed in casual attire; mood is described as good ; eye contact appropriate; Speech is normal rate, volume and not pressured; thought process is organized; Thought content is on tx/discharge; denies SI/HI/VH/AH. DS: Summary Hospital Course Hospital Course: Patient is a 59 year old male with hx of MDD, PTSD, opioid use d/o, cocaine use d/o who presented to ER via ambulance d/t suicidal ideation with a plan to jump off the [facility] bridge secondary to increased depression and chronic pain. Per crisis report, patient reported suicidal ideation with a plan to jump off the [facility] bridge due to chronic pain, worsening depression and hopelessness. Patient reports worsening depression and ongoing pain through his body and reported he fell prior to arrival to ER. Patient denies HI/VH/AH. He reports appetite is fair and sleep is poor. Hx of multiple inpatient psychiatric hospitalizations. Hx of suicide attempt via intentionally overdosing on heroin in 2021. History of superficially cutting in early 2024. Denies history of detox admissions. Utox positive for opiates, methadone, fentanyl, cocaine, phencyclidine and BAL 14. During admission assessment, patient presents alert and oriented x3. Calm and cooperative. Irritable edge. Patient reports feeling depressed and anxious ; patient stated, I feel like a failure. I feel like a burden to my son. I don't feel like he looks up to me anymore. I have had multiple losses during this time of year . Patient reports goal for admission is to, Straighten my head out because when my anxiety takes over I'm a different person . Patient reports he has been using heroin and cocaine but would not disclose amount. He also reported not using alcohol since 2004 however, when informed his Utox was positive for alcohol; patient stated, I had one beer . Patient reports he has an outpatient prescriber through [facility] however, can not recall name. He reports he does not have an outpatient therapist at this time. Patient reports he has not been medication compliant with all of his medications for the last month and does not know why. He reports +AH of mumbling and +VH of shadows . Denies HI. Patient reports he is not interested in the substance program; when asked for reasoning, patient stated, It doesn't work. I'm better on my own . Patient reports history of SIB early this year; patient stated, I was cutting for attention. It wasn't deep . He continues to report suicidal ideation with plan to jump from bridge. Plan: CV 15 minute safety checks Continue home medications Obtain collateral Referral to outpatient therapist Encourage groups Discharge planning Patient reports feeling better today; he reports no longer feeling suicidal. denies HI/VH/AH. Per nursing, pt observed sedated throughout the evening yesterday and this morning. Gabapentin decreased to 900mg PO TID and Seroquel 50mg PO TID DC'd; pt aware his medications were decreased d/t sedation level and is understanding. Patient reports he is sedated d/t not sleeping well the past 3 nights , he does not believe it is from his medications. Will continue to monitor sedation level, if continues heavily sedated, plan to continue tapering sedating medications. Continue tx plan Active on unit. Patient continues to report feeling depressed today but states he is feeling better everyday . He reports sleeping well last night. denies SI/HI/VH/AH. Less sedated today. encouraged to attend groups. Continue tx plan. Patient reports that he is feeling better. He says this time this time of year is always difficult for him given it is the anniversary of the deaths of several beloved people. Patient denies any SI saying it is fully resolved and depression getting better. He just needed some time to sort his feelings. Patient wanted to discuss medications. He says that he has been on gabapentin 1200 mg t.i.d. and higher dose of Seroquel for quite awhile and both have significantly helped with his pain and stability. F[employer] And Wellness Coordinator discussed staff's concern that he was sedated. Patient reiterated that he was only tired because he had not slept for about 3 days prior to this admission and was catching up on sleep. Patient agreed to titrating back these medications expecting that he will be able to demonstrate he can tolerate them without being sedated. Fitness And Wellness Coordinator agreed to increase Seroquel to 25 mg t.i.d. (normally on 50 mg t.i.d.) Fitness And Wellness Coordinator agreed to increasing bedtime gabapentin dose to 1200 mg (will leave the daytime gabapentin doses at 900 mg which can be increased if patient can tolerate Patient has been visible, attended groups, social with peers and staff and being appropriate. No sedation observed. Denies SI/SIB/HI/AVH. He is happy with current regimens and feeling less anxious or depressed. Patient says he is ready to go home and asks when he will be discharged. He got annoyed by one of male peers but able to stay away from this peer. Compliant with meds, no side effects. no sedation, slept for 7 hours. Continue with current plan. Ambien renewed: was dropped which patient was irritable last night. Visible, social and appropriate, helpful with some peers on the unit. Request Flu Vaccine. Wants clothes to be washed which patient was asked to touch base with nursing staff. Patient is not sedated. Bright, not irritable mood, pleasant and cooperative. Take meds and slept for 8 hours last night. No side effects. Patient would like to be discharged and think he is good to be home. No SI/SIB/HI/AVH. Will defer to primary team to make decision regarding discharge. Mood and sleep continue to improve. Thursday would be an appropriate day this week. Patient focused on his mediation dose for Seroquel and Gabapentin; pt was re-educated on why his doses were decreased initially; pt stated, I'll just have my outpatient doctor bring them back up . Patient is appreciative of explanation regarding decrease in medications and expressed understanding. Patient reports feeling good and ready to return home ; denies SI/HI/VH/AH. Patient reports he plans on having his methadone clinic increase his methadone dose to help him in preventing relapse on substances. Patient reports he plans on following up with his outpatient providers. Status at Discharge Cognitive/behavioral status at discharge: Patient has insight and demonstrates good judgment in terms of wanting to pursue treatment. Patient has a safety plan that includes presenting to the closest ER or calling 911 if feeling unsafe. Functional status at discharge: independent ambulation Overall status at discharge: patient is back to baseline Time Spent with Patient Time attestation: Total time managing care of this patient today _20___ minutes. Time spent: Less than 30 minutes Discharge Plan Discharge Anticipated Discharge Date/Time: 08/08/25 10:00 Patient Disposition: Home, Self-Care Discharge Diagnosis: MDD, PTSD, Opioid use d/o, Cocaine use d/o, Polysubstance use d/o Referrals: Therapy & Psychiatry [Other] - 1 Week Referral Note: *You can present to the clinic above, Thursday through Thursday during the hours of 10am and 12pm, in order to obtain outpatient mental health providers. Amber Pacheco MD [Primary Care Provider, Internal Medicine] - 1 Week Referral Note: 08-08-25 Your primary care provider has been notified of your discharge and will be in contact with the date and time of your follow up appt. Discharge Medications: Continued albuterol sulfate [Ventolin HFA] 90 mcg/actuation HFA aerosol inhaler 2 inh INHALATION Q3-4H PRN (Reason: Wheezing) clonidine HCl 0.1 mg Tablet 0.1 mg PO BID PRN (Reason: anxiety) Qty: 60 0RF Protocol: Hold for SBP< HOLD for SBP < : 90 olanzapine 5 mg Tablet 5 mg PO BID PRN (Reason: agitation) Qty: 60 0RF fluticasone propionate 50 mcg/actuation [place],Suspension 1 spray intranasal DAILY Qty: 16 0RF metoprolol succinate 50 mg tablet extended release 24 hr 50 mg PO DAILY Qty: 30 0RF quetiapine 200 mg tablet 400 mg PO BEDTIME Qty: 60 0RF clonazepam [Klonopin] 1 mg tablet 1 mg PO TID Qty: 90 0RF hydroxyzine pamoate 50 mg capsule 50 mg PO TID Qty: 90 0RF gabapentin 800 mg tablet 1,200 mg PO TID 30 Days Qty: 135 0RF doxepin 100 mg capsule 100 mg PO BEDTIME 30 Days Qty: 30 0RF montelukast 10 mg tablet 10 mg PO DAILY Qty: 30 0RF zolpidem [Ambien] 10 mg tablet 10 mg PO BEDTIME Qty: 30 0RF losartan 100 mg tablet 100 mg PO DAILY Qty: 30 0RF quetiapine [Seroquel] 50 mg tablet 50 mg PO TID Qty: 90 0RF methadone [Methadone Intensol] 10 mg/mL Concentrate 120 mg PO DAILY lidocaine [Lidocaine Pain Relief] 4 % adhesive patch,medicated 1 patch topical DAILY nifedipine 60 mg tablet extended release 60 mg PO DAILY Discontinued trazodone 50 mg Tablet 50 mg PO BEDTIME PRN (Reason: Insomnia) Qty: 30 0RF Discharge Orders: Discharge Order (Routine); Ordered 08/08/25 Ordered By: Mechelle Carranza Diet: Regular diet Activity on Discharge: As tolerated Stand Alone Forms: Patient Portal Discharge page, Community Support Print Language: Mohawk Activity Restrictions/Additional Instructions: You were seen in our Emergency Department today for treatment of a behavioral health issue. It is important after your visit that you follow up with either your behavioral health provider or a primary care doctor within 7 days.? If you have trouble finding a therapist you can reach out to [address] [phone] The National Suicide and Crisis Lifeline can be reached 7 days a week 24 hours a day.? Call 988 to speak with someone.? Return for any worsening symptoms or concerns such as thoughts of self harm or harm to others. Please call 911 if you feel your mental health is worsening.? Care Plan Goals: Maintain mood and safe behaviors Take medications as prescribed Continue to pursue sobriety Practice coping skills Continue with outpatient providers and reach out to them as needed Health Concerns: Mood stability and behaviors Sobriety Plan of Treatment: Follow up with your PCP, psychiatric provider and other outpatient providers regarding above concerns Take medications as prescribed Assessment: Patient has insight and demonstrates good judgment in terms of wanting to pursue treatment. Patient has a safety plan that includes presenting to the closest ER or calling 911 if feeling unsafe. Discharge Date/Time: 08/08/25 10:45
== END 2025-08-08 10:45 | disposition home or self-care (01) | DRG 751 ==
LOC: HO.ED 07-31 12:15 → HO.PADLT16 07-31 13:31
PROVIDERS: Registered Nurse Emergency; Admitting Provider Registered Nurse; Emergency Provider Emergency Medicine; PCP Internal Medicine; Responsible Provider Registered Nurse; Visit Provider Psychiatry & Neurology Psychiatry
DX: F33.9 Major depressive disorder, recurrent, unspecified (principal); R45.851 Suicidal ideations; I11.9 Hypertensive heart disease without heart failure; F43.12 Post-traumatic stress disorder, chronic; F11.20 Opioid dependence, uncomplicated; F14.90 Cocaine use, unspecified, uncomplicated; F19.90 Other psychoactive substance use, unspecified, uncomplicated; F43.20 Adjustment disorder, unspecified; S80.02XA Contusion of left knee, initial encounter; W10.9XXA Fall (on) (from) unspecified stairs and steps, initial encounter; G47.00 Insomnia, unspecified; J44.9 Chronic obstructive pulmonary disease, unspecified; Z91.51 Personal history of suicidal behavior; Z91.52 Personal history of nonsuicidal self-harm; Y93.9 Activity, unspecified; Y92.009 Unspecified place in unspecified non-institutional (private) residence as the place of occurrence of the external cause; Y99.9 Unspecified external cause status; Z23 Encounter for immunization; Z79.899 Other long term (current) drug therapy; Z88.6 Allergy status to analgesic agent
CPT/HCPCS: 36415; 70450; 72072; 72125; 73564; 73610; 80053; 80061; 80307; 81003; 83036; 83735; 85025; 87637; 90656; 93005; 99285; S9485

== ENCOUNTER → 2025-07-29 10:42 | Outpatient (BNV) | payer OTHER, SELFPAY | PROVIDERS: Emergency Provider Emergency Medicine; PCP Internal Medicine; Visit Provider Internal Medicine Cardiovascular Disease | DX: Z04.3 Encounter for examination and observation following other accident (principal) | CPT/HCPCS: 93010 ==

== ENCOUNTER → 2025-07-29 10:42 | Outpatient (BNV) | payer OTHER, SELFPAY | PROVIDERS: Emergency Provider Emergency Medicine; PCP Internal Medicine; Visit Provider Radiology Diagnostic Radiology | DX: S09.90XA Unspecified injury of head, initial encounter (principal); M25.562 Pain in left knee; M51.34 Other intervertebral disc degeneration, thoracic region; M25.572 Pain in left ankle and joints of left foot; Z04.3 Encounter for examination and observation following other accident | CPT/HCPCS: 70450; 72072; 72125; 73564; 73610 ==

== ENCOUNTER → 2025-07-31 12:11 | Outpatient (BNV) | payer OTHER, SELFPAY | PROVIDERS: Admitting Provider Registered Nurse; Emergency Provider Emergency Medicine; PCP Internal Medicine; Responsible Provider Registered Nurse; Visit Provider Nurse Practitioner Family | DX: I10 Essential (primary) hypertension (principal) | CPT/HCPCS: 99221 ==

== ENCOUNTER → 2025-07-31 12:11 | Outpatient (BNV) | payer OTHER, SELFPAY | PROVIDERS: Admitting Provider Registered Nurse; Emergency Provider Emergency Medicine; PCP Internal Medicine; Responsible Provider Registered Nurse; Visit Provider Psychiatry & Neurology Psychiatry | DX: F33.9 Major depressive disorder, recurrent, unspecified (principal); F43.12 Post-traumatic stress disorder, chronic; F11.90 Opioid use, unspecified, uncomplicated; F14.90 Cocaine use, unspecified, uncomplicated; F19.90 Other psychoactive substance use, unspecified, uncomplicated | CPT/HCPCS: 90792; 99231; 99232 ==